=== PATIENT | male | born 1935 | race Caucasian/White ===

== ENCOUNTER 2020-02-26 15:33 | Inpatient (IN) | payer OTHER ==
[~2020-02-26] VITALS: Ht 175.3 cm; Wt 61.6 kg
[~2020-02-26 15:33] MED LIST: ASPIRIN EC81 M1 PO; CIPRO500 MG PO; HYDROCODON-ACE1 EAC7 PO; LIPITOR10 MG PO; MOBIC7.5 MG PO; NEURONTIN 300300 M1 PO
[2020-02-26 15:45] VITALS: BP 137/47
[2020-02-26 16:20] LABS: ABSOLUTE NEUTROPHILS 5.8 thou/uL (1.4-8.2); BASOPHILS 1.2 % (0.0-2.0); EOSINOPHILS 1.1 % (0.0-3.0); HEMATOCRIT 40.1 % (42.0-52.0); HEMOGLOBIN 13.3 gm/dL (14.0-18.0); LYMPHOCYTES 17.4 % (24.0-44.0); MCH 26.8 pg (26.0-34.0); MCHC 33.3 g/dL (28.0-37.0); MCV 80.6 fL (80.0-100.0); MONOCYTES 7.3 % (1.0-8.0); RBC 4.97 mil/uL (4.50-6.00); RDW 19.6 % (10.5-14.5)
[2020-02-26 16:24] LABS: ANION GAP 9 mmol/L (7-16); BUN 26 mg/dL (7-18); CALCIUM 9.1 mg/dL (8.5-10.1); CHLORIDE 105 mmol/L (98-107); CO2 25 mmol/L (21-32); CREATININE 2.3 mg/dL (0.7-1.3); GLUCOSE 118 mg/dL (74-106); POTASSIUM 4.9 mmol/L (3.5-5.1); SODIUM 139 mmol/L (136-145)
[2020-02-26 16:26] LABS: URINE BILIRUBIN NEGATIVE (Negative); URINE BLOOD 1+ (Negative); URINE CLARITY CLOUDY; URINE COLOR YELLOW; URINE GLUCOSE-RANDOM* NEGATIVE (Negative); URINE KETONES NEGATIVE (Negative); URINE LEUKOCYTES-REFLEX NEGATIVE (Negative); URINE NITRITE-REFLEX NEGATIVE (Negative); URINE PROTEIN (DIPSTICK) 3+ (Negative); URINE SPECIFIC GRAVITY >= 1.030 (1.005-1.035); URINE UROBILINOGEN 0.2 E.U./dl (0.2-1.0)
[2020-02-26 16:32] LABS: TROPONIN-I <0.06 ng/mL (<0.06)
[2020-02-26 16:38] LABS: HYALINE CASTS 4-10 Moderate /LPF (None Seen)
[2020-02-26 16:39] LABS: URINE RBC 0-2 Rare /HPF (0-2); URINE WBC-REFLEX 0-5 Rare /HPF (0-5)
[2020-02-26 16:40] LABS: PLATELET COUNT 146 thou/uL (150-400)
[2020-02-26 16:40] LABS: BACTERIA-REFLEX 1-9 Few /HPF (None Seen); CRYSTALS None Seen /LPF (None Seen); SQUAMOUS 0-3 Few /LPF (0-3)
[2020-02-26 16:41] LABS: PLATELET ESTIMATE NORMAL
[2020-02-26] MEDS ORDERED: KETOROLAC TROMET5 M1 EA. EYE (17:03)
[2020-02-26] MEDS ORDERED: OFLOXACIN5 ML OPHTHALMIC (17:04)
[2020-02-26] MEDS ORDERED: PRED FORTE 1% EY5 M1 OPHTHALMIC (17:04)
[2020-02-26] MEDS ORDERED: LOPRESSOR50 PO (17:05)
[2020-02-26] MEDS ORDERED: METFORMIN HCL500 M3 PO (17:05)
[2020-02-26 18:15] VITALS: BP 136/44
[2020-02-26 19:35] VITALS: BP 136/44
[2020-02-26] MEDS ORDERED: VITAMIN D310 MC4 PO (19:38)
[2020-02-26] MEDS ORDERED: VITAMIN B-121000 MC2 PO (19:39)
[2020-02-26] MEDS ORDERED: MIRTAZAPINE7.5 MG PO (19:39)
[2020-02-26 20:10] VITALS: BP 135/52
--- NOTE | 2020-02-26 23:14 | NUR ---
PATIENT WAS A NEW ADMISSION TO THE UNIT THIS SHIFT. HE ARRIVED VIA CART FROM THE ER AND WAS ABLE TO AMBULATE TO THE BED INCIDENT FREE WITH STANDBY ASSISTANCE. PATIENT IS FULLY ALERT AND ORIENTED AND ABLE TO PARTICIPATE IN HIS ADMISSION. BLOOD PRESSURE STABLE WITH PATIENT EXPERIENCING SEVERE BRADYCARDIA DUE TO 2:1 HEART BLOCK WITH PROVIDER AWARE. PATIENT TO BE ON BED REST THROUGHOUT SHIFT WITH CLOSE MONITORING. NURSE TO COMPLETE THE ADMISSION AND INITIATE PLAN OF CARE.
[2020-02-26 23:52] VITALS: BP 130/55
[2020-02-27] VITALS (11 sets, daily range): BP systolic 117–161; BP diastolic 37–82
[2020-02-27] MEDS ORDERED: MELOXICAM15 MG PO (00:26)
[2020-02-27] MEDS ORDERED: PROTONIX40 M4 PO (00:29)
[2020-02-27] MEDS ORDERED: DESYREL150 MG PO (00:40)
[2020-02-27 05:02] LABS: HEMATOCRIT 39.4 % (42.0-52.0); HEMOGLOBIN 12.5 gm/dL (14.0-18.0); MCHC 31.7 g/dL (28.0-37.0); RBC 4.8 mil/uL (4.50-6.00); RDW 19.1 % (10.5-14.5); WBC 8.5 thou/uL (4.0-11.0)
[2020-02-27 05:06] LABS: CALCIUM 8.1 mg/dL (8.5-10.1); CREATININE 3.1 mg/dL (0.7-1.3); POTASSIUM 5.6 mmol/L (3.5-5.1)
--- NOTE | 2020-02-27 07:51 | NUR ---
PATIENT WAS SHIFT CHANGE ADMISSION TO THE UNIT. PATIENT BECAME MORE CONFUSED AND IMPULSIVE THE NIGHT PROGRESSED. ORIENTED TO SELF AND IMPULSIVE, PATIENT WAS RE DIRECTABLE. PATIENTS PULSE STAYED IN 30'S TO HIGH 20'S THROUGHOUT SHIFT WITH BLOOD PRESSURE STABLE AND MOSTLY ASSYMPTOMATIC. PROVIDER WAS AWARE OF PATIENTS CONDITION. NPO FROM MIDNIGHT ON IN ANTICIPATION OF TODAYS PROCEDURES. CONTINUE PLAN OF CARE.
--- NOTE | 2020-02-27 08:36 | EKG ---
[facility] [place] [address] ELECTROCARDIOGRAM REPORT Name: VIRA NOVAK GARRETT Room #: 204-P ADM IN M.R.#: [id number] Admission: 02/26/20 Attend Phys: Vanessa Montgomery MD Discharge: Date of : 39 Report #: [id number] THIS REPORT FOR: cc: Tod Parker MD, Stanley P. MD Lundgren, Craig H. MD [facility] ~ THIS REPORT FOR: //name// [facility] ED Test Date: 2020-02-26 Test Time: 15:46:35 Pat Name: VIRA NOVAK Department: Room: 204 Gender: M First Sampler: OFELIA : 1935 Requested By: [place] Tamayo Order Number: [id number] MD: Ravin Hickey Measurements Intervals [place] Rate: 36 P: 72 WI: 228 QRS: 8 QRSD: 159 T: 79 QT: 563 QTc: 436 Interpretive Statements Predominant 2:1 AV block Right bundle branch block Probable anterior infarct, old Compared to ECG 04/06/2009 08:34:46 2:1 AV block now present Right bundle-branch block now present Electronically Signed On 02-27-2020 8:35:50 CDT by Ravin Hickey [email or web address] <ELECTRONICALLY SIGNED> By: Ravin Hickey MD, FAC 02/27/20 0835 1546 1546 Ravin Hickey MD, [facility] /EPI
--- NOTE | 2020-02-27 08:52 | EKG ---
[facility] [address] [place] [address] ELECTROCARDIOGRAM REPORT Name: VIRA NOVAK GARRETT Room #: 204-P ADM IN M.R.#: [id number] Admission: 02/26/20 Attend Phys: Vanessa Montgomery MD Discharge: Date of : 39 Report #: [id number] THIS REPORT FOR: cc: Tod Parker MD, Stanley P. MD Lundgren, Craig H. MD [facility] ~ THIS REPORT FOR: //name// [facility] Test Date: 2020-02-27 Test Time: 07:08:24 Pat Name: VIRA NOVAK Department: Room: 204 Gender: M Chef German: NILDA : 1935 Requested By: Jose M Mina Order Number: [id number] MD: Ravin Hickey Measurements Intervals [place] Rate: 33 P: 77 ND: QRS: 81 QRSD: 150 T: 40 QT: 595 QTc: 441 Interpretive Statements Complete AV block Right bundle branch block Baseline wander in lead(s) V5 Compared to ECG 02/26/2020 15:46:35 AV block, complete (third-degree) now present Electronically Signed On 02-27-2020 8:52:04 CDT by Ravin Hickey [email or web address] <ELECTRONICALLY SIGNED> By: Ravin Hickey MD, [facility] 02/27/20 0852 7 07 Ravin Hickey MD, FAC /EPI
[2020-02-27 11:06] LABS: CALCIUM 7.8 mg/dL (8.5-10.1); CREATININE 3.4 mg/dL (0.7-1.3); POTASSIUM 4.7 mmol/L (3.5-5.1)
--- NOTE | 2020-02-27 12:04 | NUR ---
Chart reviewed and case discussed with the care team. Pt lives at home with his spouse and has supportive family. He was indep with gait and most adl's with no assistive device. Pt's pcp is and manager intelligence Dr. Mina. Plan is for pacemaker pending covid test. No cm interventions indicated at this time. Pt was a little confused over night. Will ask the care team for therapy evals should they note any mobility concerns post op. Will follow along should dc needs arise.
--- NOTE | 2020-02-27 12:38 | 2DMMODE ---
[facility] [place] [address] 2 D/M-MODE ECHOCARDIOGRAM Name: VIRA NOVAK GARRETT Room #: 204-P ADM IN M.R.#: [id number] Admission: 02/26/20 Attend Phys: Vanessa Montgomery MD Discharge: Date of : 37 Report #: [id number] THIS REPORT FOR: cc: Tod Parker MD, Stanley P. MD Mancuso, Gerald M. MD [facility] ~ APPROVED REPORT Study performed: 02/27/2020 10:49:31 EXAM: Comprehensive 2D, Doppler, and color-flow Echocardiogram Patient Location: Bedside Room #: 204 Status: routine BSA: 1.81 HR: 35 bpm BP: 145/46 mmHg Rhythm: Bradycardia Other Information Study Quality: Good Indications Arrhythmia CAD Hypertension/HDD 2D Dimensions RVDd: 39.03 mm IVSd: 9.68 (7-11mm) LVOT Diam: 20.10 (18-24mm) LVDd: 52.90 mm PWd: 10.41 (7-11mm) Ascending Ao: 34.18 (22-36mm) LVDs: 37.29 (25-40mm) Aortic Root: 32.39 mm IVC: 24.00 mm Volumes Left Atrial Volume (Systole) Single Plane 4CH: 49.65 mL Single Plane 2CH: 60.86 mL LA ESV Index: 34.00 mL/m2 Aortic Valve AoV Peak Nayan.: 1.59 m/s AO Peak Gr.: 10.05 mmHg LVOT Max P.15 mmHg LVOT Max V: 1.02 m/s [facility] [address] [place] [address] 2 D/M-MODE ECHOCARDIOGRAM Name: KISHOREVIRA GARRETT Room #: 204-P [facility] IN ..#: [id number] Admission: 02/26/20 Attend Phys: Moise Brown Discharge: Date of : 37 Report #: [id number] Vmax: 2.04 cm2 Pulmonary Valve PV Peak Nayan.: 0.97 m/s PV Peak Gr.: 3.77 mmHg Tricuspid Valve TR Peak Nayan.: 3.39 m/s TR Peak Gr.: 46.09 mmHg PA Pressure: 56.00 mmHg Left Ventricle The left ventricle is normal size. There is hypokinesis in the apical wall. There is normal left ventricular wall thickness. The overall left ventricular systolic function appears normal. LVEF is 50%. This study is not technically sufficient to allow evaluation of the LV diastolic function. Right Ventricle The right ventricle is normal size. The right ventricular systolic function is normal. Atria Left atrium is dilated. Right atrium is dilated. Aortic Valve The aortic valve is normal in structure. Mild aortic regurgitation. There is no aortic valvular stenosis. Mitral Valve The mitral valve is normal in structure. Mild mitral regurgitation. No evidence of mitral valve stenosis. Tricuspid Valve The tricuspid valve is normal in structure. There is moderate tricuspid regurgitation. Estimated PAP 56 mmHg. There is moderate pulmonary hypertension. Pulmonic Valve The pulmonary valve is normal in structure. Mild pulmonic regurgitation. Great Vessels The aortic root is normal in size. IVC is dilated and collapses >50% with inspiration. Pericardium [facility] [address] [address] 2 D/M-MODE ECHOCARDIOGRAM Name: VIRA NOVAK Room #: 204-P [facility] IN .R.#: [id number] Admission: 02/26/20 Attend Phys: Moise Brown Discharge: Date of : 37 Report #: [id number] There is no pericardial effusion. <Conclusion> The left ventricle is normal size. LVEF is 50%. This study is not technically sufficient to allow evaluation of the LV diastolic function. The right ventricle is normal size. Left atrium is dilated. Right atrium is dilated. Mild aortic regurgitation. Mild mitral regurgitation. There is moderate tricuspid regurgitation. Estimated PAP 56 mmHg. There is moderate pulmonary hypertension. The aortic root is normal in size. There is no pericardial effusion. <ELECTRONICALLY SIGNED> By: Jose M Mina MD, [facility] 02/27/20 1237 1237 1237 Jose M Mina MD, FACC /INF
[2020-02-27 13:36] LABS: URINE BILIRUBIN 1+ (Negative); URINE BLOOD TRACE (Negative); URINE CLARITY CLEAR; URINE COLOR YELLOW; URINE GLUCOSE-RANDOM* NEGATIVE (Negative); URINE KETONES NEGATIVE (Negative); URINE LEUKOCYTES-REFLEX NEGATIVE (Negative); URINE NITRITE-REFLEX NEGATIVE (Negative); URINE PROTEIN (DIPSTICK) 3+ (Negative); URINE SPECIFIC GRAVITY >= 1.030 (1.005-1.035); URINE UROBILINOGEN 0.2 E.U./dl (0.2-1.0)
[2020-02-27 13:39] LABS: ICTOTEST (BILI CONFIRMATORY) Positive (Negative)
[2020-02-27 13:46] LABS: HYALINE CASTS 4-10 Moderate /LPF (None Seen)
[2020-02-27 13:47] LABS: SQUAMOUS 0-3 Few /LPF (0-3); URINE WBC-REFLEX 0-5 Rare /HPF (0-5)
[2020-02-27 13:48] LABS: BACTERIA-REFLEX 1-9 Few /HPF (None Seen); CRYSTALS None Seen /LPF (None Seen); URINE RBC 0-2 Rare /HPF (0-2)
--- NOTE | 2020-02-27 19:05 | NUR ---
ASSUMMED PT CARE AT APPROXIMATELY 0700. PT A&O X2. PT CONFUSED AND FORGETFUL THROUGHOUT THE DAY. FREQUENT REORIENTATION PROVIDED. ASSESSMENT CHARTED. FALL PRECAUTIONS IN PLACE. PT DENIES HAVING CHEST PAIN. PT DENIES HAVING SOB. PT DENIES HAVING ACUTE PAIN. INFORMED DR. ALBERT OF PT'S BUN AND SCREW MACHINE HAND LEVELS, CONTINUING CONFUSION, AND LOW URINE OUTPUT. DR. ALBERT STATED UNDERSTANDING AND ENTERED NEW ORDERS. NEW ORDERS IMPLEMENTED. WILL CONTINUE TO MONITOR LABS. PT HAD PACEMAKER PLACEMENT TODAY. L SUBLAVIAN SITE C/D/I. PT BACK TO FLOOR AT APPROXIMATELY 1730. VITAL SIGNS STABLE. BLOOD SUGARS STABLE. PT COMFORTABLE IN BED. BEDREST IN PLACE, IMMOBILIZER IN PLACE. PT DENIES HAVING FURTHER CONCERNS. EDUCATED SPOUSE ABOUT POC. SPOUSE STATED UNDERSTANDING AND DENIED HAVING FURTHER CONCERNS.
[2020-02-28] VITALS (47 sets, daily range): BP systolic 92–166; BP diastolic 41–78
[2020-02-28 06:43] LABS: PROT/CREAT RATIO 0.6; URINE CREATININE-RANDOM* 48.6 mg/dL; URINE PROTEIN-RANDOM* 28.9 mg/dL (<11.9)
[2020-02-28 08:05] LABS: CALCIUM 7.9 mg/dL (8.5-10.1); PHOSPHORUS 2.6 mg/dL (2.5-4.9); POTASSIUM 3.9 mmol/L (3.5-5.1)
--- NOTE | 2020-02-28 08:11 | NUR ---
ASSUME CARE 1900. A/O TO PERSON ONLY AND VERY IMPULSIVE. PT IS FORGETFUL AND CONFUSED AND NEEDS FREQUENT REDIRECTION AND EDUCATION ON THE NEED TO REMAIN BEDREST TILL MORNING. ASSESSMENT CHARTED. PROGRESSING SLOWLY WITH POC. INCONTINENCE NOTED WITH MODERATE URINE OUTPUT. BLADDER SCAN SHOWED 632 IN BLADDER, DESPITE ALL THE INCONTINENCE. ANNABEL RAMEY'S ORDERS TO INSERT PERALTA. 900ML NOTED ON INITIAL INDERTION. NO DISTRESS NOTED AND PT IS APACED. WILL CONTINUE TO MONIOR AND FOLLOW WITH POC
[2020-02-28 08:50] LABS: ALBUMIN 3.2 g/dL (3.4-5.0)
[2020-02-28 08:55] LABS: CREATININE 2.4 mg/dL (0.7-1.3)
[2020-02-28 10:03] LABS: BE(vivo) -14.9 mmol/L (-2 to +3); HCO3 11.7 mmol/L (22.0-26.0); PCO2 30.3 mmHg (35.0-45.0); PO2 60.3 mmHg (80.0-100.0); pH 7.204 (7.360-7.450)
--- NOTE | 2020-02-28 12:16 | 2DMMODE ---
[address] [address] 2 D/M-MODE ECHOCARDIOGRAM Name: VIRA NOVAK Room #: 250-P ADM IN M.R.#: [id number] Admission: 02/26/20 Attend Phys: Vanessa Montgomery MD Discharge: Date of : 37 Report #: [id number] THIS REPORT FOR: cc: Tod Parker MD, Stanley P. MD Lammoglia, Francisco J. MD ~ APPROVED REPORT Study performed: 02/28/2020 10:48:30 EXAM: Limited 2D Echocardiogram Patient Location: Bedside Room #: 204 Status: routine BSA: 1.81 HR: 110 bpm BP: 149/71 mmHg Other Information Study Quality: Technically Difficult Technically limited study due to inability to position patient, uncooperative patient. Left Ventricle Very limited study. EF appears grossly normal. Right Ventricle Pacemaker lead is present in the right ventricle. Atria A pacemaker is seen in the right atrium consistent with history. Pericardium There is no pericardial effusion. <Conclusion> Very limited study. EF appears grossly normal. Pacemaker lead is present in the right ventricle. A pacemaker is seen in the right atrium consistent with [address] [address] 2 D/M-MODE ECHOCARDIOGRAM Name: VIRA NOVAK Room #: 250-P ADM IN M.R.#: [id number] Admission: 02/26/20 Attend Phys: Moise Brown Discharge: Date of : 37 Report #: [id number] history. There is no pericardial effusion. <ELECTRONICALLY SIGNED> By: Jason Faustin MD 02/28/201215 15 15 Jason Faustin MD /INF
[2020-02-28 12:19] LABS: BE(vivo) -13.3 mmol/L (-2 to +3); HCO3 14.3 mmol/L (22.0-26.0); PCO2 39.5 mmHg (35.0-45.0); PO2 173.8 mmHg (80.0-100.0); sO2 98.8 % (92.0-98.0)
[2020-02-28 12:20] LABS: pH 7.178 (7.360-7.450)
--- NOTE | 2020-02-28 12:30 | NUR ---
PT CARE ASSUMED APPROX 0700. ASSESSMENT CHARTED. PT WAS VERY CONFUSED THIS AM BUT VSS AND BREATH SOUNDS CLEAR. UPON ROUNDING AROUND 0900 IT WAS NOTED THAT PT HAD CRACKLES AND WAS TACHYPNEIC. VITAL SIGNS WERE REASSESSED AT IT WAS NOTED THAT PT WAS DESATTING WOTH 02 LEVEL IN 70s. RESP THERAPIST WAS PAGED AND CAME AND PLACED NONREBREATHER ON PT. SAT LEVEL REMAINED LOW SO ABGs WERE OBTAINED AND PULM CONSULT PLACED. ICU BED REQUESTED AT THAT TIME. DR HARKINS ROUNDED AND ASSESSED PT. BIPAP WAS ORDERED. ABGS WERE CRITICAL AND SATS REMAINED LOW ON BIPAP. ABGS WERE REPORTED TO DR LAW WHEN HE CALL BACK FROM CONSULT. ONCE DR LAW ROUNDED PT WAS INTUBATED. PT TRANSFERRED TO ICU. RECEIVING ICU NURSE DENIED QUESTIONS OR CONCERNS REGARDING POC.
--- NOTE | 2020-02-28 12:49 | NUR ---
VASCULAR ACCESS CONSULTED FOR CVAD. PT'S LABS,MEDS,HX,ORDER AND CONSENT VERIFIED. RIJ WAS WIDELY PATENT WITH USG. 6FR TL POWER JACC 25CM INSERTED TO 8CM EXTERNAL. STAT CXR ORDERED. PT INTUBATED TOLERATED WELL. CONSENT PER DR LAW FOR MEDICAL NECCESSITY.
--- NOTE | 2020-02-28 14:03 | NUR ---
RIJ CXR CONFIRMED PLACEMENT IN LOWER SVC. RELEASED FOR IMMEDIATE USE PER PROTOCOL TO MARLEEN BECERRIL
[2020-02-28 14:09] LABS: HEMATOCRIT 37.7 % (42.0-52.0); MCH 26.1 pg (26.0-34.0); MCHC 31.9 g/dL (28.0-37.0); RBC 4.6 mil/uL (4.50-6.00); RDW 19.9 % (10.5-14.5); WBC 13.6 thou/uL (4.0-11.0)
[2020-02-28 14:14] LABS: CALCIUM 7.7 mg/dL (8.5-10.1); CREATININE 2.7 mg/dL (0.7-1.3); POTASSIUM 4.8 mmol/L (3.5-5.1)
[2020-02-28 16:40] LABS: BE(vivo) -4.6 mmol/L (-2 to +3); HCO3 20.5 mmol/L (22.0-26.0); PCO2 38.4 mmHg (35.0-45.0); PO2 314.7 mmHg (80.0-100.0); pH 7.346 (7.360-7.450); sO2 99.7 % (92.0-98.0)
--- NOTE | 2020-02-28 18:40 | NUR ---
PATIENT ADMITTED FROM CCU BY THIS RN; PATIENT INTUBATED AND SEDATED ON PROPOFOL. BP 83/37; HR 99; RR 33 SP02 95% ON FIO2 100%, PEEP 8. PATIENT'S CALLED AND UPDATED BY CCU RN. BELONGINGS AT THE BEDSIDE, PATIENT VISITED AT 1400, WENT HOME WITH PATIENT'S PHONE, BRACELET, AND WATCH. REMAINING BELONGINGS (CLOTHING AT THE BEDSIDE). PROPOFOL REDUCED FROM 40MCG/MIN TO 20, PATIENT NOT MOVING ANY EXTREMITY. WEAK COUGH/GAG REFLEX.
[2020-02-29] VITALS (90 sets, daily range): BP systolic 87–138; BP diastolic 31–88
[2020-02-29 05:11] LABS: BE(vivo) -2.9 mmol/L (-2 to +3); HCO3 20.7 mmol/L (22.0-26.0); PCO2 32.5 mmHg (35.0-45.0); pH 7.422 (7.360-7.450); sO2 98.8 % (92.0-98.0)
[2020-02-29 05:57] LABS: HEMOGLOBIN 12.4 gm/dL (14.0-18.0); MCH 25.8 pg (26.0-34.0); MCHC 31.8 g/dL (28.0-37.0); MCV 81.3 fL (80.0-100.0); RBC 4.8 mil/uL (4.50-6.00); RDW 19.4 % (10.5-14.5); WBC 9.3 thou/uL (4.0-11.0)
[2020-02-29 06:22] LABS: CREATININE 2.9 mg/dL (0.7-1.3)
[2020-02-29 06:39] LABS: POTASSIUM 3.7 mmol/L (3.5-5.1)
--- NOTE | 2020-02-29 08:58 | NUR ---
ASSESSMENTS AND INTERVENTIONS DOCCUMENTED. RN ASSUMED CARE AT 0700. PATIENT RESTING. RENAL BY TO ASSESS PATIENT, ORDERS RECIEVED. PATIENT PLACED ON CPAP MODE PE RT. PATIENT TOLERATING IT WELL AT THIS TIME.
[2020-02-29 09:58] LABS: BE(vivo) -3.5 mmol/L (-2 to +3); HCO3 20.7 mmol/L (22.0-26.0); PO2 78.5 mmHg (80.0-100.0); sO2 95.6 % (92.0-98.0)
[2020-03-01] VITALS (36 sets, daily range): BP systolic 110–170; BP diastolic 36–69
--- NOTE | 2020-03-01 03:58 | NUR ---
ASSUMED PT CARE AROUND 2300. PT REMAINED SEDATED WITH PROPOFOL ON THE VENT. V-PACED ON TELE. LEVO GTT FOR BP MANAGEMENT. TITRATED LEVO GTT DOWN SBP HAS BEEN 130S-140S. REPOSITIONED TO PREVENT SKIN BREAKDOWN. ORAL CARE PROVIDED. PERALTA TO DD WITH ADEQUATE URINE OUTPUT. FALL PRECAUTIONS IN PLACE. PROGRESSING SLOWLY TOWARD POC GOALS. WILL CONTINUE TO MONITOR FURTHER.
[2020-03-01 06:02] LABS: HEMATOCRIT 37.8 % (42.0-52.0); HEMOGLOBIN 12.5 gm/dL (14.0-18.0); MCH 26.9 pg (26.0-34.0); MCHC 33.1 g/dL (28.0-37.0); MCV 81.5 fL (80.0-100.0); RBC 4.63 mil/uL (4.50-6.00); RDW 19.8 % (10.5-14.5)
[2020-03-01 06:03] LABS: ALBUMIN 2.7 g/dL (3.4-5.0); CALCIUM 7.9 mg/dL (8.5-10.1); CREATININE 2.7 mg/dL (0.7-1.3); PHOSPHORUS 3.4 mg/dL (2.5-4.9); POTASSIUM 3.5 mmol/L (3.5-5.1)
--- NOTE | 2020-03-01 07:52 | NUR ---
0400 - TITRATED LEVO GTT OFF MAP>= 60. DECREASED PROPOFOL GTT PT HAS BEEN RESTING CALMLY ALL NIGHT AND IS TOLERATING VENT WELL. PT'S CALLED UNIT THIS MORNING. SHE WAS PROVIDED AN UPDATE ON HOW PATIENT DID DURING THE NIGHT. REPORT GIVEN TO ONCOMING NURSE.
--- NOTE | 2020-03-01 08:37 | EKG ---
[facility] [place] [address] ELECTROCARDIOGRAM REPORT Name: VIRA NOVAK Room #: 250-P ADM IN M.R.#: [id number] Admission: 02/26/20 Attend Phys: Vanessa Montgomery MD Discharge: Date of : 37 Report #: [id number] THIS REPORT FOR: cc: Tod Parker MD, Stanley P. MD Lundgren, Craig H. MD [facility] ~ THIS REPORT FOR: //name// [facility] Test Date: 2020-02-28 Test Time: 10:04:26 Pat Name: VIRA NOVAK Department: Room: 250 Gender: M Assistant Engineer: Anna BARDALES : 1935 Requested By: Saniya Clements Order Number: [id number] MD: Ravin Hickey Measurements Intervals [place] Rate: 72 P: 71 RI: 208 QRS: -77 QRSD: 151 T: 89 QT: 455 QTc: 499 Interpretive Statements Atrial-sensed ventricular-paced complexes No further analysis attempted due to paced rhythm Baseline wander in lead(s) II,aVR Compared to ECG 02/27/2020 07:08:24 Pacing is now present Electronically Signed On 03-01-2020 8:36:53 CDT by Ravin Hickey [email or web address] <ELECTRONICALLY SIGNED> By: Ravin Hickey MD, FAC 03/01/20 0836 1004 1004 Ravin Hickey MD, [facility] /EPI
[2020-03-01 10:11] LABS: BE(vivo) -0.9 mmol/L (-2 to +3); HCO3 22.9 mmol/L (22.0-26.0); PCO2 35.6 mmHg (35.0-45.0); PO2 83.9 mmHg (80.0-100.0); pH 7.427 (7.360-7.450); sO2 96.6 % (92.0-98.0)
--- NOTE | 2020-03-01 11:36 | HC ---
[facility] [place] [address] CONSULTATION Name: VIRA NOVAK Room #: 250-P ADM IN M.R.#: [id number] Admission: 02/26/20 Attend Phys: Vanessa Montgomery MD Discharge: Date of : 37 Report #: [id number] THIS REPORT FOR: cc: Tod Parker MD, Stanley P. MD Couchonnal, Luis F. MD ~ CC: Vanessa Parker DATE OF SERVICE: 02/27/2020 ELECTROPHYSIOLOGY CONSULTATION REASON FOR CONSULTATION: Heart block. HISTORY OF PRESENT ILLNESS: The patient is an 84-year-old male with history of coronary artery disease, status post prior myocardial infarction and cardiac arrest who follows with Dr. Mina who presents to the Emergency Room with increased fatigue, lightheadedness, and shortness of breath with an EKG, which I reviewed demonstrating complete heart block. He denies fevers or chills. PAST MEDICAL HISTORY: As above. SOCIAL HISTORY: Does not smoke. FAMILY HISTORY: Noncontributory. ALLERGIES: Reviewed. MEDICATIONS: Reviewed including beta blockers. REVIEW OF SYSTEMS: A 12-point review of systems was performed and was negative other than what I mentioned above. PHYSICAL EXAMINATION: GENERAL: No acute distress. HEENT: Oropharynx is clear. NECK: Supple, no thyromegaly. HEART: Regular rhythm, bradycardic. No murmurs. LUNGS: Clear bilaterally. ABDOMEN: Soft, nontender. EXTREMITIES: No clubbing, cyanosis, or edema. NEUROLOGIC: Cranial nerves 2-12 intact. PSYCH: Intact. [facility] [address] [place] [address] CONSULTATION Name: VIRA NOVAK Room #: 250-P ADM IN M.R.#: [id number] Admission: 02/26/20 Attend Phys: Vanessa Montgomery MD Discharge: Date of : 39 Report #: [id number] LABORATORY DATA: Reviewed. Potassium 5.6, creatinine 3.1. COVID-19 antigen negative. COVID-19 PCR pending. ASSESSMENT: Complete heart block. PLAN: The patient has evidence of complete heart block. He does need continued beta kaelyn therapies for his known coronary artery disease. He will be prepped for a dual chamber pacemaker implantation. We discussed the details of the procedure including the risks, which include but not limited to bleeding, infection, vascular damage, cardiac perforation and pneumothorax. He understands these risks and is willing to proceed. <ELECTRONICALLY SIGNED> By: Crow Batres MD 03/01/20 1136 0731 08 Crow Batres MD /nt
--- NOTE | 2020-03-01 15:27 | NUR ---
chart review. pt remain on vent, possible ready to wean in next day or so. tf for nutritional support.
--- NOTE | 2020-03-01 19:55 | NUR ---
0730-ASSUMED CARE OF PT.--VW 1629- KEPT INFORMED OF RESP STATUS. AT BEDSIDE. MUCH EMO SUPPORT GIVEN.--VW 1929-SLOWLY PROGRESSING. --VW
[2020-03-02] VITALS (15 sets, daily range): BP systolic 103–160; BP diastolic 43–61
[2020-03-02 03:50] LABS: BE(vivo) 0.6 mmol/L (-2 to +3); HCO3 24.7 mmol/L (22.0-26.0); PCO2 37.6 mmHg (35.0-45.0); PO2 74.9 mmHg (80.0-100.0); pH 7.435 (7.360-7.450); sO2 95.5 % (92.0-98.0)
--- NOTE | 2020-03-02 06:00 | NUR ---
REMAINS INTUBATED AND SEDATED PROPOFOL AT 20 MCG. ATTEMPTS TO PULL AT ET TUBE UO ADEQ LEFT CHEST PACEMAKER INCISION DRY AND INTACT. REMAINS 100 % PACED WILL CONT TO MONITOR.
[2020-03-02 07:09] LABS: ABSOLUTE NEUTROPHILS 5.9 thou/uL (1.4-8.2); BASOPHILS 0.8 % (0.0-2.0); EOSINOPHILS 3.1 % (0.0-3.0); HEMATOCRIT 35.4 % (42.0-52.0); HEMOGLOBIN 11.5 gm/dL (14.0-18.0); LYMPHOCYTES 4.9 % (24.0-44.0); MCH 26.2 pg (26.0-34.0); MCHC 32.6 g/dL (28.0-37.0); MCV 80.3 fL (80.0-100.0); MONOCYTES 7.6 % (1.0-8.0); POLYS 83.6 % (36.0-66.0); RDW 19.3 % (10.5-14.5); WBC 7.1 thou/uL (4.0-11.0)
[2020-03-02 07:35] LABS: ALBUMIN 2.5 g/dL (3.4-5.0); CALCIUM 8.1 mg/dL (8.5-10.1); POTASSIUM 3.7 mmol/L (3.5-5.1); TOTAL BILIRUBIN 2.3 mg/dL (0.2-1.0)
[2020-03-02 10:53] LABS: ANISOCYTOSIS 1+; OVALOCYTES OCCASIONAL; PLATELET COUNT 98 thou/uL (150-400); PLATELET ESTIMATE SLIGHTLY DECREASED; POIKILOCYTOSIS SLIGHT
[2020-03-02 13:27] LABS: BE(vivo) 1.4 mmol/L (-2 to +3); HCO3 25.5 mmol/L (22.0-26.0); PCO2 38.1 mmHg (35.0-45.0); PO2 79.8 mmHg (80.0-100.0); pH 7.443 (7.360-7.450); sO2 96.2 % (92.0-98.0)
--- NOTE | 2020-03-02 13:41 | NUR ---
Nutrition: Pt npo day 4 on the vent. REC initiate tube feeds of glucerna 1.2 to reach goal of 55 mL/hr with current propofol demands.
--- NOTE | 2020-03-02 18:28 | NUR ---
PT AWAKE, ALERT AND ORIENTED X2 WITH FORGETFULNESS. ANSWERING YES/NO QUESTIONS BY NODDING.DR. VILLELA ROUNDED ON PT, NO NEW ORDERS, PULMONARY ROUNDED, NEW ORDERS FOR CPAP TRIALS. ORDERS IMPLEMENTED, PEEP 5, PS 6. ABGs DONE FOLLOWING WEANING. PT TOLARATED WEANING WELL. NOW BACK ON CMV @30% FiO2.
[2020-03-03] VITALS (27 sets, daily range): BP systolic 100–169; BP diastolic 46–84
[2020-03-03 04:50] LABS: BE(vivo) 1.5 mmol/L (-2 to +3); HCO3 25.1 mmol/L (22.0-26.0); PCO2 36.1 mmHg (35.0-45.0); PO2 81.3 mmHg (80.0-100.0); sO2 96.6 % (92.0-98.0)
[2020-03-03 05:40] LABS: ABSOLUTE NEUTROPHILS 4.5 thou/uL (1.4-8.2); BASOPHILS 0.7 % (0.0-2.0); EOSINOPHILS 5.6 % (0.0-3.0); HEMOGLOBIN 11.7 gm/dL (14.0-18.0); LYMPHOCYTES 7.3 % (24.0-44.0); MCH 26.4 pg (26.0-34.0); MCHC 32.3 g/dL (28.0-37.0); MCV 81.7 fL (80.0-100.0); MONOCYTES 7.3 % (1.0-8.0); PLATELET COUNT 82 thou/uL (150-400); POLYS 79.1 % (36.0-66.0); RBC 4.41 mil/uL (4.50-6.00); RDW 19.5 % (10.5-14.5); WBC 5.6 thou/uL (4.0-11.0)
--- NOTE | 2020-03-03 06:34 | NUR ---
PT NO FOLLOWING COMMANDS. PT STARTED ON PRECEDEX AND TITRATING DOWN ON PROPOFOL. URINE OUTPUT ADEQUATE. CONTINUE TO MONITOR.
[2020-03-03 12:18] LABS: ALBUMIN 2.3 g/dL (3.4-5.0); CREATININE 1.4 mg/dL (0.7-1.3); PHOSPHORUS 2.4 mg/dL (2.5-4.9); POTASSIUM 3.7 mmol/L (3.5-5.1)
--- NOTE | 2020-03-03 13:18 | HC ---
[facility] [place] [address] CONSULTATION Name: VIRA NOVAK GARRETT Room #: 250-P ADM IN M.R.#: [id number] Admission: 02/26/20 Attend Phys: Vanessa Montgomery MD Discharge: Date of : 39 Report #: [id number] THIS REPORT FOR: cc: Tod Parker MD, Stanley P. MD Mancuso, Gerald M. MD FACC ~ CC: Vanessa Parker DATE OF SERVICE: 02/26/2020 CARDIOLOGY CONSULT HISTORY OF PRESENT ILLNESS: The patient is an 84-year-old male well known to myself, although lost to me for the last 4 years. He is admitted from Dr. Parker's office by ambulance. Having some near syncope, extreme fatigue, and lightheadedness. Although he has not fallen gotten hurt, he looks to be with a heart rate in the 30s and blood pressure in the 120s to 130s. Appears to be a second-degree heart block type 2. It does not appear to be a Wenckebach or of a higher grade block. He did take 50 mg of Toprol today. He has had a history of bypass surgery in 1994. He had an arrest at that time and an anterior apical infarct at that time. My last imaging with him was in 2015. There was an akinetic anterior apical wall and a nuclear test at that time did not show significant ischemia. MEDICATIONS: He has been compliant with metoprolol, metformin, atorvastatin and a baby aspirin. Pantoprazole 40, vitamin D, B12, atorvastatin was 20 mg, metoprolol 50 mg, meloxicam, and trazodone at night. PAST MEDICAL HISTORY: Positive for bypass surgery in 1994 and anterior apical infarct, mild ischemic cardiomyopathy, hypertension, hypercholesterolemia, rotator cuff surgery, recent eye surgery, reflux esophagitis, mild carotid disease. SOCIAL HISTORY: He is somewhat , does have a child. No current alcohol or tobacco, previously so. He is retired. He lives independently. He is accompanied by his ex-. REVIEW OF SYSTEMS: Essentially negative except for stated above. FAMILY HISTORY: Positive for premature coronary artery disease. PHYSICAL EXAMINATION: GENERAL: He is pleasant, alert. VITAL SIGNS: Pulse is 35-37; blood pressure is 120s/50s. [facility] [address] [place] [address] CONSULTATION Name: VIRA NOVAK BLAIN Room #: [facility] IN M.R.#: [id number] Admission: 02/26/20 Attend Phys: Vanessa Montgomery MD Discharge: Date of : 39 Report #: [id number] HEENT: Eyes: No xanthelasmas. Pharynx is clear. NECK: Shows preserved upstrokes without JVD or bruits. LUNGS: Clear. There is slight prolonged expiratory phase. CARDIOVASCULAR: Regular rhythm, although significant bradycardic. There is a faint systolic murmur. ABDOMEN: Soft. No HSM or abdominal bruit. EXTREMITIES: Reveal trace of edemas. Pulses intact. NEUROLOGIC: Nonfocal. SKIN: Warm and dry without xanthoma or ulcer. MUSCULOSKELETAL: Generalized arthritic changes. LABORATORY WORK: Potassium 4.9, creatinine 2.3, glucose 110. H and H of 13 and 40, white count 8. UA looks to be unremarkable. Chest x-ray, no acute abnormalities. CT of the head, age-related findings. ASSESSMENT: 1. High-degree heart block, second-degree type 2. 2. Significant bradycardia secondary to above with maintained blood pressure. 3. Coronary artery disease with prior coronary artery bypass grafting. 4. Mild ischemic cardiomyopathy with history of anterior apical infarct. 5. Chronic kidney disease with some possible azotemia. Recommend fluids and holding NSAIDs. 6. Hypertension. 7. Hypercholesterolemia. RECOMMENDATIONS AND PLAN: We will agree with IV fluids for the renal insufficiency and hydration gently. We will allow him to eat. He is asymptomatic. He presumably although this is in light of metoprolol, this looks to be higher degree heart block than induced by that medication. We will observe overnight telemetry and probable permanent pacemaker indicated. I should note that both of his siblings have had pacemakers around age 80. I discussed this plan with the patient and his . We will continue to follow with you. Thank you for asking me to assist in the care of this patient. We will obtain echo Doppler in the morning in addition to repeating an EKG. <ELECTRONICALLY SIGNED> By: Jose M Mina MD, FACC 03/03/20 1318 1758 1846 Jose M Mina MD, FACC /nt
--- NOTE | 2020-03-03 16:21 | NUR ---
SONIA reviewed chart. Pt remains in ICU. Intubated. Plans for cpap trials today. Pt will need therapy evals when able to participate. Following to assist as needed with discharge planning.
--- NOTE | 2020-03-03 20:12 | NUR ---
ASSUMED PT CARE AT 0700. ASSESSMENTS COMPLETED AND DOCUMENTED. CPAP WEANING TRIALS ATTEMPTED X2 AT 0800 AND AT 1140. PT NOT TOLARATING WEANING, LASTED ABOUT 20 MINUTES AND WAS NOTED TO HAVE INCREASED HR, RR, AND SWEATING. PT MORE AGITATED AND RESTLESS DURING WEANING WHILE OFF PRECEDEX PER ORDERS- NODDS YES THAT HE CANNOT BREATH. PT PLACED BACK ON THE VENT, PRECEDEX RESTARTED. FAMILY AT BED SIDE
[2020-03-03 23:47] LABS: BE(vivo) 0.6 mmol/L (-2 to +3); HCO3 24.1 mmol/L (22.0-26.0); PCO2 35.1 mmHg (35.0-45.0); PO2 83.1 mmHg (80.0-100.0); pH 7.455 (7.360-7.450); sO2 96.7 % (92.0-98.0)
[2020-03-04] VITALS (18 sets, daily range): BP systolic 20–146; BP diastolic 40–81
--- NOTE | 2020-03-04 04:46 | NUR ---
Assumed pt care at 1900. Pt is intubated and sedated. Follows command. No sign of distess noted. Fall precaution in place. Pt is restrained and is NPO. Assessment completed and documented. Pt is repositioned. Scheduled meds adminisetered to pt. Pt is extubated at 23:[address] Fritz aware per RT. Pt is stable after extubation. O2 satuaration in stable >90's, heart rate stable. No sign of distress noted. Pt is stable through the shift. Continue to monitor pt. No acute events. 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
[2020-03-04 05:36] LABS: ABSOLUTE NEUTROPHILS 4.2 thou/uL (1.4-8.2); BASOPHILS 1.3 % (0.0-2.0); HEMOGLOBIN 11.7 gm/dL (14.0-18.0); LYMPHOCYTES 10.1 % (24.0-44.0); MCH 26.4 pg (26.0-34.0); MCHC 32.6 g/dL (28.0-37.0); MCV 80.9 fL (80.0-100.0); MONOCYTES 9.6 % (1.0-8.0); PLATELET COUNT 95 thou/uL (150-400); RBC 4.45 mil/uL (4.50-6.00); RDW 19.1 % (10.5-14.5); WBC 5.6 thou/uL (4.0-11.0)
[2020-03-04 06:02] LABS: ALBUMIN 2.1 g/dL (3.4-5.0); CALCIUM 7.6 mg/dL (8.5-10.1); CREATININE 1.3 mg/dL (0.7-1.3); PHOSPHORUS 1.8 mg/dL (2.5-4.9); POTASSIUM 3.3 mmol/L (3.5-5.1); TOTAL BILIRUBIN 1.9 mg/dL (0.2-1.0); TOTAL PROTEIN 5.5 g/dL (6.4-8.2)
--- NOTE | 2020-03-04 09:31 | NUR ---
ASSUMMED CARE OF PT EARLIER. PT OBSESSING OVER PHONE,THAT SOMEONE STOLE HIS & REPROGRAMMED IT.VERY SUSPICIOUS OF ANYTHING BEING DONE.MUCH TIME,REASSURANCE SPENT W PT. IS WORKING AND MESSAGE LEFT FOR HER TO CALL SO SHE CAN TALK W PT.PT BECOMING INCREASINGLY AGITATED,REFUSING TO WEAR O2 (STILL REQUIRING O2), VBERSED FINALLY GIVEN AND PT MORE SETTLED.--VW
[2020-03-04 23:28] LABS: BE(vivo) 1.3 mmol/L (-2 to +3); HCO3 23.2 mmol/L (22.0-26.0); PCO2 28.7 mmHg (35.0-45.0); PO2 60.4 mmHg (80.0-100.0); pH 7.526 (7.360-7.450); sO2 93.9 % (92.0-98.0)
[2020-03-05] VITALS (25 sets, daily range): BP systolic 115–166; BP diastolic 45–103
--- NOTE | 2020-03-05 00:55 | NUR ---
ASSUMED CARE OF PATIENT AT 1900. ALERT TO SELF, TELLS RAMBLING STORIES. DOES NOT ANSWER ALL QUESTIONS APPROPRIATLEY. ORDERS OBTAINED FOR ABG AND AMMONIA. ABG SHOWED LOW PO2. PATIENT PLACED ON NASAL CANNULA. REMAINS RESTLESS, FIDGETY, WANTING TO GET DRESSED, GO GET HIS CAR. VERY DIFFICULT TO REDIRECT. RESTRAINTS IN PLACE. CALLED, UPDATED ON PATIENT STATUS. VERBALIZES UNDERSTANDING. NOT PROGRESSING TOWARDS POC GOALS.
[2020-03-05 06:09] LABS: ALBUMIN 2.5 g/dL (3.4-5.0); CALCIUM 7.5 mg/dL (8.5-10.1); CREATININE 1.7 mg/dL (0.7-1.3); PHOSPHORUS 2.2 mg/dL (2.5-4.9); POTASSIUM 3.2 mmol/L (3.5-5.1)
--- NOTE | 2020-03-05 14:33 | NUR ---
ON-GOING ASSESSMENT: CM REVIEWED CHART. PT IS NOW EXTUBATED AND ON 2L OXYGEN. PT HOWEVER IS CONFUSED AND IRRITABLE AND PULLING AT LINES. PT UNABLE TO CURRENTLY WORK WITH PT/OT. CM WILL CONTINUE TO FOLLOW TO ASSIST NEEDED ONCE PT IS ABLE TO WORK WITH THERAPIES TO HELP DETERMINE NEEDS. CM WILL CONTINUE TO FOLLOW TO ASSIST NEEDED.
--- NOTE | 2020-03-05 15:26 | NUR ---
ASSUMED PATIEN'S CARE AT 0700. PT AWAKE, A/OX1, DENIES PAIN. ASSESSMENT COMPLETED AND DOCUMENTED. NOTED CONFUSION, FORGETFULNESS, & DELIRIOUS. DR. ADELSO EDMONDS, NEW ORDERS FOR RISPERIDONE AND LORAZEPAM GIVEN AND IMPLEMENTED. DR. ROOSEVELT EDMONDS, ORDERS- D5W @100ML/HR POTASSIUM AND RENAL PANEL. NEW #20 GAUGE PIV STARTED, IVF INFUSING. PT FINALLY RESTING WELL AFTER BED BATH & IVP LORAZEPAM. PATIENT'S CALLED TO CHECK ON HIM. RN UPDATED ON PATIENT'S CARE & RN HELD PHONE ON PT'S EAR SO COULD TALK TO PT. NO CONCERNS VOICED, WILL BE IN TO VISIT PT AFTER WORK.
[2020-03-06] VITALS (39 sets, daily range): BP systolic 130–196; BP diastolic 56–109
[2020-03-06 06:00] LABS: ALBUMIN 2.3 g/dL (3.4-5.0); CALCIUM 7.8 mg/dL (8.5-10.1); CREATININE 1.6 mg/dL (0.7-1.3); PHOSPHORUS 2.3 mg/dL (2.5-4.9); POTASSIUM 3.3 mmol/L (3.5-5.1)
[2020-03-06 12:47] LABS: BE(vivo) -0.6 mmol/L (-2 to +3); HCO3 22.5 mmol/L (22.0-26.0); pH 7.465 (7.360-7.450); sO2 96.1 % (92.0-98.0)
--- NOTE | 2020-03-06 15:15 | NUR ---
rPt remains confused. Pt has confused conversation the his significant other Skin is warm. Temperature axilly is 99.2. Pt q lqced on bedpan and had a large loose stool. Dr Fritz called with status report and ABG. s
--- NOTE | 2020-03-06 19:00 | NUR ---
Pt continues to be confused despite many attempts to reorient. Paced rhythm. Continues to have non-productive cough and tachypnic but does not appear in distress. O2 sat mid 90's on two liter nasal cannula. Pt has been fed meals today and swallowing precautions followed. Pt did have occasional coughing during the meal. Low grade temp mid-day. Continue to support and work toward goals. Report given to RN assuming care.
[2020-03-07] VITALS (30 sets, daily range): BP systolic 120–185; BP diastolic 48–85
--- NOTE | 2020-03-07 03:11 | NUR ---
Pt pulled out miller catheter while bilateral wrist restraints on. Significant bleeding from penis noted, at this time bleeding has stopped. Miller catheter had 350 dark chi cloudy urine. Will encourage pt to void in the urinal and monitor.
--- NOTE | 2020-03-07 04:52 | NUR ---
PT INCONTINENT OF URINE, HE IS CONFUSED AND NOT ORIENTED TO USE OF CALL LIGHT. ALSO PT WITH FEVER, TEMP 101, TYLENOL WAS GIVEN.
[2020-03-07 06:06] LABS: HEMOGLOBIN 12.2 gm/dL (14.0-18.0); MCH 26.3 pg (26.0-34.0); MCHC 32.1 g/dL (28.0-37.0); MCV 82.1 fL (80.0-100.0); RBC 4.63 mil/uL (4.50-6.00); RDW 19.8 % (10.5-14.5); WBC 8.5 thou/uL (4.0-11.0)
[2020-03-07 06:20] LABS: ALBUMIN 2.8 g/dL (3.4-5.0); CALCIUM 8.5 mg/dL (8.5-10.1); CREATININE 1.7 mg/dL (0.7-1.3); PHOSPHORUS 1.5 mg/dL (2.5-4.9); POTASSIUM 3.5 mmol/L (3.5-5.1)
--- NOTE | 2020-03-07 19:00 | NUR ---
Pt remains confused. Out of bed with assistance to the bedside chair this evening. Pt able to support his weight with standby assist. Pt's assisted with feeding his meals today. Voided once per urinal without difficulty. (catheter pulled out last night by pt). Continues to have rapid shallow breathing. O2 at two liters. Continue to suppor and work toward goals. Report given to RN assuming care.
[2020-03-08] VITALS (30 sets, daily range): BP systolic 110–182; BP diastolic 62–122
--- NOTE | 2020-03-08 06:05 | NUR ---
PT ALERT AND ORIENTED TO SELF AN SITUATION UPON ASSUMPTION OF CARE. HE KNEW THE PRESIDENT WAS GRETA BUT THOUGHT THE YEAR WAS 2010. PT IS STABLE, ON ROOM AIR WITH SATS OF 97%. SLEPT WELL FOR MOST OF THE NOC, LARGE BM THIS SHIFT WELL INCONTINENCE HENCE UNMESURABLE URINE OUTPUT. SPOKE TO PT'S FAUSTO AND UPDATED HER ABOUT PT'S STAUS. PT IS CURRENLTY STABLE AND WILL CONTINUE TO MONITOR
[2020-03-08 06:12] LABS: ALBUMIN 2.5 g/dL (3.4-5.0); CREATININE 1.6 mg/dL (0.7-1.3); PHOSPHORUS 1.6 mg/dL (2.5-4.9); POTASSIUM 3.9 mmol/L (3.5-5.1)
--- NOTE | 2020-03-08 15:30 | NUR ---
ON-GOING ASSESSMENT: CM REVIEWED CHART. PT WAS IN SOFT RESTRAINTS. PT WAS ABLE TO WORK WITH THERAPY TODAY AND THEY ARE POSSIBLY RECOMMENDING POST ACUTE CARE FOR PATIENT. CM REACHED OUT TO PATIENTS AND DISCUSSED POST ACUTE CARE. CM EMAILED A LIST OF SNF OPTIONS THAT ARE IN NETWORK WITH PTS INSURANCE FOR HIS TO START REVIEWING. CM WILL CONTINUE TO FOLLOW TO ASSIST NEEDED.
--- NOTE | 2020-03-08 18:21 | NUR ---
AFIB WITH RVR-140'S, BP STABLE. SCHEDULED COREG ADMINISTERED, WELL TOLERATED. PT GETTING OUT OF CHAIR, THEN RN ASSISTED PT TO BED WITH ONE ASSIST. (USED GAIT BELT AND WALKER). HR REMAINED IN 140'S. DR. LAW PRESENT, NOTIFIED. HE REQUESTED CARDIOLOGY CONSULT. CARDIOLOGY CONSULT CALLED AWAITING RETURN CALL.
[2020-03-09] VITALS (22 sets, daily range): BP systolic 108–139; BP diastolic 44–72
--- NOTE | 2020-03-09 01:30 | NUR ---
CONVERTED TO SINUS RHYTHM RATE 68 WILL CONT TO MONITOR.
--- NOTE | 2020-03-09 06:00 | NUR ---
PT AWAKE PLEASANT. TALKED MOST OF NIGHT. 600 CC UO HAS EXTERNAL CATH ON. BATHED. REMAINS IN SINUS RHYTHM RATE OF 68. LEFT CHEST PPM INTACT. WILL CONT TO MONITOR.
[2020-03-09 06:12] LABS: ALBUMIN 2.4 g/dL (3.4-5.0); CREATININE 1.4 mg/dL (0.7-1.3); PHOSPHORUS 1.9 mg/dL (2.5-4.9); POTASSIUM 3.4 mmol/L (3.5-5.1)
--- NOTE | 2020-03-09 07:05 | NUR ---
DR FISHER HERE. LOPRESSOR 5 MG IV GIVEN CARDIZEM GTT STARTED
--- NOTE | 2020-03-09 15:52 | NUR ---
on-going assessment: CM REVIEWED CHART. PT WAS TACHY OVERNIGHT AND REMAINS IN ICU . PT IS STILL CONFUSED AND IMPULSIVE AT TIMES. PT WAS ABLE TO WORK WITH PT/OT AND STILL RECOMMENDING POST ACUTE CARE. CM LEFT VM WITH PATIENTS TO SEE IF SHE HAD REVIEWED SNF LIST AND SHE WANTED ANY REFERRALS SENT OR TO CHECK BED AVAILABILITY. CM WAS UNABLE TO REACH PATIENTS AND LEFT VM. CM WILL CONTINUE TO FOLLOW TO ASSIST NEEDED.
--- NOTE | 2020-03-09 16:27 | EKG ---
[facility] [place] [address] ELECTROCARDIOGRAM REPORT Name: VIRA NOVAK GARRETT Room #: 245- ADM IN M.R.#: [id number] Admission: 02/26/20 Attend Phys: Vanessa Montgomery MD Discharge: Date of : 39 Report #: [id number] THIS REPORT FOR: cc: Tod Parker MD, Stanley P. MD Lundgren, Craig H. 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1935 Requested By: Misty Camilo Order Number: [id number] MD: Ravin Hickey Measurements Intervals [place] Rate: 68 P: OK: QRS: 68 QRSD: 156 T: -15 QT: 439 QTc: 467 Interpretive Statements Sinus rhythm with first-degree AV block Right bundle branch block Artifact in lead(s) I,II,aVR,V1,V2 Compared to ECG 02/28/2020 10:04:26 Ventricular pacing is no longer present Electronically Signed On 03-09-2020 16:27:06 CDT by Ravin Hickey [email or web address] <ELECTRONICALLY SIGNED> By: Ravin Hickey MD, [facility] 03/09/20 1627 4 Ravin Hickey MD, [facility] /EPI
--- NOTE | 2020-03-09 18:45 | NUR ---
PATIENT REMAINS DELIRIOUS AND IMPULSIVE, HOWEVER IMPROVING FROM YESTERDAY. UP TO CHAIR WITH RT X 4 HOURS, ABLE TO ASSIST WITH SOME SELF CARE. VISITED AND UPDATED ON POC. VSS REMAIN STABLE, PATIENT ON ROOM AIR SPO2 100%, HR 60s, BP 120s/60s.
[2020-03-09 20:23] LABS: HEMATOCRIT 32.4 % (42.0-52.0); HEMOGLOBIN 10.9 gm/dL (14.0-18.0); MCH 27.2 pg (26.0-34.0); MCHC 33.6 g/dL (28.0-37.0); RDW 20.6 % (10.5-14.5); WBC 7.1 thou/uL (4.0-11.0)
[2020-03-09 20:36] LABS: INR 1.1; PROTIME 11.4 Seconds (9.3-11.4)
[2020-03-10] VITALS (13 sets, daily range): BP systolic 111–150; BP diastolic 51–68
[2020-03-10 04:09] LABS: CALCIUM 8.1 mg/dL (8.5-10.1); CREATININE 1.3 mg/dL (0.7-1.3); POTASSIUM 4.2 mmol/L (3.5-5.1)
--- NOTE | 2020-03-10 05:11 | NUR ---
Assumed pt care at 1900. Pt is drowsy and confused. Pt is in restraints. No sign of distress noted in pt. Denies any pain. Fall precaution in place. Heparin drip in place. Vital signs stable. Assessment completed and documented. Scheduled meds administered to pt. No sign of distress noted in pt. Continue to monitor pt. No acute events at this time. No further needs at this time.
--- NOTE | 2020-03-10 08:48 | NUR ---
ON-GOING ASSESSMENT: CM REVIEWED CHART. PT WAS SEEN BY PSYCHIATRIST YESTERDAY. PT REMAINS DELERIUS DUE TO SEPSIS AND REQUIRING RESTRAINTS. CM RECEIVED A REQUEST FROM PATIENTS ASKING IF PATIENT CAN GO TO [facility] ACUTE REHAB AT DISCHARGE. CM DISCUSSED THERE IS CERTAIN CRITERIA THAT HAS TO BE MET AND HE WOULD ALSO HAVE TO GET APPROVED BY HIS INSURANCE. SHE REPORTS THAT HER PREFERENCE IS THAT PATIENT REMAIN AT [facility] AND GO TO [facility]N IF POSSIBLE. CM NOTIFIED ATTENDING WELL LIASON ON 5[facility] TO FOLLOW PATIENT. CM WILL CONTINUE TO FOLLOW TO ASSIST NEEDED.
--- NOTE | 2020-03-10 18:43 | NUR ---
ASSESSMENT CHARTED. PT ALERT AND ORIENTED TO PLACE THIS MORNING. AFTER MORNING MEDS PT BECAME MORE CONFUSED AND HALLUCINATING. DR. CALVO AND DR. ENRIQUEZ NOTIFIED. NEW ORDERS NOTED. UP IN THE CHAIR X3 HOURS THIS AM. ORDERS GIVEN TO TRANSFER PT TO CCU. PRN ATIVAN GIVEN FOR RESTLESSNESS WHICH WAS EFFECTIVE. UPDATED ON PT'S PROGRESS. WILL CONTINUE TO MONITOR.
[2020-03-11 04:00] VITALS: BP 149/56
--- NOTE | 2020-03-11 06:14 | NUR ---
ASSUME CARE 1900. PT/VITALS STABLE. NO PAIN NOTED. MODERATE TOLERANCE TO ACTIVITY. PT FOLLOWS COMMANDS BUT CAN NOT CLEARLY COMMUNICATE NEEDS. A/O TO PERSON ONLY. AFLUTTER NOTED ON MONITOR WITH HR CONTROLLED. ASSESSMENT CHARTED. PROGRESSING SLOWLY WITH POC. PLAN IS TO CONTINUE TO MONITOR LEVEL OF CONSCIOUSNESS AND HEART RHYTHM. WILL CONTINUE TO MONITOR AND FOLLOW WITH POC
[2020-03-11 08:00] VITALS: BP 172/74
--- NOTE | 2020-03-11 10:13 | EKG ---
[facility] [address] [place] [address] ELECTROCARDIOGRAM REPORT Name: VIRA NOVAK GARRETT Room #: 205-P ADM IN M.R.#: [id number] Admission: 02/26/20 Attend Phys: Vanessa Montgomery MD Discharge: Date of : 39 Report #: [id number] THIS REPORT FOR: cc: Tod Parker MD, Stanley P. MD Lammoglia, Francisco J. MD ~ THIS REPORT FOR: //name// 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 : 1935 Requested By: Misty Camilo Order Number: [id number] MD: Jason Faustin Measurements Intervals [place] Rate: 69 P: NV: QRS: -17 QRSD: 145 T: -41 QT: 509 QTc: 546 Interpretive Statements Atrial flutter with predominant 4:1 AV block versus sinus rhythm with a baseline abnormality Right bundle branch block Nonspecific ST-T wave change Baseline wander in lead(s) V1 Compared to ECG 03/09/2020 08:35:18 Sinus rhythm no longer present Electronically Signed On 03-11-2020 10:12:53 CDT by Jason Faustin [email or web address] <ELECTRONICALLY SIGNED> By: Jason Faustin MD 03/11/20 1012 6 6 Jason Faustin MD /EPI
--- NOTE | 2020-03-11 11:07 | NUR ---
08:00-AMBULATED WITH OT TO CHAIR, BED BATH GIVEN, LINENS CHANGED OUT. HE IS VERY CONFUSED THIS AM BUT TOLD THE DOCTOR HE "WANTS TO GO HOME TOMORROW". DENIES ANY PAIN AT PRESENT. PUT A SAFETY BELT AROUND HIM TO ENSURE HE DOES NOT GET UP OUT OF HIS CHAIR. FIGETS ALOT WITH THE PHONE, HIS GLASSES. 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 WILL KEEP HIM IN DIRECT VISION OF NURSE TODAY HE IS OVERALL STILL CONFUSED.
[2020-03-11 11:30] VITALS: BP 131/52
--- NOTE | 2020-03-11 14:49 | NUR ---
Spoke with at bedside. Alerted [facility] is accepting and will seek auth. Discussed skilled as back up plan. tearful and reports she does not want to transfer to skilled. She is aware no visitors and not willing to leave him alone in nursing facility without family visits.
[2020-03-11 16:40] VITALS: BP 140/57
--- NOTE | 2020-03-11 18:32 | NUR ---
12:00- Pt.'s at bedside. trying very hard not to medicate him for any agitation today and sit him up in chair and wear him out and orient him to day shift as much as possible. He is very chatty today and occasionally responds to questins approprtitely. CDiff is pending testing and will treat as positive at this time amd use contact precautions.
--- NOTE | 2020-03-11 18:34 | NUR ---
16:00 Pt. returned to bed from chair. left and he became severly confused and agitated. Ativan given as he was trying to get out of bed repeatedly. order for restraints provided and will place on him as he was attempting ot remove his IV from his neck as well.
--- NOTE | 2020-03-11 18:35 | NUR ---
pt. is finally not trying to get out of bed anymore. resting with eyes closed post Ativan and much more calm and compliant. restraints on bilaterally for safety and prevention of falling as he will get half way down the bed without them. orients to self only now.
[2020-03-11 19:45] VITALS: BP 135/67
--- NOTE | 2020-03-12 03:14 | NUR ---
ALERT,CONFUSED,TRYING TO GET OUT OF BED.ON BILATERAL SOFT WRIST RESTRAINTS.BM X 1.MONITOR SHOWS AFLUTTER WITH OCCASIONAL V PACED RHYTHM.POC CONTINUED.
[2020-03-12 04:23] VITALS: BP 149/71
[2020-03-12 05:23] LABS: HEMATOCRIT 37.7 % (42.0-52.0); HEMOGLOBIN 11.9 gm/dL (14.0-18.0); MCHC 31.7 g/dL (28.0-37.0); MCV 82.1 fL (80.0-100.0); RBC 4.59 mil/uL (4.50-6.00); WBC 8.6 thou/uL (4.0-11.0)
[2020-03-12 08:38] VITALS: BP 168/67
[2020-03-12 12:12] VITALS: BP 144/58
--- NOTE | 2020-03-12 17:34 | NUR ---
ASSUMED CARE OF PT AT SHIFT CHANGE. ASSESSMENTS CHARTED. MEDS GIVEN PER SEP. PT CONFUSED, MUMBLING INCOHERENTLY. FOLLOWS BASICS COMMANDS. DOES NOT REPSOND TO QUESTIONS. PT INCONTINENT. NO BM TODAY. PLAN IS TO HAVE PSYCH ADJUST NEUROLEPTICS. AWAITING AUTH FOR REHAB. WILL CONTINUE TO MONITOR.
[2020-03-12 20:46] VITALS: BP 119/56
[2020-03-13 04:45] VITALS: BP 127/71
--- NOTE | 2020-03-13 08:07 | NUR ---
PATIENT IS PROGRESSING SLOWLY IN HIS CARE PLAN. VITAL SIGNS STABLE THROUGHOUT SHIFT WITH PATIENT HAVING NO COMPLAINTS OF PAIN OR NAUSEA. MOSTLY DISORIENTED TIMES FOUR, PATIENT IS UNABLE TO PARTICIPATE IN CARE OR CALL APPROPRIATELY FOR NEEDS. FREQUENT INCONTINENCE OF BOTH BOWEL AND BLADDER, PATIENT PROVIDED SKIN CARE AND REPOSITIONING OFTEN. SWALLOW PRECAUTIONS PER PROVIDERS ORDER. POSSIBLE DISCHARGE TO REHAB SOON. CONTINUE PLAN OF CARE.
[2020-03-13 08:39] VITALS: BP 156/64
[2020-03-13 11:38] VITALS: BP 138/52
[2020-03-13 12:38] VITALS: BP 137/72
--- NOTE | 2020-03-13 14:54 | NUR ---
ASSUMMED PT CARE AT APPROXIMATELY 0700. PT CONFUSED AND ORIENTED TO SELF. PT DENIES HAVING PAIN. ASSESSMENT CHARTED. FALL PRECAUTIONS IN PLACE. PT FOUND ON GROUND IN ROOM AT APPROXIMATELY 1130. SEE POST FALL INTERVENTION. INFORMED HOUSE SUPERVISON, , AND . ALL STATED UNDERSTANDING. PT IMPULSIVE AND ANXIOUS IN MORNING. PT COMFORTABLE AND SLEEPING IN BED. PT TRANSFERING TO [facility]. REPORT GIVEN TO RN. RN STATED UNDERSTANDING AND DENIED HAVING FURTHER QUESTIONS. VITAL SIGNS STABLE. BLOOD SUGARS STABLE. PT COMFORTABLE IN BED C AT BEDSIDE. PT DENIES HAVING FURTHER CONCERNS.
--- NOTE | 2020-03-13 16:31 | NUR ---
AT APPROXIMATELY 1130, PT FOUND ON GROUND IN ROOM WITH BED ALARM ALARMING. FALL WITNESSED BY EVS. YELLOW FALL WRIST BAND IN PLACE AND YELLOW SOCKS ON. INFORMED DR. CALVO, INTEGRATION PROJECT MANAGER, AND . ALL STATED UNDERSTANDING. NO INJURY NOTED. PT CONFUSED AND ORIENTED TO SELF. VITAL SIGNS STABLE. PT DENIES HAVING PAIN. CONTINUING TO IMPLEMENT FALL PRECAUTIONS.
[2020-03-13 17:02] VITALS: BP 144/58
--- NOTE | 2020-03-13 20:03 | NUR ---
RECEIVED PATIENT LATE IN THE AFTERNOON FROM CCU. PATIENT CONFUSED, LETHARGIC. AT BEDSIDE. ISOLATION ORDERED DUE TO CONTACT. PATIENT IS C. DIFF POSITIVE. VITAL SIGNS STABLE. MEDICATIONS CRUSHED AND GIVEN WITH PUDDING. PT IS ON THE PURRED WITH HONEY THICKENED LIQUIDS. FED THE PATIENT. SCDS ON AND BED ALARM IS SET. POC FOLLOWED, NO SIGNS OF DISTRESS NOTED. ACCUCHECKS DONE, MEDICATIONS GIVEN PER EMAR. ENDORSED THE NIGHT NURSE.
[2020-03-13 23:00] VITALS: BP 150/60
[2020-03-14 08:39] VITALS: BP 128/62
[2020-03-14 15:49] VITALS: BP 130/67
--- NOTE | 2020-03-14 18:45 | NUR ---
PT ASSESSED AT START OF SHIFT. VERY CONFUSED AND WANTING TO GET UP. ATE SM AMT FOR BKFT BUT DID WELL AT LUNCH AND DINNER. SOME COUPHING NOTED AFTER BITES BUT PT TALKING AND SWALLOWING AT THE SAME TIME. HERE MOST OF AFTERNOON. NO BM ALL SHIFT. INCONTINENT OF LARGE AMTS OF URINE.
[2020-03-14 20:17] VITALS: BP 150/51
--- NOTE | 2020-03-14 22:14 | NUR ---
PATIENT RESTLESS AT SHIFT CHANGE. AM BLOCKING MACHINE OPERATOR SECOND CHANGING PATIENT FROM BM. AT BEDSIDE AT BEGINNING OF SHIFT AND SPOKE WITH BOTH THIS NURSE AND AM NURSE REGARDING HIS CHANGE IN MENTAL STATUS. PATIENT ATTEMPTED TO GET OOB X3. GIVEN PRN ATIVAN AND LATER NIGHT MEDICATIONS. THIS NURSE CHANGED X1 FOR URINE SO FAR TONIGHT. MIXED CRUSHED MEDS WITH APPLESAUCE AND PATIENT SWALLOWED W/O COMPLICATION. RESTING AT TIME OF NOTE. WILL MONITOR.
[2020-03-15 05:29] LABS: HEMATOCRIT 34.9 % (42.0-52.0); HEMOGLOBIN 11.1 gm/dL (14.0-18.0); MCH 26.6 pg (26.0-34.0); MCHC 31.9 g/dL (28.0-37.0); MCV 83.3 fL (80.0-100.0); RBC 4.19 mil/uL (4.50-6.00); RDW 20.7 % (10.5-14.5); WBC 7.2 thou/uL (4.0-11.0)
[2020-03-15 05:43] LABS: CALCIUM 8.2 mg/dL (8.5-10.1); CREATININE 1.2 mg/dL (0.7-1.3); POTASSIUM 3.1 mmol/L (3.5-5.1)
[2020-03-15 07:39] VITALS: BP 148/73
[2020-03-15 16:15] VITALS: BP 113/80
[2020-03-15 19:32] VITALS: BP 126/58
--- NOTE | 2020-03-15 19:59 | NUR ---
Assessment completed.vss.Pt in bed most of the time today sleeping on and off. Account Support Associate fed pt at breakfast. Meds given and well tolerated. here most of the time from noon to 1900 assisting with care.Pt was confused and agitated around 1800 but rn reoriented pt and was later calm and ate some of his dinner.Pt wet bed pad and was changed twice.No soa or difficulty swallowing noted.Pt in bed resting at present. Will continue to monitor.
[2020-03-16 07:23] VITALS: BP 153/66
--- NOTE | 2020-03-16 08:44 | NUR ---
RECEIVED CALL THIS DATE FROM [facility]. PATIENT HAS BEEN DENIED FOR ACUTE REHAB. PATIENT'S LEVEL OF CONFUSION WAS FACTOR FOR DENIAL. PEER TO PEER CAN BE COMPLETED BY CALLING , OPTION #4. THIS MUST BE SCHEDULED BY THIS DATE AT 4:30. OR NEW AUTH REQUEST CAN BE SUBMITTED IF PATIENT BECOMES MORE APPROPRIATE FOR REHAB LATER IN HOSPITAL STAY. SUGAR CANE GROWER INFORMED. THANK YOU FOR THIS REFERRAL.
--- NOTE | 2020-03-16 12:11 | NUR ---
CM NOTIFIED THIS AM BYT [facility] LIAISON THAT THEY HAD SUBMITTED FOR AUTH ON PT LAST WEEK AND HAD RECEIVED A DENIAL FOR ACUTE REAHB. SHE INDICATED THAT INSURANCE INDICATED THAT THEY LIKELY WOULDN'T AUTH SKILLED AT THIS TIME EITHER PT DOESN'T SEEM MEDICALLY STABLE FOR DC AT THIS TIME. PT WAS TAKEN OUT OF SOFT RESTRAINTS THIS AM. PHYSICIAN WOULD LIKE [facility] TO FOLLOW ASSESS FOR POSSIBLE ADMISSION THE END OF THIS WEEK BASED ON PROGRESS. PT'S SPOUSE'S PREFERENCE IS FOR [facility] WELL. CM TO NOTIFY HER OF THE ABOVE AND ASK THAT SHE HAVE A SKILLED ALTERNATIVE. CM TO FOLLOW INDICATED WITH DC PLANNING.
--- NOTE | 2020-03-16 12:44 | NUR ---
I have reviewed the student's documentation.
[2020-03-16 15:16] VITALS: BP 144/50
[2020-03-16 18:47] VITALS: BP 163/49
--- NOTE | 2020-03-16 19:22 | NUR ---
Assumed pt care this am, confused and could be impulsive at times. Hallucinations present through out the day, would have conversations with himself when asked he mentioned his friends are in the room. Isolation maintauined for C-diff, 1 bm noted this am soft and formed. Diet is madications are well tolerated, pt is a set up but needs to be supervised for meals. was at the bedside in the pm, requesting for glutathione to be given, I requested for dose to be called in will call tomorrow with the information. Incontinent of both bowel and baldder. POC followed with no signs or verbalizatiosn of distress. Wound care done on the sacrum, endorsed to the night nurse.
--- NOTE | 2020-03-17 02:14 | NUR ---
ASSUMED PT CARE AT 1900. PT'S IS AT BEDSIDE AT THE BEGINING OF THE SHIFT. PT IS ALERT TO SELF AND CONFUSED. IV IS IN HISLEFT FOREARM. PT TALKS BUT HE IS NOT PUTTING TOGETHER COHERENT SENTENCES. PT TAKES MEDICATION CHRUSHED. I ENCOURAGED HIM TO DRINK FLUIDS. PT IS LAYING IN THE BED AND DOESN'T SHOW ANY SIGNS OF PAIN OR DISTRESS. WILL CONTINUE TO MONITOR.
[2020-03-17 08:03] VITALS: BP 130/60
--- NOTE | 2020-03-17 18:46 | NUR ---
PT IS AOX1, VSS, FALL PRECAUTIONS IN PLACE. NO S/S OF PAIN. WILL CONTINUE TO MONITOR.
[2020-03-17] MEDS ORDERED: NF PO (19:10)
[2020-03-17 20:15] VITALS: BP 134/69
--- NOTE | 2020-03-18 03:53 | NUR ---
ASSUMED CARE OF PT AT 1900HRS. PT AOX1 AND NEEDS MUST BE ANTICIPATED. FALL PRECAUTION IN PLACE. ASSESSMENT CHARTED. PT IS CONFUSED AND CAN BE IMPULSIVE. PACEMAKER SITE IS C/D/I. NO S/S OF ACUTE DISTRESS. WILL CONTINUE TO MONITOR.
[2020-03-18 07:32] LABS: ALBUMIN 2.7 g/dL (3.4-5.0); CALCIUM 8.6 mg/dL (8.5-10.1); CREATININE 1.4 mg/dL (0.7-1.3); POTASSIUM 3.6 mmol/L (3.5-5.1); TOTAL BILIRUBIN 1.6 mg/dL (0.2-1.0); TOTAL PROTEIN 6.5 g/dL (6.4-8.2)
[2020-03-18 08:14] VITALS: BP 152/69
--- NOTE | 2020-03-18 14:26 | NUR ---
CARE TEAM INDICATED THAT PT WILL BE MEDICALLY STABLE TO DISCHARGE TOMORROW TO [facility] IF INSURANCE AUTHORIZES OR TO A SKILLED REHAB FACILITY. CM HAD EMAILED PT'S SPOUSE SHE IS LOOKING AT SKILLED FACILITIES SHE WOULD LIKE REFERRALS SENT TO IN THE EVENT [employer] DENIES ACUTE REHAB AGAIN. CM TO FOLLOW INDICATED WITH DC PLANNING.
[2020-03-18 15:37] VITALS: BP 134/61
[2020-03-18 17:04] VITALS: BP 137/68
--- NOTE | 2020-03-18 18:09 | NUR ---
PT IS AOX1, VSS, NO S/S OF DISTRESS AT THIS TIME. PT HAD MULTIPLE LIQUID BM'S. PT REMAINS ON ISOLATION PRECAUTIONS FOR C-DIFF. FALL PRECAUTIONS IN PLACE. WILL CONTINUE TO MONITOR FOR SAFETY.
[2020-03-18 20:40] VITALS: BP 128/98
--- NOTE | 2020-03-19 02:36 | NUR ---
ASSUMED PT CARE AT 1915. PT'S IS AT THE BEDSIDE. PT IS ALERT TO SELF. PT IS INCONTINENT. AFTER SEVERAL ATTEMPTS PT IS COMBATIVE AND REFUSES TO TAKE HIS ORAL EVENING MEDICATION. I WAS ABLE TO ADMINITER THE HEPARIN. PT TOLD ME TO STOP TOUCHING HIM AND TO GET OUT OF HIS ROOM. I WAS ABLE TO ADMINISTER THE VANCOMYCIN. PT IS ASLEEP IN HIS ROOM WITH BED ALARM ON, CALL IGHT IN REACH. WILL CONTINUE TO MONITOR.
[2020-03-19 07:50] VITALS: BP 136/61
[2020-03-19 10:23] LABS: URINE BILIRUBIN NEGATIVE (Negative); URINE BLOOD NEGATIVE (Negative); URINE CLARITY CLEAR; URINE COLOR YELLOW; URINE GLUCOSE-RANDOM* NEGATIVE (Negative); URINE KETONES NEGATIVE (Negative); URINE LEUKOCYTES NEGATIVE (Negative); URINE NITRITE NEGATIVE (Negative); URINE PROTEIN (DIPSTICK) TRACE (Negative); URINE SPECIFIC GRAVITY 1.025 (1.005-1.035); URINE UROBILINOGEN 0.2 E.U./dl (0.2-1.0)
--- NOTE | 2020-03-19 14:36 | NUR ---
[facility] STOVE POLISHER SAW PT AGAIN THIS DAY INDICATED THAT PT WAS DOING BETTER AND INDICATD THAT SHE WOULD DOCUMENT SUCH AND HAVE IT SUBMITTED TO INSURNACE. STILL AWAITING [employer] AUTH FOR 5N. SPOUSE AND SISTER IN LAW INDICATED THAT THEY WANTED REFERRALS SENT TO [facility], [facility] AND [facility]. [facility] DECLINED DUE TO BEHAVIORS. STILL AWAITING AUTH FOR 5[facility]. CM NOTIFIED PHYSICIAN THAT KRISS Castillo LIAISON IS HERE AND WILL CHECK RELATED TO AUTH TOMORROW BUT THAT DETERMINATION LIKELY WOULDN'T BE MADE OVER WEEKEND. CM TO FOLLOW INDICATED WITH DC PLANNING.
--- NOTE | 2020-03-19 15:46 | NUR ---
FAXED REFERRAL TO [facility] SPOKE WITH MEHUL IN ADM SHE DENIED REFERRAL DUE TO PT'S BEHAVIORS. FAXED REFERRAL TO [facility] RECEIVED CONFIRMATION AND LEFT MSG WITH JADEN IN ADM. [facility]ED [facility]ERRAL TO [facility] RECEIVED CONFIRMATION AND LEFT MSG WITH ADM. WILL F/U WITH FACILITY ON SUNDAY.
--- NOTE | 2020-03-19 16:57 | NUR ---
NEW AUTHORIZATION REQUESTED FOR ACUTE REHAB STAY ON 03/17/20. FURTHER INFORMATION WAS REQUESTED FROM INSURANCE THIS DATE AND INFORMATION SENT. BATTERY TESTER FIELD SPOKE WITH BALE TIE MACHINE OPERATOR AT 1655. NO DECISION YET FROM RUNNING SPECIALIST. BALE TIE MACHINE OPERATOR GIVEN REHAB CELL PHONE NUMBER AND WEEKEND WIND TURBINE TECHNICIAN FOR INSURANCE EXPECTED TO CALL ON 03/20/20 WITH DECISION REGARDING AUTHORIZATION.
[2020-03-19 19:38] VITALS: BP 120/63
--- NOTE | 2020-03-19 19:46 | NUR ---
ASSUMED CARE AT CHANGE OF SHIFT. ALERT TO SELF. HAS MOMENTS OF CLARITY. ONE TIME IMPULSIVE. 2 SEMI FORMED STOOL. ATE GREATER THEN 40% OF EACH MEAL. TOLERATING PUREED/HONEY THICK DIET. COMPLIANT WITH CRUSHED MEDS. POSSIBLE DC TO SKILLED CARE OR [facility]. FALL PRECATIONS IN PLACE. BED ALARM SET. CLOSE TO NURSES STATION FOR OVERSIGHT. PERSONAL ITEMS IN REACH. UNABLE TO DEMONSTRATE CALL LIGHT.
[2020-03-19 23:25] VITALS: BP 135/59
[2020-03-19 23:26] VITALS: BP 135/59
[2020-03-20 00:14] VITALS: BP 126/57
[2020-03-20 00:25] VITALS: BP 126/57
--- NOTE | 2020-03-20 02:57 | NUR ---
PT IS ALERT TO SELF AND IS VERY CONFUSED. PT BECOMES AGITATED WHEN I TRIED TO GIVE HIM HIS ORAL NIGHT MEDS. AFTER ABOUT 20 MINUTES I PERSUADED HIM TO TAKE HIS MEDICATION. IV IS IN HIS LEFT FOREARM. BLOOD SUGAR IS 128. PT IS BEDREST, MODERATE ASSIST WHEN UP. NO NEED FOR INSULIN. PT HAD A BM AND IS INCONTINENT. PT IS UNAWARE OF HIS LIMITATIONS. THE PT HAD A FALL AT 2325. THE FALL WAS WITNESSED BY THE DRYLAND FARMER (CARROLL) AND THE CHARGE NURSE (VERNON). THE FALL WAS ASSISTED. PT'S HEAD AND TORSO WAS SAFE AND DID NOT HIT ANYTHING. PT WAS CONFUSED AND SAID HE WAS GOING TO THE RESTROOM, IN REALITY HE WAS GOING TOWARDS THE WINDOW AND GRABBED THE TABLE. THE PT SUSTAINED A SKIN TEAR ON THE PALM OF HIS RIGHT HAND. NURSE PRACTITIONER AND BI MANAGER. WAS NOTIFIED, LEFT A VOICEMAIL ON THE PT'S 'S PHONE. A PICTURE HAS BEEN TAKEN AND PUT IN THE CHART. WILL CONTINUE TO MONITOR.
[2020-03-20 05:45] LABS: HEMOGLOBIN 11.1 gm/dL (14.0-18.0); MCH 26.9 pg (26.0-34.0); MCHC 31.6 g/dL (28.0-37.0); RBC 4.11 mil/uL (4.50-6.00); RDW 21.4 % (10.5-14.5); WBC 6.7 thou/uL (4.0-11.0)
[2020-03-20 06:05] LABS: CALCIUM 8.5 mg/dL (8.5-10.1); CREATININE 1.3 mg/dL (0.7-1.3); MAGNESIUM 2.2 mg/dL (1.8-2.4); POTASSIUM 3.4 mmol/L (3.5-5.1)
[2020-03-20 09:58] VITALS: BP 110/64
--- NOTE | 2020-03-20 16:02 | NUR ---
Received awake on bed. Due medications given as prescribed, crushed and mixed with pudding; aspiration precaution observed. A to self- re-oriented from time to time; assisted in ADLs. Vital signs stable. On room air. On MS, not on telemetry; no signs of chest pain, crushing sensation and heaviness.Incontinent of bowel and bladder, checked frequently and changed as needed. On pureed diet + honey thick fluids- assisted and encouraged in eating and drinking; no nausea, no vomiting and no abdominal pain noted. With SL at L FA- intact and wrapped in coban. With skin tear at R hand from fall last night. With blister at R sacrum- dressing to be changed and photo to be taken. Maintained on isolation due to C.diff. Visited by relative today- update given. To continue monitoring patient. Rehab liaportia Albarado called and said the pt has insurance approval for [facility]- relative updated. Report given to Verena. A/w discharge orders from Dr Chaves- pt's relative aware.
[2020-03-20 16:20] VITALS: BP 123/60
[2020-03-20] MEDS ORDERED: PEPCID20 MG PO (16:38)
[2020-03-20] MEDS ORDERED: ACEROLA C500 MG PO (16:38)
[2020-03-20] MEDS ORDERED: CARDIZEM CD 18180 M3 PO (16:38)
[2020-03-20] MEDS ORDERED: ACETAMINOPHEN325 M1 PO (16:38)
[2020-03-20] MEDS ORDERED: CEPACOL SORE T1 EAC7 PO (16:38)
[2020-03-20] MEDS ORDERED: CARVEDILOL25 MG PO (16:38)
[2020-03-20] MEDS ORDERED: A THRU Z ADVAN1 EAC1 PO (16:38)
[2020-03-20] MEDS ORDERED: DEPAKOTE 250MG250 M1 PO (16:38)
[2020-03-20] MEDS ORDERED: IPRAT-ALBUT 0.5-3 ML INH (16:38)
[2020-03-20] MEDS ORDERED: ZYPREXA 5 MG TAB5 M1 PO ×2 (16:38)
[2020-03-20] MEDS ORDERED: LISINOPRIL10 MG PO (16:38)
[2020-03-20] MEDS ORDERED: OLANZAPINE2.5 MG PO (16:38)
[2020-03-20] MEDS ORDERED: HUMALOG100 UNIT/1 SUBQ (16:38)
[2020-03-20] MEDS ORDERED: ENOXAPARIN30 MG/0.3 SUBQ (16:38)
[2020-03-20] MEDS ORDERED: GLUCAGEN1 MG/1 ML IM (16:38)
[2020-03-20] MEDS ORDERED: AKWA TEARS OIN3.5 GM OPHTHALMIC (16:38)
[2020-03-20] MEDS ORDERED: LORAZEPAM 0.50.5 MG PO (16:38)
[2020-03-20 17:06] VITALS: BP 110/64
[2020-03-20 17:59] VITALS: BP 123/40
--- NOTE | 2020-03-29 14:08 | P ---
[facility] [place] [address] PROCEDURE REPORT Name: VIRA NOVAK Room #: 462-P [facility] IN M.R.#: [id number] Admission: 02/26/20 Attend Phys: Vanessa Montgomery MD Discharge: 03/20/20 Date of : 39 Report #: [id number] THIS REPORT FOR: cc: Tod Parker MD, Stanley P. MD Couchonnal, Luis F. MD ~ CC: Vanessa Molinagina Mina Tod Parker DATE OF SERVICE: 02/27/2020 PROCEDURE: Dual chamber pacemaker implantation PREOPERATIVE DIAGNOSIS: Heart block. POSTOPERATIVE DIAGNOSIS: Heart block. HISTORY: The patient is an 84-year-old with history of heart block, here for pacemaker implantation. ANESTHESIA: The patient underwent MAC anesthesia with no anesthesia related complications. DESCRIPTION OF PROCEDURE: The patient underwent informed consent. He was prepped and draped in a sterile fashion. He underwent a venogram, received IV antibiotics. Next, I injected lidocaine at the incision site. Incision was made, pocket was created over the prepectoral fascia. Access obtained twice to the left axillary vein using the extrathoracic approach through the sheath positioned using the modified Seldinger technique. Next, under fluoroscopy, a lead was positioned in the right ventricular apex and right atrial appendage, both with adequate pacing and sensing thresholds. The leads were sutured to the prepectoral fascia, connected to the device. Tug tests were performed. The pocket was irrigated with vancomycin and closed in two layers. Surgical glue was placed in the outer skin layer. The patient awoke neurologically and hemodynamically intact. No complications. No significant bleeding. Implanted pacemaker and leads were Medtronic device. The device was a model #W3DR01, serial #[id number]. Atrial lead was a 5076, serial #[id number] and the RV lead was a model #5076, serial #[id number]. Atrial lead demonstrated P-wave of 1 millivolt, pacing impedance 437 ohms, pacing threshold 0.4 volts at 0.4 milliseconds. RV lead demonstrated R-wave 8 millivolts, pacing impedance 722 ohms, pacing threshold 0.5 volts at 0.4 milliseconds. The device was programmed to the DDDR 60/130. CONCLUSION: [facility] [address] [place] [address] PROCEDURE REPORT Name: VIRA NOVAK [place] Room #: 462-P [facility] IN .R.#: [id number] Admission: 02/26/20 Attend Phys: Vanessa Montgomery MD Discharge: 03/20/20 Date of : 39 Report #: [id number] 1. Successful dual chamber pacemaker implantation. 2. Satisfactory atrial and ventricular pacing and sensing thresholds. <ELECTRONICALLY SIGNED> By: Crow Batres MD 03/29/20 1408 0820 0845 Crow Batres MD /dae
== END 2020-03-20 18:23 | DRG 853 ==
LOC: ER 15:33 → EROBS 17:17 → 2N 17:17 → 4W 17:17 → ICU 17:17 → EROBS 18:09 → 2N 19:47 → ICU 02-28 11:39 → 2N 03-10 16:01 → 4W 03-13 15:48
PROVIDERS: Emergency Medicine; Hospitalist; Internal Medicine; Internal Medicine Cardiovascular Disease; Internal Medicine Nephrology; Internal Medicine Pulmonary Disease; Nurse Practitioner; Nurse Practitioner Acute Care; Nurse Practitioner Adult Health; Nurse Practitioner Family; Pediatrics; Psychiatry & Neurology Psychiatry; ADMIT Hospitalist; ATTEND Hospitalist
PROC: 02H63JZ Insertion of Pacemaker Lead into Right Atrium, Percutaneous Approach (ICD-10-PCS; 2020-02-27)
PROC: 02HK3JZ Insertion of Pacemaker Lead into Right Ventricle, Percutaneous Approach (ICD-10-PCS; 2020-02-27)
PROC: 0JH606Z Insertion of Pacemaker, Dual Chamber into Chest Subcutaneous Tissue and Fascia, Open Approach (ICD-10-PCS; 2020-02-27)
PROC: 5A1955Z Respiratory Ventilation, Greater than 96 Consecutive Hours (ICD-10-PCS; 2020-02-28)
PROC: 0BH17EZ Insertion of Endotracheal Airway into Trachea, Via Natural or Artificial Opening (ICD-10-PCS; 2020-02-28)
PROC: 4B02XSZ Measurement of Cardiac Pacemaker, External Approach (ICD-10-PCS; principal; 2020-03-01)
PROC: 0B9C8ZX Drainage of Right Upper Lung Lobe, Via Natural or Artificial Opening Endoscopic, Diagnostic (ICD-10-PCS; 2020-03-03)
PROC: 5A09357 Assistance with Respiratory Ventilation, Less than 24 Consecutive Hours, Continuous Positive Airway Pressure (ICD-10-PCS; 2020-03-03)
DX: A41.9 Sepsis, unspecified organism (principal); J96.01 Acute respiratory failure with hypoxia; G92 Toxic encephalopathy; E43 Unspecified severe protein-calorie malnutrition; J69.0 Pneumonitis due to inhalation of food and vomit; N17.9 Acute kidney failure, unspecified; I50.20 Unspecified systolic (congestive) heart failure; E87.0 Hyperosmolality and hypernatremia; E87.1 Hypo-osmolality and hyponatremia; I82.611 Acute embolism and thrombosis of superficial veins of right upper extremity; A04.72 Enterocolitis due to Clostridium difficile, not specified as recurrent; G72.81 Critical illness myopathy; I44.2 Atrioventricular block, complete; I13.0 Hypertensive heart and chronic kidney disease with heart failure and stage 1 through stage 4 chronic kidney disease, or unspecified chronic kidney disease; I44.1 Atrioventricular block, second degree; I45.9 Conduction disorder, unspecified; Z20.828 Contact with and (suspected) exposure to other viral communicable diseases; I25.5 Ischemic cardiomyopathy; E78.00 Pure hypercholesterolemia, unspecified; I25.10 Atherosclerotic heart disease of native coronary artery without angina pectoris; D69.6 Thrombocytopenia, unspecified; E11.22 Type 2 diabetes mellitus with diabetic chronic kidney disease; E87.5 Hyperkalemia; I95.9 Hypotension, unspecified; R65.20 Severe sepsis without septic shock; N18.3 Chronic kidney disease, stage 3 (moderate); E87.8 Other disorders of electrolyte and fluid balance, not elsewhere classified; I80.9 Phlebitis and thrombophlebitis of unspecified site; R41.0 Disorientation, unspecified; I48.0 Paroxysmal atrial fibrillation; Z88.8 Allergy status to other drugs, medicaments and biological substances; Z82.49 Family history of ischemic heart disease and other diseases of the circulatory system; Z87.891 Personal history of nicotine dependence; Z98.49 Cataract extraction status, unspecified eye; Z79.82 Long term (current) use of aspirin; Z79.899 Other long term (current) drug therapy
CPT/HCPCS: 10047; 10078; 10081; 62110; 62900

== ENCOUNTER 2020-03-20 14:16 | Inpatient (IN) | payer OTHER, MEDICAID ==
[~2020-03-20] VITALS: Ht 175.3 cm; Wt 62.6 kg
[~2020-03-20 14:16] MED LIST changes: +DESYREL150 MG PO; +KETOROLAC TROMET5 M1 EA. EYE; +LOPRESSOR50 PO; +MELOXICAM15 MG PO; +METFORMIN HCL500 M3 PO; +MIRTAZAPINE7.5 MG PO; +NF PO; +OFLOXACIN5 ML OPHTHALMIC; +PRED FORTE 1% EY5 M1 OPHTHALMIC; +PROTONIX40 M4 PO; +VITAMIN B-121000 MC2 PO; +VITAMIN D310 MC4 PO
[2020-03-20] MEDS ORDERED: CARDIZEM CD 18180 M3 PO (16:38)
[2020-03-20] MEDS ORDERED: ACEROLA C500 MG PO (16:38)
[2020-03-20] MEDS ORDERED: HUMALOG100 UNIT/1 SUBQ (16:38)
[2020-03-20] MEDS ORDERED: PEPCID20 MG PO (16:38)
[2020-03-20] MEDS ORDERED: CARVEDILOL25 MG PO (16:38)
[2020-03-20] MEDS ORDERED: IPRAT-ALBUT 0.5-3 ML INH (16:38)
[2020-03-20] MEDS ORDERED: ZYPREXA 5 MG TAB5 M1 PO ×2 (16:38)
[2020-03-20] MEDS ORDERED: LORAZEPAM 0.50.5 MG PO (16:38)
[2020-03-20] MEDS ORDERED: CEPACOL SORE T1 EAC7 PO (16:38)
[2020-03-20] MEDS ORDERED: GLUCAGEN1 MG/1 ML IM (16:38)
[2020-03-20] MEDS ORDERED: OLANZAPINE2.5 MG PO (16:38)
[2020-03-20] MEDS ORDERED: AKWA TEARS OIN3.5 GM OPHTHALMIC (16:38)
[2020-03-20] MEDS ORDERED: A THRU Z ADVAN1 EAC1 PO (16:38)
[2020-03-20] MEDS ORDERED: DEPAKOTE 250MG250 M1 PO (16:38)
[2020-03-20] MEDS ORDERED: LISINOPRIL10 MG PO (16:38)
[2020-03-20] MEDS ORDERED: ACETAMINOPHEN325 M1 PO (16:38)
[2020-03-20] MEDS ORDERED: ENOXAPARIN30 MG/0.3 SUBQ (16:38)
[2020-03-20 18:45] VITALS: BP 130/53
--- NOTE | 2020-03-20 18:54 | NUR ---
ASSUMED CARE AT 1840. PT IS BROUGHT IN BY BED ACCOMPANIED BY 3 HOSPITAL PERSONNEL AND PT'S SPOUSE. PT IS ALERT AND ORIENTATED TO PLACE, TIME AND YEAR. VOICE IS RASPY AND DENIES ANY PAIN OR DISCOMFORT. PLACED IN ISOLATION FOR CDIFF. LAST BM WAS ON 03/20 LARGE AND SOFT. ON VANCOMYCIN. CONCERNED ABOUT PT CONDITION SINCE WAS RELEASED FROM ICU. HE APPEARS WEAK AND CONFUSED AND OCCASIONALLY IMPULSIVE. SHE IS HOPING HE WILL PROGRESS AND BE ABLE TO BE MORE INDEPENDENT WITH MOBILITY, SELF CARE, AND SAFETY AWARENESS. WILL CONT TO MONITOR AND WILL PASS REPORT TO NIGHT RN.
--- NOTE | 2020-03-20 19:11 | NUR ---
0640 PATIENT ADMITTED TO ROOM 506. PATIENT KEITH'S, PATIENT IS CONFUSED AND SPEECH IS GARBLED. ANSWERED QUESTIONS FOR ASSESSMENT. PATIENT GETS AGITATED EASILY. PATIENT HAD FALL THIS A.M. LUNGS ARE CLEAR AND DEMINISHED. ABD IS SOFT WITH BSX4. GUEST SERVICES ARE EQUAL. IN BED WITH SR UP X4. BED ALARM ON. FALL AND SAFETY PROTOCOLS IN PLACE. DENIES PAIN AT THIS TIME. PLAN EVALS FOR PT/OT/ST SUN/MON. PATIENT HAS S.L. IN HIS LEFT HAND. IV SITE WITHOUT REDNESS OR SWELLING. WILL CONTINUE TO MONITER.
--- NOTE | 2020-03-21 03:12 | NUR ---
PT LYING IN BED. DENIES PAIN. INCONTINENT. RESTING COMFORTABLY. NO NEEDS VOICED. CALL LIGHT WITHIN REACH. FREQUENT OBSERVATION.
[2020-03-21 06:00] LABS: HEMATOCRIT 30.7 % (42.0-52.0); HEMOGLOBIN 9.9 gm/dL (14.0-18.0); MCH 26.7 pg (26.0-34.0); MCHC 32.2 g/dL (28.0-37.0); RBC 3.69 mil/uL (4.50-6.00); RDW 21.6 % (10.5-14.5); WBC 5.2 thou/uL (4.0-11.0)
[2020-03-21 06:20] LABS: CALCIUM 8.1 mg/dL (8.5-10.1); CREATININE 1.5 mg/dL (0.7-1.3)
--- NOTE | 2020-03-21 16:20 | NUR ---
PT A&O TO SELF AND PLACE. UP WITH ASSIST X 2. INCONT OF B/B. BUTTOCKS ARE RED, BARRIER OINTMENT APPLIED. PT WAS FEEDING SELF AT NOON, PUREED DIET WITH HONEY THICK LIQUIDS. CALL LIGHT W/I REACH BED/CHAIR ALARM ON AT ALL TIMES.
[2020-03-21 19:17] VITALS: BP 115/44
--- NOTE | 2020-03-22 03:09 | NUR ---
assumed care approx 1900 evening 03/21. pt lying in bed with head of bed elevated at change of shift. pt awake, pleasant and cooperative, somewhat forgetful and needing reminders and ques at times. pt took hs meds crushed with applesauce tolerating well. pt appears to be sleeping soundly with hourly rounding checks. bed alarm on and call light in reach. will continue to monitor.
[2020-03-22 07:46] VITALS: BP 141/59
--- NOTE | 2020-03-22 09:00 | NUR ---
ASSUMED CARE AT 0700. PT IS AWAKE, ALERT AND ORIENTATED TO SELF AND PLACE. LYING IN BED, DENIES ANY PAIN. HAD A LARGE SOFT STOOL TODAY WITH PT AND HIS SACRAL WOUND DRESSING CHANGED. PT IS UP WITH ASSIST X 1 WITH GAIT BELT AND WALKER AND WALKED TO THE DINING AND ATE 100% OF HIS BREAKFAST. ST AT BEDSIDE AND PT WAS ABLE TO TAKE HIS MEDS WHOLE WITH APPLE SAUCE BUT STRUGGLE AT TIMES. PT HAD SWALLOW STUDY DONE AND ASPIRATED ON THIN LIQUID AND DID FINE WITH NECTAR THICK. ST WANTS TO CONT WITH MEDS CRUSHED IN APPLE SAUCE FOR NOW. PT COMPLAINED OF LOWER BACK PAIN AT 8/10 AND MEDICATED WITH TYLENOL. PT IS PARTICIPATING WITH THERAPY. NO SIGNS OF IMPULSIVE. PROGRESSING SLOWLY. WILL CONT TO MONITOR.
--- NOTE | 2020-03-22 16:10 | NUR ---
chart review. cm tried visiting anali x 2 and working with therapy. cm called pt room and spoke with him via phone call. he is a & o x 3 with confusion and is pleasant. he reported live at [facility]. going for surgery this morning before was independent. 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 manage own medication and drive per pt. rosie spoke with ryan, yes live in apartment, not [facility] apartment. he was completely independent prior to pacemaker and then having to be on vent. his mind. he manage own medication but i will check box that he been taking his medicaine. he does still drive. no hh or rehab in the past per . will cont following as needed for dc needs.
[2020-03-22 19:35] VITALS: BP 136/53
--- NOTE | 2020-03-23 04:38 | NUR ---
assumed care approx 1899 evening 03/22. pt sitting up in recliner at change of shift. pt very impulsive and found up from chair and roaming around his room approx 1999. assisted pt into gown and into bed. pt confused and forgetful oriented x1 however pleasant and cooperative. pt took hs meds crushed with applesauce. pt with stool and voiding per urinal and incontinent at times of bowel and bladder. pt presently asleep, bed alarm on and call light in reACH. will continue to monitor.
[2020-03-23 06:09] LABS: ABSOLUTE NEUTROPHILS 3.5 thou/uL (1.4-8.2); EOSINOPHILS 4.8 % (0.0-3.0); HEMOGLOBIN 9.3 gm/dL (14.0-18.0); LYMPHOCYTES 16.8 % (24.0-44.0); MCH 26.8 pg (26.0-34.0); MCHC 32.1 g/dL (28.0-37.0); MCV 83.6 fL (80.0-100.0); PLATELET COUNT 220 thou/uL (150-400); POLYS 70.4 % (36.0-66.0); RBC 3.47 mil/uL (4.50-6.00); RDW 21.4 % (10.5-14.5)
[2020-03-23 06:18] LABS: CALCIUM 7.8 mg/dL (8.5-10.1); CREATININE 1.3 mg/dL (0.7-1.3); MAGNESIUM 2.1 mg/dL (1.8-2.4); POTASSIUM 3.2 mmol/L (3.5-5.1)
[2020-03-23 08:00] VITALS: BP 149/65
[2020-03-23 08:30] VITALS: BP 149/62
--- NOTE | 2020-03-23 08:30 | NUR ---
ASSUMED CARE AT 0700. PT HAS BEEN UP AND BED ALARM WAS ALARMING FREQUENTLY LAST NIGHT. THIS MORNING PT WAS HELPED BY THERAPY TO THE BATHROOM AND SAT ON HIS CHAIR WITH ALARM ON AND CALL LIGHT WITHIN REACH. PT WAS ASSESSED AND MEDS GIVEN. CURT WITH WOUND SAW PT AND PERFORM WOUND CARE AT 0910. PT COMPLAINED OF NECK PAIN AND REPORTED TO KUN CAR AND TYLENOL GIVEN FOR PAIN RELIEF. PT ATE WELL AND ATE IN HIS ROOM WITH SUPERVISION. CALLED TO INFORM THIS RN, PT NEEDS HIS GLUATHTIONE FOR HIS COGNITION IMPAIRMENT AND MEDS VERIFIED BY PHARMACIST. CALL LIGHT WITHIN REACH AND CHAIR ALARM ON. CONT TO MONITOR.
--- NOTE | 2020-03-23 09:41 | NUR ---
WOUND CARE NOTE; ASSESSED COCCYX/SACRAL AREA W/ BAKERY CLERK GOPAL, PT ALERT, COOPERATIVE, SITTING UP IN CHAIR, STAGE 2 PRESSURE INJURY COCCYX AREA, NO DRAINAGE NOTE, INCONT STOOL AT URINE AT TIMES, NO S/S INFECTION, WILL ORDER LOW AIR LOSS PUMP FOR BED RECOMMENDATIONS; ZGUARD TO COCCYX/SACRAL AREA, DAILY AND PRN, COVER W/ BORDER FOAM DRSG, LOW AIR LOSS PUMP TO BED, ENCOURAGE TO NOT SIT LONG PERIODS, WHEN IN BED TURN [id number] MINIMAL, PRESSURE RELIEF, OFF LOADING BAKERY CLERK AWARE
[2020-03-23 09:45] VITALS: BP 149/62
--- NOTE | 2020-03-23 09:45 | NUR ---
cm up on unite this am, cm walked around side of nursing station and saw anali sitting on floor in rehab gym. alarm going off in pt room. he did not have his walker either. he was sitting up with legs straight up, he looking for his grandson. cm, pt, and psychiatric np assist anali up into recliner chair. going to have xrays today rt un clearly voiced complaints, vs taken and giving to bedside nurse. unite going to try get him room closer to nursing station rt his impulsivity. will cont following as needed for dc needs.
--- NOTE | 2020-03-23 10:00 | NUR ---
THIS RN WAS INFORMED THAT PT WAS FOUND ON THE THERAPY GYM AGAINST A BIKE BY ALEXY NICOLE (NICKO). PT WAS WALKING OUT OF ROOM WITHOUT ANY ASSISTIVE DEVICE. PER THERAPY, CHAIR ALARM WAS HEARD. VSS STABLE. PT REPORTED SOME DISCOMFORT ON HIS RIGHT SHOULDER AND RIGHT HIP. PT ABLE TO MOVE ALL EXTREMITIES. HE IS ON PACEMAKER PRECAUTION PROTOCOL. DENIES HITTING HEAD, OR COMPLAINS OF LIGHTHEADEDNESS. KUN CAR WAS IN UNIT AND ASSESS PT AND ORDERS RECEIVED FOR XRAY OF SHOULDER AND HIP. , FAUSTO CONTACTED AND LEFT MESSAGE TO CALL BACK. PT WAS BROUGHT TO THE NURSING STATION IN HIS RECLINER AND WAS WITH NURSING STAFF AND WAS PUT TO A ROOM CLOSER TO NURSES STATION FOR CLOSER SUPERVISION. PT IS ALERT BUT IS STILL CONFUSED AND NEEDS FREQUENT REORIENTATION. WILL CONT TO MONITOR.
[2020-03-23 10:35] VITALS: BP 149/65
--- NOTE | 2020-03-23 13:38 | NUR ---
team meeting, reccommendation: report impulsive, going to be moving to room closer to nursing station. doesnt remember his pacemaker percaution. on puree with nectar thick liquid. 24hr supervison. est dc 25th hh. family will need to look into 24hr. hh ( pt, ot, st, and nursing). fww.
[2020-03-23 20:00] VITALS: BP 130/42
--- NOTE | 2020-03-24 00:25 | NUR ---
PT REMAINS ALERT TO SELF. HE WAS IMPULSIVE ALOT AT THE START OF SHIFT BUT SINCE GETTING TO BED HAS BEEN SLEEPING. PT TAKES MEDS OKAY, VSS, REQUIRES ASSIST X 1. NO LOOSE STOOL SO FAR, REMAINS ON ISOLATION FOR CDIFF. AFEBRILE. ON ROOM AIR WITH NO CONCERNS FOR COUGH OR SOA.FALL PREC IN PLACE. WILL CONTINUE WITH POC TILL EOS.
--- NOTE | 2020-03-24 11:14 | NUR ---
WOUND CARE NOTE; ASSESS BUTTOCKS/SACRAL AREA W/ SPOUSE PRESENT, AREA ANA, POSSIBLY DUE TO SHEARING BUT PT SITTING LONG PERIODS AND SLEEPING IN CHAIR.NO S/S INFECTION, ALERT AND COOPERATIVE, STRONLY ENCOURAGED TO NO SIT LONGER THAT 2 HOUR PERIODS,OFF LOADING AND PRESSURE RELIEF, SUGGESTED SLEEPING IN BED AT H AND LAYING ON SIDE, INCONT AT TIMES URINE, VERBAL UNDERSTANDING BY SPOUSE AND PT, STATES WILL LAY DOWN IN BED THIS AFTERNOON AFTER THERAPY, WILL WILL GET PHOTO WHEN PT IN BED RECOMMENDATIONS; LOW AIR LOSS PUMP TO BED, WAFFLE SEAT CUSHION, ZGUARD BID AND PRN TO BUTTOCKS/SACRAL AREA, ENCOURAGE TO NOT SIT LONG PERIODS,OFF LOADING PRESSURE RELIEF, IF ABLE SLEEP IN BED AT HS PLANNING ADVISOR AWARE LOW AIR LOSS PUMP TO BED, WAFFLE SEAT CUSHION, ZGUARD BID AND PRN, ENCOURAGE TO NOT SIT LONG PERIODS, OFF LOADING, PRESSURE RELIEF
--- NOTE | 2020-03-24 13:10 | NUR ---
provider plus will deliver fww day of dc, rosie left private duty resources, life alert information and senior blue book for next time she visits.
--- NOTE | 2020-03-24 14:22 | NUR ---
ASSUMED CARES AT 0700. PT AWAKE, ORIENTED TO PRESON ONLY, CONFUSED AND IMPULSIVE. C/O SHOULDER AND HIP PAIN, ACETAMINOPHEN GIVEN NEEDED. VITALS REMAIN STABLE. PT CONTINUES TO HAVE MULTIPLE STOOLS (SOFT AND UNFORMED). SACRAL WOUND CLEANED AND BARRIER CREAM APPLIED. PACEMAKER SITE REMAINS INTACT. ASPIRATION PRECAUTIONS MAINTAINED. ISOLATION PRECAUTIONS MAINTAINED. PT UP WITH 1 MIN ASSIST, GB AND WALKER AND TOLERATED WELL. IN HIS W/C ALL MORNING BETWEEN THERAPIES ROAMING THE HALLWAYS. FREQ. VISUAL CHECKS. CALL LIGHT WITHIN REACH. FALL PRECAUTIONS IN PLACE.
[2020-03-24 19:55] VITALS: BP 107/47
--- NOTE | 2020-03-25 06:04 | NUR ---
Pt alert and oriented. VSS on RA. Meds given per emar. Pt took meds whole in applesauce. Pt incontinent of bowel and bladder this shift. Cdiff isolation precaution in place. Pt slept well this shift. Denies pain. Fall precaution in place. Call light within reach. Education provided on use of call light several times this shift. Will continue to monitor.
[2020-03-25 08:03] VITALS: BP 140/57
--- NOTE | 2020-03-25 09:48 | NUR ---
WOUND CARE F/U; ASSESSED SACRAL/COCCYX AREA W/ WOUND NURSE DANICA SANTILLAN, AREA LESS ANA, HEALING, NO DRAINAGE, NO S/S INFECTION, PT COOPERATIVE BUT SOME CONFUSION PRESENT, STILL HAVING ISSUES W/ INCONT URINE AND STOOL, ENCOURAGED TO NOT SIT LONG PERIODS,LOW AIR LOSS PUMP ON BED RECOMMENDATIONS; ZGUARD BID AND PRN, CONT LOW AIR LOSS PUMP TO BED, ENCOURAGED TO NOT SIT LONG PERIODS, PRESSURE RELIEF, OFF LOADING MATCH UP WORKER AWARE
--- NOTE | 2020-03-25 18:20 | NUR ---
ASSUMED CARES AT 0700. PT AWAKE ORIENTED TO PERSON ONLY, FORGETFUL AND CONFUSED. IMPULSIVE. VITALS REMAIN STABLE. PT DENIES PAIN. PT IN THE W/C BETWEEN THERAPIES AND EVENING, WHEELING AROUND THE HALLWAYS. SLEPT FOR 45MINS THIS AFTERNOON. SACRAL WOUND CLEANED AND Z-GUARD APPLIED. ASPIRATION PRECAUTIONS MAINTAINED (REMAINS ON NECTAR THICK FLUIDS). UP WITH 1 MIN ASSIST GB AND WALKER AND TOLERATED WELL. Q1H VISUAL CHECKS. CALL LIGHT WITHIN REACH. FALL PRECAUTIONS IN PLACE
[2020-03-25 19:44] VITALS: BP 120/64
--- NOTE | 2020-03-25 23:37 | NUR ---
Assumed pt care at 1900. Alert to self only,confused, impulsive trying to get up on his own from his WC several times w/o calling staff for help. Pt wandering on the hallway and going into other pt's rooms;doors closed for privacy. Pt has hallucinations as well. Using profanity words when redirected by staff. Medicated with Ativan with relief noted, pt calm resting on a recliner in DR feet elevated;pitting 2+ edema noted on BLE. Up with AX1 to the bathroom. Fall precautions in place,will continue to monitor pt.
[2020-03-26 07:42] VITALS: BP 109/44
--- NOTE | 2020-03-26 08:49 | NUR ---
cm received message from , wanting referral to be sent to [facility], " need to use insurance benefits and would like to get information about medicaid if needed. he also was not able to dial phone yesterday while i was visiting, would like someone to work with him on this"/ ryan. cm sent message to med assist for medicaid questions.
--- NOTE | 2020-03-26 16:07 | NUR ---
ASSUMED CARES AT 0700. PT AWAKE, ORIENTED TO PERSON ONLY, CONFUSED, IMPULSIVE. C/O NECK AND BACK PAIN, VOLTAREN GEL APPLIED TO NECK AND BACK. VITALS REMAIN STABLE. WOUNDCARE TO SACRAL WOUND COMPLETED. PT UP WITH 1 MIN ASSIST, GB AND WALKER AND TOLERATED WELL. *2 XLARGE SOFT/UNFORMED BM. FREQ. VISUAL CHECKS. CALL LIGHT WITHIN REACH. FALL PRECAUTIONS IN PLACE
[2020-03-26 18:43] VITALS: BP 140/62
--- NOTE | 2020-03-27 03:42 | NUR ---
assumed care approx 0 evening 03/26. pt lying in bed with head of bed elevated sleeping at change of shift. pt awoke to take hs meds with applesauce and fell back to sleep. pt incontinent of urine, assisted with changing of brief. pt remains in isolation for c-diff. pt talking in his sleep at times and pt turning himself from side to side in bed. bed alarm on and call light in reach and pt close to nurses station. will continue to monitor.
[2020-03-27 06:47] LABS: ABSOLUTE NEUTROPHILS 4.1 thou/uL (1.4-8.2); BASOPHILS 1.3 % (0.0-2.0); EOSINOPHILS 4.6 % (0.0-3.0); HEMATOCRIT 29.8 % (42.0-52.0); HEMOGLOBIN 9.4 gm/dL (14.0-18.0); LYMPHOCYTES 15.3 % (24.0-44.0); MCH 26.5 pg (26.0-34.0); MCHC 31.6 g/dL (28.0-37.0); MCV 83.9 fL (80.0-100.0); MONOCYTES 7.9 % (1.0-8.0); PLATELET COUNT 207 thou/uL (150-400); POLYS 70.9 % (36.0-66.0); RBC 3.55 mil/uL (4.50-6.00); RDW 21.4 % (10.5-14.5); WBC 5.8 thou/uL (4.0-11.0)
[2020-03-27 07:04] LABS: CALCIUM 7.8 mg/dL (8.5-10.1); CREATININE 1.2 mg/dL (0.7-1.3); MAGNESIUM 2.1 mg/dL (1.8-2.4); POTASSIUM 3.7 mmol/L (3.5-5.1)
[2020-03-27 07:45] VITALS: BP 137/48
--- NOTE | 2020-03-27 09:06 | NUR ---
cm passed on message from pt about his bday on sun, wanted to know if he could have a special meal for his bday. will cont following as needed for dc needs.
[2020-03-27 12:41] LABS: ANISOCYTOSIS 2+; OVALOCYTES FEW
--- NOTE | 2020-03-27 14:00 | NUR ---
ASSUMED CARE AT 0700. PT REPORTED FEELING TIRED DUE TO LACK OF SLEEP FROM INCONTINENCE OF BOWEL. ALERT AND ORIENTATED TO SELF, PLACE, YEAR AND TIME. PT GOT UP WITH MIN ASSIST TO THE WC. ATE 100% OF HIS MEALS. BLOOD SUGAR 80-110S WITH NO COVERAGE NEEDED. HE ALSO REPORTED LOWER BACK PAIN AND DUE TO SACRAL WOUND. HEATING PAD APPLIED AND TYELNOL GIVEN WITH GOOD RELIEF. PT ALSO EDUCATED TO LIE TO THE SIDE TO ALLEVIATE PRESSURE TO THE BOTTOM. COMPLIANT AND COOPERATIVE. CALL LIGHT WITHIN REACH, WORKED WITH ST, PT AND OT. PROGRESSING TOWARDS GOAL. CONT TO MONITOR. CHAIR ALARM ON.
[2020-03-27 21:04] VITALS: BP 132/52
--- NOTE | 2020-03-27 23:56 | NUR ---
ASSUMED PT CARE AT AROUND 1915 HRS. PT ALERT AND ORIENTED. GETS CONFUSED AND FORGETFUL. WAS ASKING FOR AND THINKS WE ARE HIS RELATIVES. PT IS IMPULSIVE. ASSISTED TO THE BSC, GAITBELT AND WALKER-WITH ONE PERSON. PT HAD A BM AND ALSO VOIDED.PT DENIES PAIN.TAKES MEDS CRUSHED IN APPLE SAUCE WITH NO DIFFICULTIES.PT IS AFEBRILE. HE REMAINS ON CDIFF ISOLATION.OPTIFOAM [facility].FALL PREC IN PLACE, WILL CONTINUE WITH POC TILL EOS.
[2020-03-28 08:48] VITALS: BP 146/75
[2020-03-28 08:51] VITALS: BP 144/65
--- NOTE | 2020-03-28 11:00 | NUR ---
ASSUMED CARE AT 0700. PT HAD A LARGE LOOSE BOWEL MOVEMENT AND REPORTED FEELING SLIGHTLY NAUSEATED. PT WAS CLEANED AND SAT HIM UP IN THE CHAIR. HE FELT BETTER BUT SEEMS A LITTLE BIT CONFUSED TODAY. HE IS IMPULSIVE AND TRIES TO GET UP FREQUENTLY. EASILY REORIENTATED. PT ASSISTED TO THE WC AND HE WHEELED HIMSELF AROUND THE NURSES STATION WITH CONSTANT SUPERVISION AND DOORS TO THE UNIT SHUT TO PREVENT FROM HIM LEAVING. CONCERNED FOR DEHYDRATION AFFECTING HIS CONFUSION VS LACK OF SLEEP FROM LAST NIGHT. PT GIVEN SEVERAL CUPS OF THICKEN WATER AND APPLE JUICE. DR CALVO INFORMED AND ORDERED TO RESUME VANCOMYCIN AND GET A SAMPLE OF CDIFF. HE ATE ALMOST 100% OF HIS MEALS TODAY. FAUSTO () WITH PATIENT SINCE LUNCH TIME. CONT TO MONITOR.
[2020-03-28 20:00] VITALS: BP 136/56
--- NOTE | 2020-03-29 02:42 | NUR ---
ASSUMED CARE OF PT AT 1915 ON 03/28/20. PT IS A&O TO SELF. DENIES PAIN. IS STABLE. REMIANS ON SPECIAL CONTACT ISOLATION PRECAUTIONS FOR C-DIFF. IS UP WITH 1 ASSIST, GB, WALKER. FALL PRECAUTIONS & HOURLY ROUNDING CONTNUED THIS SHIFT. PT HAS A STAGE 2 SACRAL WOUND. DRSG APPLIED. LABS & VITALS REVIEWED. PT CURRENTLY SLEEPING. CALL LIGHT WITHIN REACH. WILL CONTINUE TO MONITOR.
[2020-03-29 07:20] VITALS: BP 170/82
--- NOTE | 2020-03-29 13:37 | NUR ---
PT ORIENTED TO SELF ONLY. INCREASED CONFUSION THIS SHIFT. NEEDS REDIRECTED OFTEN. PT ROLLING SELF IN WHEELCHAIR, OFTEN ATTEMPTS TO GO OFF UNIT THROUGH UNIT DOORS. NEEDS FREQUENT SUPERVISION. PT NOT ATTEMPTING TO GET OUT OF WHEELCHAIR. ACTIVE THIS SHIFT UNTIL AFTER LUNCH. PT REQUESTED TO LIE DOWN FOR NAP. PT HAS HAD 1 INCONTINENT BOWEL MOVEMENT THIS SHIFT. UNABLE TO DETERMINE CONSISTENCY R/T PT SPREADING BM. PT RECEIVED SHOWER THIS SHIFT WITH MOD ASSIST. FALL PRECAUTIONS IN PLACE.
--- NOTE | 2020-03-29 15:16 | PLAN ---
[facility] [place] [address] REHAB UNIT PLAN OF CARE Name: VIRA NOVAK Room #: 514-P ADM IN M.R.#: [id number] Admission: 03/20/20 Attend Phys: Jony Kendrick MD Discharge: Date of : 39 Report #: [id number] THIS REPORT FOR: //name// CC: Jony Parker DATE OF SERVICE: 03/22/2020 PROGRESS NOTE AND OVERALL PLAN OF CARE SUBJECTIVE: The patient is seen back today in followup. He is in no distress. He is alert, follows basic commands. Staff notes that he has had some hallucinations. He does have decreased attention, but will refocus and is participatory. We do have Dr. Fonseca continuing to follow from a Psychiatry perspective. Functionally, he has been working in therapies with transfers max assist, gait max assist 4 steps without a device or with a front-wheeled walker. In occupational therapy, working in therapies. He also is having speech therapy assess and follow with him. They will be assessing not only swallowing, which for him has been pureed honey thick, but also cognition. We will recheck labs again tomorrow as he is on honey thick liquids. ASSESSMENT: 1. Acute metabolic encephalopathy. 2. Medical complexity with generalized debilitation. 3. Acute respiratory failure, status post extubation. 4. Heart block, second-degree, status post permanent pacemaker on 02/27/2020. 5. Acute renal insufficiency. 6. Dysphagia. The patient is on pureed heart-healthy diet. Speech therapy is further assessing and assisting. They are also working with him regarding his cognitive issues with his significant encephalopathy. 7. Coronary artery disease with ischemic cardiomyopathy. 8. Diabetes mellitus type 2. 9. Hypertension. 10. Hyperlipidemia. PLAN: The overall plan of care is based on the preadmission screen, post-admission physician evaluation and information garnered from therapy assessments. 1. Estimated length of stay probably at least 10 days to 2 weeks. 2. Medical prognosis is reasonably good. 3. Anticipated interventions include the interdisciplinary acute inpatient rehabilitation program. 4. Anticipated functional outcomes would be for the patient to become modified independent with transfers, mobility, ADLs and to improve as far as cognition and swallowing, so that he can return back to the home setting. 5. Discharge destination would be back to the home setting where he lives with [place] [id number] REHAB UNIT PLAN OF CARE Name: [facility] Room #: 514-P [facility] IN ..#: [id number] Admission: 03/20/20 Attend Phys: Jony Kendrick MD Discharge: Date of : 39 Report #: [id number] his significant other. 6. Expected therapy by discipline includes PT, OT and speech 1 hour per day each 5 days a week throughout the duration of the acute inpatient rehabilitation stay. <ELECTRONICALLY SIGNED> By: Jony Kendrick MD 03/29/20 1516 [id number] 2047 Jony Kendrick MD /dae
--- NOTE | 2020-03-29 15:16 | H ---
[facility] [place] [address] HISTORY AND PHYSICAL Name: VIRA NOVAK Room #: 514-P ADM IN M.R.#: [id number] Admission: 03/20/20 Attend Phys: Jony Kendrick MD Discharge: Date of : 37 Report #: [id number] THIS REPORT FOR: cc: Tod Parker MD, Stanley P. MD Smithson,Jony Morgan MD ~ CC: Jony Parker DATE OF SERVICE: 03/20/2020 HISTORY AND PHYSICAL/POSTADMISSION PHYSICIAN EVALUATION HISTORY OF PRESENT ILLNESS: The patient is an 84-year-old male who was originally admitted to [facility] with increased shortness of breath on 02/26/2020. He was found to have a second-degree block, seen by Cardiology, underwent dual chamber permanent pacemaker on 02/27/2020. He was treated for acute respiratory failure and pneumonia. He was intubated and extubated on 03/03/2020. He was followed by Pulmonary Services. His course was complicated by encephalopathy, toxic metabolic, requiring restraints until 03/10/2020. He was noted to be impulsive. Nephrology and Psychology have been following as well. He is also debilitated with generalized weakness. He has been admitted for acute in-hospital inpatient rehabilitation. PAST MEDICAL HISTORY: His prior medical history includes diabetes mellitus type 2, hypertension, hyperlipidemia, coronary artery disease with ischemic cardiomyopathy. MEDICATIONS: Please see the full medication listing. ALLERGIES: NITROGLYCERIN causing hypotension. SOCIAL HISTORY: He lives at home with his significant other and a 9-year-old grandson. The patient worked a few hours in the car and history was independent with ADLs and shared IADLs. He did not use any assistive devices. REVIEW OF SYSTEMS: Did not offer any current complaints of chest pain, shortness of breath or abdominal discomfort. REVIEW OF SYSTEMS: No chest pain, shortness of breath, or abdominal discomfort. PHYSICAL EXAMINATION: GENERAL: The patient is an 84-year-old white male who was rather sleepy, but does respond. VITAL SIGNS: Temperature 36.3, pulse 62, respirations 26, blood pressure 130/53. [facility] [address] [address] HISTORY AND PHYSICAL Name: VIRA NOVAK ODESSA Room #: 514-P [facility] IN M.R.#: [id number] Admission: 03/20/20 Attend Phys: Jony Kendrick MD Discharge: Date of : 37 Report #: [id number] HEENT: Facies appeared to be symmetric. Sleepy, definite latency to his responses, benefits and redirection. CHEST: Sounded clear to auscultation. CARDIOVASCULAR: Regular rate and rhythm. ABDOMEN: Bowel sounds positive, nontender permanent pacemaker site intact, left chest. EXTREMITIES: Gentle range of motion of the upper extremities. Tone appeared to be intact. Strength is probably 3+/5. Lower extremities, no focal calf swelling. No significant distal edema. He was rather groggy. Strength is somewhat difficult to assess. He has been mod assist coming to stand. ASSESSMENT: An 84-year-old white male with the following problems: 1. Acute metabolic encephalopathy. 2. Medical complexity with generalized debilitation. 3. Acute respiratory failure, status post extubation. 4. Heart block second-degree, status post permanent pacemaker on 02/27/2020. 5. Acute renal insufficiency. 6. Coronary artery disease with ischemic cardiomyopathy. 7. Diabetes mellitus type 2. 8. Hypertension. 9. Hyperlipidemia. PLAN: The patient has been admitted for acute in-hospital inpatient rehabilitation. From a postadmission physician evaluation perspective, there are no relevant changes since the preadmission screening. Please see the above review of prior medical and functional conditions and comorbidities. As far as risk of complications, the patient has multiple medical comorbidities as noted above. Initial plan of care involves the interdisciplinary acute inpatient rehabilitation program. Measurable functional goals would be for the patient to become modified independent with transfers, mobility and ADLs to improve as far as cognition, so that he can hopefully return back to his prior living situation. Prognosis is reasonably good with estimated length of stay probably at least 10 days to 2 weeks and likely longer. Potential barriers would include his multiple medical comorbidities and decreased functional status as well as his decreased cognition. The patient meets diagnostic criteria for an acute in-hospital inpatient rehabilitation stay. He meets the medical necessity criteria and we will have the risk and insurance consultant physicians continue to follow. He does have the tolerance for therapies and has appropriate discharge goals back to the home setting. <ELECTRONICALLY SIGNED> By: Jony Kendrick MD 03/29/20 [id number] Jony Kendrick MD /nt
[2020-03-29 17:00] VITALS: BP 128/81
--- NOTE | 2020-03-29 18:00 | NUR ---
ASSUMED CARE AT 1635. PT IS SEEN SITTING ON THE WC AND WHEELING HIMSELF AROUND THE NURSING STATION. PT REFUSED TO EAT DINNER TODAY AND REPORTED, "I DONT FEEL GOOD AND FEELING SLIGHTLY NAUSEATED". CONCERNED ABOUT PT MIGHT BE FEELING DEPRESSED WELL. HE WAS UP AND ABOUT IN HIS CHAIR AND NO COMPLAINS OF FEELING NAUSEATED OR PAIN. HE HAD 3 BOWEL MOVEMENTS TODAY. VANCOMYCING GIVEN. WILL CONT TO MONITOR.
[2020-03-29 19:46] VITALS: BP 132/67
--- NOTE | 2020-03-29 23:38 | NUR ---
PT WAS SITTING IN HIS WHEELCHAIR AT THE DESK WHEN I ASSUMED HIS CARE AT AROUND 1915HRS.PT TALKING TO STAFF. HE MEDS GIVEN. TYLENOL GIVEN FOR GENERALISED PAIN.PT STATED HE FELT NAUSEATED AFTER TAKING THE MEDS BUT AFTER TAKING SOME WATER, HE FELT BETTER. PT GOT INCREASINGLY RESTLESS. USED THE BSC, HAD A BM AND VOIDED. PT IS AFEBRILE. PT SEEN LOOKING FOR A LITTLE BOY AND HIS SISTER IN THE HALLWAYS. REORIENTAION PROVIDED.ZGUARD AND FOAM DRSG APPLIED TO SACCRAM.AT THIS TIME, PT IS OBSERVED WITH EYES CLOSED AT THIS TIME.
[2020-03-30 08:15] VITALS: BP 134/68
--- NOTE | 2020-03-30 10:34 | NUR ---
WOUND CARE F/U ASSESSED COCCYX/SACRAL AREA W/ ALEXY RN, AREA HEALING, MUCH IMPROVED, NO S/S INFECTION, NO DRAINAGE, STAGE 2 PRESSURE INJURY, STILL HAVING ISSUES W/ INCONT AT TIMES, ENCOURAGED TO NOT SIT LONG PERIODS, COOPERATIVE BUT SOME CONFUSION PRESENT, LOW AIR LOSS PUMP ON BED RECOMMENDATIONS; CONT POC W/ USE OF ZGUARD BID/PRN, CONT LOW AIR LOSS PUMP TO BED, ENCOURAGED TO NOT SIT LONG PERIODS, OFF LOADING, PRESSURE RELIEF RETAIL SALES PROFESSIONAL AWARE
--- NOTE | 2020-03-30 10:55 | HC ---
[facility] [place] [address] CONSULTATION Name: VIRA NOVAK Room #: 514-P ADM IN M.R.#: [id number] Admission: 03/20/20 Attend Phys: Jony Kendrick MD Discharge: Date of : 37 Report #: [id number] THIS REPORT FOR: cc: Tod Parker MD, Stanley P. MD Deutch,Buck Dooley. PhD ~ CC: Jony Parker DATE OF SERVICE: 03/27/2020 NEUROBEHAVIORAL STATUS EXAM AGE: 84. ATTENDING PHYSICIAN: Jony Kendrick M.D. BIOCHEMIST: Buck Wayne, PhD. CLINICAL PRESENTATION: The patient is an 84-year-old male admitted originally to the [facility] with shortness of breath on 02/26/2020. The patient was diagnosed with a second-degree block and seen by Cardiology. He underwent a dual chamber permanent pacemaker on 02/27/2020 and was treated for for acute respiratory failure and pneumonia. His prior medical history included diabetes mellitus type 2, hypertension, hyperlipidemia, coronary artery disease with ischemic cardiomyopathy. His assessment on admission to the rehabilitation unit was acute metabolic encephalopathy, medical complexity with generalized debilitation, acute respiratory failure, status post extubation, heart block, second-degree, status post permanent pacemaker on 02/27/2020, acute renal insufficiency, coronary artery disease with ischemic cardiomyopathy, diabetes mellitus type 2, hypertension and hyperlipidemia. A complete description of his medical condition and history can be found in his medical record. Neuropsychological consultation was requested to provide assistance in the assessment of cognitive and emotional status and to provide recommendations and services. Prior to this most recent medical event, he was living with his in their home. His indicates that they have been for about 28 years. 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 She reports that he was having some problems with cognition about 6-8 months prior to this recent medical event. He was becoming increasingly dependent on her for managing activities of daily living that include scheduling activities as well as managing bill payment and that he was having problems with word finding. His behavior had been sedentary. The patient has 2 children. 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 He is a high school graduate with additional college attendence. There is no reported history of treatment for anxiety or depression. However, he was taking an antidepressant at night prior to his admission. TECHNIQUES UTILIZED: Clinical interview, review of medical records, staff consultation and behavioral observation, mini mental status exam 2 standard version and interview with his . EXAMINATION FINDINGS: The patient was alert and cooperative with the assessment. However, he presents with intermittent confusion and disorientation. He is reported to have had visual hallucinations and been restless and fidgety. Symptoms reported include sleep, anxiety and depressed mood. He has 9-year-old twins that he is missing. Poor insight and awareness of his deficits in neurocognitive functioning. His performance on the MMSE 2 brief version is extremely low with a raw score of 6/18. He was 3/3 for initial registration, 2/5 for orientation to time, 0/[address] and 1/3 for immediate recall of 3 items after a brief time delay and distraction. Performance on the MMSE 2 standard version is extremely low with a raw score of 10/30. He was 0/5 for serial 7's, 1/2 for naming, he was able to repeat a simple statement and was 3/3 for auditory comprehension. He could not read and follow a single command. Deficits with driving and visual spatial construction along with clock drawing are noted. The patient is currently presenting with delirium. His indicates a decline in functioning that preceded his current acute medical event. suggesting a major neurocognitive disorder (dementia). The patient is also hard of hearing. However, decreased comprehension is suggested. DIAGNOSTIC IMPRESSION: Delirium, mixed level of activity, acute. Major neurocognitive disorder (dementia), unspecified, without behavior disorder -- extent to be determined. Unspecified anxiety disorder. RECOMMENDATIONS: The patient appears to have had a neurocognitive disorder that preceded this most recent medical event. Most likely, the extent of his current medical condition has revealed an underlying neurocognitive disorder. Vascular disease including diabetes may also be contributing to his presentaiton. [address] [address] CONSULTATION Name: VIRA NOVAK Room #: 514-P [facility] IN M.R.#: [id number] Admission: 03/20/20 Attend Phys: Jony Kendrick MD Discharge: Date of : 37 Report #: [id number] The patient will very likely require supervision and structure upon discharge. Assistance is needed with medical, financial and nutritional management. Driving should be discontinued. A followup neurocognitive evaluation is indicated to clarify the extent of his deficits and clarification of diagnosis. Thank you very much for allowing me to provide the consultation on this patient. <ELECTRONICALLY SIGNED> By: Buck Wayne, PhD 03/30/20 [id number] Buck Wayne, PhD /nt
--- NOTE | 2020-03-30 13:00 | NUR ---
team meeting, reccomendation: needs assist with bills and pills. fww with contaced assistance. diet is puree with nectar thick, vital stim . still needing answer from [facility] if can go skilled on .
--- NOTE | 2020-03-30 13:18 | NUR ---
ASSUMED CARES AT 0700. PT AWAKE, ORIENTED TO PERSON ONLY. CONFUSED AND IMPULSIVE. C/O MILD RIGHT SHOULDER PAIN, HEATING PAD UTILISED. VITALS REMAIN STABLE. WOUNDCARE TO SACRAL/COCCYX COMPLETED BY WOUNDCARE RN. ASPIRATION PRECAUTIONS MAINTAINED, PT REMAINS ON NECTAR-THICK LIQUIDS AND PUREE DIET WITH 100% SUPERVISION. PT IN THE W/C AFTER THERAPY AMBULATING THE HALLWAYS. UP WITH 1 MIN ASSIST, GB AND WALKER AND TOLERATED WELL. PT CELEBRATING HIS BIRTHDAY TODAY. FREQ. VISUAL CHECKS. CALL LIGHT WITHIN REACH. FALL PRECAUTIONS IN PLACE
--- NOTE | 2020-03-30 15:28 | NUR ---
FAXED REFERRAL TO [facility] SPOKE WITH NEO IN ADM SHE RECEIVED REFERRAL AND WILL ACCEPT SHE WILL NEED COVID TEST PRIOR TO DC ON 04/02 AMD WILL SUBMIT FOR AUTH. DP TO FOLLOW.
--- NOTE | 2020-03-31 04:14 | NUR ---
ASSUMED CARE OF PT AT 1915 ON 03/30/20. PT IS A&O TO SELF. IS ON ROOM AIR. DENIES PAIN. IS STABLE. IS UP WITH 1 ASSIST, GB, WALKER. FALL PRECAUTIONS & HOURLY ROUNDING CONTINUED THIS SHIFT. LABS & VITALS REVIEWED. DRSG TO SACRUM C/D/I. PT IS CURRENTLY SLEEPING. CALL LIGHT WITHIN REACH. REMAINS ON SPECIAL CONTACT ISOLATION PRECAUTIONS. C-DIFF NEGATIVE. WILL CONTINUE TO MONITOR.
[2020-03-31 08:00] VITALS: BP 141/66
--- NOTE | 2020-03-31 09:15 | NUR ---
received voice message from pt ryan wanting a referral for skilled sent to [facility]. referral to be sent. dc date cont to be
--- NOTE | 2020-03-31 11:44 | NUR ---
FAXED REFERRAL TO [facility] FOR SKILLED STAY RECEIVED CONFIRMATION AND LEFT MSG WITH JADEN IN ADM.
--- NOTE | 2020-03-31 14:31 | NUR ---
ASSUMED CARES AT 0700. PT ORIENTED TO SELF ONLY, CONFUSED AND IMPULSIVE. DENIES PAIN. VITALS REMAIN STABLE. SPECIAL ISOLATION MAINTAINED. ASPIRATION PRECAUTIONS MAINTAINED. PT HAS BLE EDEMA, OMER HOSE IN PLACE (UNABLE TO ELEVATE EXTREMITIES PT WAS IN THE W/C AMBULATING HALLWAYS). SACRAL WOUND CLEANED AND Z-GUARD APPLIED. PT UP WITH 1 MIN ASSIST, GB AND WALKER AND TOLERATED WELL. Q1H VISUAL CHECKS. CALL LIGHT WITHIN REACH. FALL PECAUTIONS IN PLACE
[2020-03-31 19:47] VITALS: BP 126/60
--- NOTE | 2020-04-01 01:56 | NUR ---
ASSESSED AT START OF SHIFT. PT ALERT TO SELF AND SITUATION. EVENING MEDS GIVEN WITH THICK LIQUID. PT UP WITH A WALKER TO THE BATHROOM. HAD A BM THIS SHIFT. ISOLATION PRECAUTIONS MAINTAINED FOR C-DIFF. RESULT NEGATIVE. PT IMPULSIVE GETS UP WITHOUT CALLING. FALL BUNDLES IN PLACE AND FREQ ROUNDING DONE. WILL CONT WITH POC TILL EOS.
[2020-04-01 06:00] LABS: ABSOLUTE NEUTROPHILS 4.7 thou/uL (1.4-8.2); BASOPHILS 1.2 % (0.0-2.0); HEMATOCRIT 30.4 % (42.0-52.0); HEMOGLOBIN 9.9 gm/dL (14.0-18.0); LYMPHOCYTES 18.5 % (24.0-44.0); MCH 27.5 pg (26.0-34.0); MCHC 32.6 g/dL (28.0-37.0); MCV 84.3 fL (80.0-100.0); MONOCYTES 10.4 % (1.0-8.0); PLATELET COUNT 244 thou/uL (150-400); POLYS 67.9 % (36.0-66.0); RDW 21.4 % (10.5-14.5); WBC 6.9 thou/uL (4.0-11.0)
[2020-04-01 06:17] LABS: CALCIUM 8.1 mg/dL (8.5-10.1); CREATININE 1.4 mg/dL (0.7-1.3); MAGNESIUM 2.2 mg/dL (1.8-2.4)
[2020-04-01 08:00] VITALS: BP 155/69
--- NOTE | 2020-04-01 11:13 | NUR ---
ASSUMED CARE AT 0700. PT IS UP WITH OT FOR SHOWER. PT IS STILL CONFUSED. ATE WELL AND TOOK ALL HIS MEDS WITHOUT ANY DIFFICULTY. PT ALSO SEEMS MORE AGITATED AND IMPULSIVE TODAY. HE PARTICIPATED WITH THERAPY WITH FREQUENT CUEING. PT WAS GIVEN LORAZEPAM AND HE CALMED DOWN AND REPORTED FEELING TIRED AND REQUESTED TO LIE IN BED. COVID TESTING DONE AND WAS NEGATIVE. PLAN FOR DISCHARGE TOMORROW TO SNF. ALEXY MAHARAJ NOTED OF RESULTS. CONT TO MONTIOR.
--- NOTE | 2020-04-01 13:11 | NUR ---
FAXED CLINICAL UPDATE TO [facility] RECEIVED CONFIRMATION AND LEFT MSG WITH JADEN IN ADM.
--- NOTE | 2020-04-01 16:24 | NUR ---
updates sent to [facility], they can take him for skilled memory care. cm clarified with ryan on if she wants [facility] or [facility]. she messaged back [facility]. cm team left message for [facility] to have [employer] transfer auth to [facility]. cm called arnaldo with [employer] to see who can make this happen by his dc to skilled tomorrow . will cont following as needed for dc needs.
--- NOTE | 2020-04-01 16:30 | NUR ---
when dc to [facility], send chart copy with him. he can go by wheel chair van. bedside nurse to call report to [phone]. dc orders to be faxed to [phone]. chart copy request, 4w us will complete and 5n bedside staff to tow picker the chart copy from 4w.
[2020-04-01 20:16] VITALS: BP 133/68
--- NOTE | 2020-04-02 02:40 | NUR ---
assumed care approx 1900 evening 04/01. pt sitting up in w/c in dining room with spouse at change of shift. pt wheeled himself around unit before hs and pt confused. assisted pt into bed and given hs meds crushed in pudding. pt continued with increased confusion, restlessness, and impulsive. pt given po Lorazepam as ordered and pt has been sleeping well. pt voided per urinal before falling asleep. bed alarm on and call light in reach. will continue to monitor.
[2020-04-02 08:00] VITALS: BP 152/69
--- NOTE | 2020-04-02 08:00 | NUR ---
ASSUMED CARE AT 0700. PT IS SLEEPING AND SEDATED. HE WAS GIVEN TRAZAODNE AND LORAZEPAM LAST NIGHT. HE IS STILL DROWSY BUT IS AROUSABLE AND ABLE TO OPEN HIS EYES. HE IS NOT ANSWERING OR TALKING AND GOES BACK TO SLEEPING. UNABLE TO GIVE HIS SCHEDULED AM MEDICATIONS DUE TO HIS LETHARGY AND STATE OF DROWSY. NATI CREDIT VERIFICATION CLERK ORDERED FOR LACTULOSE FOR ELEVATED AMMONIA. SHE IS AWARE OF PT'S CONDITION AND DCD HIS LORAZEPAM AND ORDERED FOR A UA AND CULTURE. PT WAS MORE AWAKE AND RESPONSIVE TO QUESTIONS AND ABLE TO VOID AND UA WAS SENT. PT WAS HELPED TO THE CHAIR AND TO DINING ROOM FOR MEAL AND ATE MORE THAN 50% OF HIS BREAKFAST. HE SAT IN THE DINING TILL LUNCH AND ATE MORE THAN 50% WELL. DENIES ANY PAIN. APPEARS MORE CALMER AFTER HE GOT UP AND WAS WHEELING HIMSELF IN THE HALLWAY. SPOKE TO ALEXY MAHARAJ AND STILL WAITING FOR HIS INSURANCE TO BE APPROVE BY [facility]. HIS DISCHARGE PLANNINING IS ON HOLD FOR NOW. NICKO WILL NOTIFY . PT REPORTED TO PCT, HE WAS NAUSEATED AND REFUSED DINNER, HAD A LARGE BM AND LATER WAS ABLE TO EAT AND NO COMPLAINS OF NAUSEA OR VOMITTING. WILL CONT TO MONITOR PROGRESS.
--- NOTE | 2020-04-02 08:23 | NUR ---
WOUND CARE F/U OT ASSISTING PT W/ BATH,ALERT BUT DROWSY,COOPERATIVE, PRESSURE INJURY COCCYX ALMOST CLOSED, HEALING, NO S/S INFECTION, LOW AIR LOSS PUMP REMAINS ON BED, SEE PROC INTERVENTION FOR WOUND DETAILS RECOMMENDATIONS; CONT CURRENT POC W/ JENNIFER, CONT LOW AIR LOSS PUMP, ENCOURAGE TO NOT SIT LONG PERIODS, PRESSURE RELIEF, OFF LOADING LAYER OUT PLATE GLASS AWARE
--- NOTE | 2020-04-02 08:40 | NUR ---
cm notified spiritual care that ryan is wanting to complete dpoa paperwork before he dc today to [facility]. per liaison still trying for [employer] authorization. bedside nurse to call report to [phone].
[2020-04-02 10:15] LABS: HEMATOCRIT 31.3 % (42.0-52.0); MCH 27.1 pg (26.0-34.0); MCHC 32.1 g/dL (28.0-37.0); MCV 84.6 fL (80.0-100.0); PLATELET COUNT 237 thou/uL (150-400); RDW 21.8 % (10.5-14.5); WBC 6.4 thou/uL (4.0-11.0)
[2020-04-02 10:27] LABS: CREATININE 1.1 mg/dL (0.7-1.3); POTASSIUM 3.9 mmol/L (3.5-5.1)
[2020-04-02] MEDS ORDERED: PROBIOTIC1 EAC1 PO (10:38)
[2020-04-02] MEDS ORDERED: VOLTAREN GEL 1100 G2 TOP (10:38)
[2020-04-02] MEDS ORDERED: IPRAT-ALBUT 0.5-3 ML INH (10:38)
[2020-04-02] MEDS ORDERED: DEPAKOTE500 MG PO (10:38)
[2020-04-02 10:40] LABS: URINE BILIRUBIN NEGATIVE (Negative); URINE BLOOD NEGATIVE (Negative); URINE CLARITY CLEAR; URINE COLOR YELLOW; URINE GLUCOSE-RANDOM* NEGATIVE (Negative); URINE KETONES NEGATIVE (Negative); URINE LEUKOCYTES-REFLEX NEGATIVE (Negative); URINE NITRITE-REFLEX NEGATIVE (Negative); URINE PROTEIN (DIPSTICK) NEGATIVE (Negative); URINE SPECIFIC GRAVITY 1.025 (1.005-1.035); URINE UROBILINOGEN 0.2 E.U./dl (0.2-1.0)
[2020-04-02 11:04] LABS: ABSOLUTE NEUTROPHILS 4.5 thou/uL (1.4-8.2)
[2020-04-02 11:05] LABS: ANISOCYTOSIS 2+; OVALOCYTES FEW
--- NOTE | 2020-04-02 14:18 | NUR ---
DIE MAINTENANCE TECHNICIAN NOTARIZED A DPOA FOR HEALTHCARE DECISIONS TODAY. HAD CALLED [facility] REQUESTING ONE BE NOTARIZED WITH HER THE DPOA. THIS CHAPAIN TRIED TO REACH THE AT NUMBERS ON FACESHEET WAS UNABLE AND LEFT A MESSAGE. PATIENT AND APPEARED TO BE IN A LOVING RELATIONSHIP. STAFF SAID SEEMED VERY SUPPORTIVE OF THE PATIENT IN PROCESS. THIS DIE MAINTENANCE TECHNICIAN WAS SOMEWHAT CONCERNED ABOUT THE MENTAL COMPETENCY OF THE PATIENT TO MAKE HIS OWN DECISONS. THE PATIENT VERBALLY CONFIRMED TO THIS DIE MAINTENANCE TECHNICIAN AND ANOTHER WITNESS, HIS NURSE. THAT HE DID NOT SEE ANY RESON TO NOT HAVE HIS BE HIS DPOA FOR HEALTHCARE DECISONS. HE HAS NEVER BEEN REAL CLEAR IN HIS THOUGHTS SINCE THE SURGERY. THE PATIENT CONFIRMED DPOA, BUT HE IS VERY CONFUSED AND IMPULSIVE AT TIMES. NOTES IN THE CHART INDICATED THE PATIENT ARRIVED HERE ON 02/26/2020. HE HAD A PACEMAKER PUT IN ON 02/27/2020. PATIENT BEGAN TO HAVE CONFUSION AFTER THE PROCEDURE AND ENDED UP HAVING TO BE INTUBATED WHILE ON [address] [place] [address] ON 02/28/2020. PATIENT NEVER REALLY GOT BACK TO "HIMSELF" AFTER THAT TIME. HE HAD AN EXTENDED STAY IN ICU, THEN WALKER [facility], THEN REHAB UNIT AND SCHEDULED FOR DISCHARGE TODAY.
[2020-04-02 20:13] VITALS: BP 119/51
--- NOTE | 2020-04-03 03:32 | NUR ---
assumed care approx 0 evening 04/02. pt sitting up in w/c at change of shift wheeling himself around unit and sometimes entering other pts rooms. pt confused and impulsive needing redirection and reminders. pt becoming more agitated as night went on, refused to take hs meds and spit out. order recd for 1 time IM dose of xyprexa and given as ordered. pt assisted to bed and has been sleeping off and on thru night. assisted pt with urinal and repositioning in bed. bed alarm on and call light in reach. will continue to monitor.
[2020-04-03 08:00] VITALS: BP 165/85
--- NOTE | 2020-04-03 15:03 | NUR ---
ASSUMED CARES AT 0700. PT AWAKE, ORIENTED TO PERSON ONLY, CONFUSED AND IMPULSIVE. DENIES PAIN. VITALS REMAIN STABLE. SPECIAL ISOLATION PRECAUTIONS MAINTAINED, PT HAD *2 UNFORMED BM LARGE, ALL CONTINENT. SACRAL WOUNDS CLEANED AND BARRIER CREAM APPLIED. PT UP WITH 1 MIN ASSIST, GB AND WALKER AND TOLERATED WELL. FREQ. VISUAL CHECKS, AT THE BEDSIDE, CALL LIGHT WITHIN REACH. FALL PRECAUTIONS IN PLACE.
[2020-04-03 20:10] VITALS: BP 149/81
--- NOTE | 2020-04-04 00:27 | NUR ---
PT ALERT, CONFUSED. UP IN W/C ALL EVENING ROLLING AROUND UNIT. ASSISTED TO BED AT HS WITH ONE PERSON ASSIST. PT TAKES MEDS CRUSHED IN APPLESAUCE WITHOUT DIFFICULTY. NO STOOLS SO FAR TONIGHT. PT DENIES PAIN OR DISCOMFORT. TRAZADONE GIVEN AT HS FOR SLEEP. BED ALARM ON FOR SAFETY. PT APPEARS TO BE SLEEPING ON HOURLY ROUNDS.
[2020-04-04 08:18] VITALS: BP 165/93
--- NOTE | 2020-04-04 12:44 | NUR ---
ASSUMED CARES AT 0700. PT AWAKE, ORIENTED TO PERSON ONLY, CONFUSED. DENIES PAIN, VITALS REMAIN STABLE. PT WAS INCONTINENT OF BLADDER AND STOOL THIS AM, CLEANED AND BEDDINGS CHANGED. SACRAL WOUND CLEANED AND BARRIER CREAM APPLIED. ISOLATION PRECAUTIONS MAINTAINED. PT UP IN THE W/C FOR MEALS. ASPIRATION PRECAUTIONS MAINTAINED. AT THE BEDSIDE. PT UP WITH 1 MIN ASSIST, GB AND WALKER. Q1H VISUAL CHECKS. CALL LIGHT WITHIN REACH. FALL PRECAUTIONS IN PLACE
[2020-04-04 17:15] VITALS: BP 140/95
[2020-04-04 19:45] VITALS: BP 135/66
--- NOTE | 2020-04-05 05:49 | NUR ---
PATIENT WAS ON HIS WHEELCHAIR FOR A WHILE THIS SHIFT AND ATTEMPTING TO LEAVE THE UNIT TOO.PATIENT IS PLEASANTLY CONFUSED.REFUSED HIS MEDS BUT WAS ABLE TO GET HOLD OF HIS AND CONVINCED TO TAKE HIS MEDS.PATIENT DID NOT SLEEP UNTIL 2 AM.WILL WAKE UP FROM TIME TO TIME BUT STAYED IN BED. CALLED THIS MORNING TO CHECK ON THE PATIENT.POC CONTINUED.
[2020-04-05 08:00] VITALS: BP 142/71
--- NOTE | 2020-04-05 08:03 | NUR ---
cm notified by chani with [facility], he was denied skilled rehab. p2p before noon 04/05/2020, to call [phone] then option 4. cm passed on infromation to dr concepcion, and inpatient services director's. will cont following as needed for dc needs.
--- NOTE | 2020-04-05 08:57 | NUR ---
WOUND CARE F/U; ASSESSED COCCYX WOUND W/ CHIEF CONCIERGE LIANNE, PT COOPERATIVE BUT SOME CONFUSION PRESENT, INCONT STOOL, CLEANSED, COCCYX/SACRAL WOUND ALMOST CLOSED, HEALING, NO S/S INFECTION, ZGUARD APPLIED, REMAINS ON LOW AIR PUMP TO BED, SEE PROCESS INTERVENTION FOR WOUND DETAILS RECOMMENDATIONS; CONT CURRENT POC, ENCOURAGE TO NOT SIT LONG PERIODS, OFF LOADING, PRESSURE RELIEF, ZGUARD BID AND PRN CHIEF CONCIERGE AWARE
--- NOTE | 2020-04-05 13:58 | NUR ---
PT ALERT AND ORIENTED TIMES TWO PERSON AND PLACE. VSS. PT DENIES PAIN/SOA. PT TOLERATES MEDS AND MEALS. PT WORKS VERY WELL WITH PT/OT, WALKS AROUND THE UNIT. SPOKE WITH PT TODAY AND UPDATED HER ON HIS CARE. PT PROGRESSING TOWRADS POC GOALS.
[2020-04-05 20:30] VITALS: BP 114/50
--- NOTE | 2020-04-06 02:32 | NUR ---
ASSUMED PT CARE AT AROUND 1915 HRS.PT WAS IN HIS W/CHAIR SITTING AT THE NURSING STATION. PT SEEMED TIRED AND FINALLY WENT TO BED AT ABOUT 2100HRS. INCONTINENT OF B/B TONIGHT. TOOK MEDS WELL CRUSHED IN APPLE SAUCE. DENIES PAIN. NO COUGH OR SOA NOTED. CONTINUES ON ISOLATION FOR HX OF CDIFF. ASKING FOR BUT PATIENT REORIENTED TO TIME AND PLACE.HE APPEARS TO HAVE CECILIO RESTING QUIETLY SINCE ABOUT [address]
[2020-04-06 09:10] VITALS: BP 141/60
--- NOTE | 2020-04-06 13:36 | NUR ---
team meeting, reccommendation dc 04/09 with 24 hr supervisor rides, assist with bills and bills, hh (pt, ot, st, vital stim, nursing and sw). to set up private duty. will need fww. diet puree with nectar thick.
--- NOTE | 2020-04-06 16:03 | NUR ---
ASSUMED CARE AT SHIFT CHANGE. PT ORIENTED TO PERSON AND PLACE, CALM AND PLESANT THIS SHIFT. PT TOOK MORNING MEDS WITH BREAKFAST WITH SPEECH THERAPY AND RN, WHOLE WITH APPLESAUCE. TOLERATED WELL. DENIES PAIN THROUGHOUT SHIFT. SLEEPING MOST OF THE AFTERNOON AFTER THERAPIES. DTR CALLED AND UPDATED. STATES WILL COME TO SEE HIM THIS EVENING. PROGRESSING TOWARDS POC GOALS. WILL CONT TO MONITOR.
--- NOTE | 2020-04-06 18:28 | NUR ---
PT C/O L ARM PAIN, BURNING UP TO L NECK, SOME NAUSEA AND WHEN ASKED IF HE IS HAVING CHEST PAIN HE STATES " A LITTLE BIT". LIP CUTTER AND SCORER CALLED AND WILL GET EKG, LABS AND TROPONIN.
[2020-04-06 19:06] LABS: ABSOLUTE NEUTROPHILS 4.8 thou/uL (1.4-8.2); BASOPHILS 0.6 % (0.0-2.0); EOSINOPHILS 1.2 % (0.0-3.0); HEMOGLOBIN 10.2 gm/dL (14.0-18.0); LYMPHOCYTES 16.6 % (24.0-44.0); MCH 27.1 pg (26.0-34.0); MCHC 31.8 g/dL (28.0-37.0); MCV 85.3 fL (80.0-100.0); MONOCYTES 11.4 % (1.0-8.0); PLATELET COUNT 233 thou/uL (150-400); POLYS 70.2 % (36.0-66.0); RBC 3.75 mil/uL (4.50-6.00); RDW 21.4 % (10.5-14.5); WBC 6.8 thou/uL (4.0-11.0)
[2020-04-06 19:20] LABS: CALCIUM 8.2 mg/dL (8.5-10.1); CREATININE 1.5 mg/dL (0.7-1.3); POTASSIUM 3.6 mmol/L (3.5-5.1)
[2020-04-06 20:00] VITALS: BP 109/52
--- NOTE | 2020-04-07 01:01 | NUR ---
PT ALERT AND ORIENTED X 1, CONFUSED. IMPULSIVE AT TIMES. INCONT OF URINE. NO STOOLS SO FAR TONIGHT. PT DENIES PAIN OR DISCOMFORT. BED ALARM ON FOR SAFETY. PT EASILY VISIBLE FROM NURSES STATION. PT AWAKE NOW. HAS BEEN SLEEPING UP UNTIL NOW. TRAZADONE GIVEN AT HS FOR SLEEP.
--- NOTE | 2020-04-07 07:41 | EKG ---
[facility] [place] [address] ELECTROCARDIOGRAM REPORT Name: VIRA NOVAK Room #: 514- ADM IN M.R.#: [id number] Admission: 03/20/20 Attend Phys: Jony Kendrick MD Discharge: Date of : 39 Report #: [id number] THIS REPORT FOR: cc: Tod Parker MD, Stanley P. MD Lundgren, Craig H. 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: Moise TONY : 1935 Requested By: Magda Laguna Order Number: [id number] MD: Ravin Hickey Measurements Intervals [place] Rate: 60 P: 62 MO: 153 QRS: 99 QRSD: 146 T: -67 QT: 410 QTc: 410 Interpretive Statements Ventricular pacing No further analysis attempted due to paced rhythm Compared to ECG 03/11/2020 08:17:23 Pacing is now present Electronically Signed On 04-07-2020 7:41:49 CDT by Ravin Hickey [email or web address] <ELECTRONICALLY SIGNED> By: Ravin Hickey MD, [facility] 04/07/20 0741 [id number] Ravin Hickey MD, [facility] /EPI
--- NOTE | 2020-04-07 10:17 | NUR ---
cm left message with med assist needing medicaid ketty to send to ltc facility for memory care ltc or reg ltc. rosie spoke with ayo dahl with review once get pending medicaid ketty, don't have memory care bed but have regular ltc bed. other referrals sent to centers of , and [facility].
--- NOTE | 2020-04-07 18:38 | NUR ---
ASSUMED CARE OF PT AT 0700. PT IS A&OX1 AND VITAL SIGNS ARE STABLE. PT ON ISOLATION FOR C-DIFF THIS HOSPITAL VISIT, RESULTS NOW NEGATIVE. PT DENIES PAIN AND PARTICIPATED IN THERAPIES. WOUND TO BUTTOCKS CLEANED AND Z-GUARD APPLIED. PT IS IMPULSIVE AND WANDERS THE UNIT. DOORS TO UNIT CLOSED FOR SAFETY. FALL PRECAUTIONS IN PLACE AND NURSING WILL CONTINUE TO MONITOR.
[2020-04-07 20:04] VITALS: BP 131/71
[2020-04-08 05:54] LABS: ABSOLUTE NEUTROPHILS 3.5 thou/uL (1.4-8.2); EOSINOPHILS 1.6 % (0.0-3.0); HEMATOCRIT 31.8 % (42.0-52.0); HEMOGLOBIN 10.4 gm/dL (14.0-18.0); LYMPHOCYTES 20.4 % (24.0-44.0); MCH 27.7 pg (26.0-34.0); MCHC 32.6 g/dL (28.0-37.0); MCV 84.8 fL (80.0-100.0); MONOCYTES 11.6 % (1.0-8.0); PLATELET COUNT 180 thou/uL (150-400); POLYS 65.4 % (36.0-66.0); RBC 3.75 mil/uL (4.50-6.00); RDW 21.4 % (10.5-14.5); WBC 5.4 thou/uL (4.0-11.0)
[2020-04-08 06:09] LABS: CALCIUM 8.1 mg/dL (8.5-10.1); CREATININE 1.5 mg/dL (0.7-1.3); MAGNESIUM 2.2 mg/dL (1.8-2.4); POTASSIUM 3.7 mmol/L (3.5-5.1)
[2020-04-08 08:00] VITALS: BP 124/76
--- NOTE | 2020-04-08 10:33 | NUR ---
cm sent [place] pend ketty to vsf and op centers. anali will have to self quarantine in room for 14days rt covid pandemic , memory care or ltc. both facility will check pending medicaid and get back to cm team. cm passed on information to well logger.
--- NOTE | 2020-04-08 12:55 | NUR ---
ASSUMED CARES AT 0700. PT AWAKE,ORIENTED TO PERSON ONLY. CONFUSED AND FORGETFUL. DENIES PAIN.VITALS REMAIN STABLE. SACRAL WOUND CLEANED AND Z-GUARD REAPPLIED. PT IN W/C AMBULATING THE HALLWAYS IN BETWEEN THERAPY.ASPIRATION PRECAUTIONS MAINTAINED. PT UP WITH 1 MIN ASSIST,GB AND WALKER AND TOLERATED WELL. FREQ. VISUAL CHECKS. CALL LIGHT WITHIN REACH. FALL PRECAUTIONS IN PLACE
[2020-04-08 19:59] VITALS: BP 119/55
--- NOTE | 2020-04-09 03:47 | NUR ---
Patient is alert but disoriented and spent almost half of th night on his wheelchair interactring with staff and wandering around the hallway. He ws compliant with night time medications, and was placed in bed where he remained resting with eyes closed, breathing normally and no signs of distress
[2020-04-09 07:15] VITALS: BP 154/79
--- NOTE | 2020-04-09 12:43 | NUR ---
ASSUMED CARES AT 0700. PT AWAKE, ORIENTED TO PERSON AND PLACE, FORGETFUL AND CONFUSED. VITALS REMAIN STABLE. C/O MILD BACK PAIN, TRANSFERRED TO BED. ASPIRATION PRECAUTIONS MAINTAINED. PT PARTICIPATED WELL IN ALL THERAPIES AND CONTINUES TO PROGRESS TOWARDS DC GOALS. FREQ. VISUAL CHECKS. CALL LIGHT WITHIN REACH. FALL PRECAUTIONS IN PLACE.
--- NOTE | 2020-04-09 16:10 | NUR ---
cm received message from ryan wishing he could stay until medicaid [place] is active. cm faxed ltc/mem care referral to [facility], [facility], [facility], [facility] and updates to [facility] and [facility]. will cont following as needed for dc needs.
[2020-04-09 17:00] VITALS: BP 124/56
[2020-04-09 19:10] VITALS: BP 128/56
--- NOTE | 2020-04-10 00:05 | NUR ---
PT ALERT, CONFUSED. UP IN W/C ROLLING AROUND UNIT UNTIL ABOUT 2129. TRANSFERRED TO BED WITH ASSIST X 1. HAS BEEN CONT OF URINE SO FAR TONIGHT. NO STOOLS. PT TAKES MEDS CRUSHED IN APPLESAUCE WITHOUT DIFFICULTY. PT DENIES PAIN OR DISCOMFORT. TRAZADONE GIVEN AT HS FOR SLEEP. BED ALARM ON FOR SAFETY. PT APPEARS TO BE SLEEPING ON HOURLY ROUNDS.
[2020-04-10 08:00] VITALS: BP 150/81
--- NOTE | 2020-04-10 11:00 | NUR ---
ASSUMED CARE AT 0700. PT SLEPT FAIRLY WELL. PT HAD A LARGE BM THIS MORNING WHILE WORKING WITH PT. DENIES ANY PAIN. ALERT BUT STILL CONFUSED. UP IN WC AND WHEELING HIMSELF IN THE HALLWAY. ATE 100% OF HIS MEALS WITHOUT ANY DIFFICULTY. PARTICIPATING WITH THERAPY. CONT TO MONITOR.
[2020-04-10 21:15] VITALS: BP 124/59
--- NOTE | 2020-04-11 01:07 | NUR ---
PT ALERT AND ORIENTED X 1, CONFUSED. IMPULSIVE AT TIMES. INCONT OF URINE. PT TAKES MEDS CRUSHED IN APPLESAUCE WITHOUT DIFFICULTY. PT DENIES PAIN OR DISCOMFORT. BED ALARM ON FOR SAFETY. PT APPEARS TO BE SLEEPING ON HOURLY ROUNDS.
[2020-04-11 07:40] VITALS: BP 146/68
--- NOTE | 2020-04-11 07:57 | NUR ---
ASSUMED CARE AT 0700. PATIENT IS ALERT AND ORIENTED X1 TO SELF. PATIENT PARKER'S, EMS HELICOPTER PILOT ARE EQUAL. LUNGS ARE CLEAR AND DEMINISHED. ABD IS SOFT WITH BSX4. PATIENT IN BED RESTING QUIETLY AT THIS TIME. UP TO THE DINING ROOM FOR MEALS IN HIS W/C. FALL AND SAFETY PROTOCOLS IN PLACE. DENIES PAIN. CONTINUES TO PROGRESS SLOWLY TOWARDS D/C. PATIENT MAY BE D/C'D TO LTCF ON MON. WILL CONTINUE TO MONITER.
[2020-04-11 20:10] VITALS: BP 123/52
--- NOTE | 2020-04-12 02:12 | NUR ---
PT CARE ASSUMED WITH PT IN BED WATCHING TV.PT IS CONFUSED AND IMPULSIVE,PT TRIED GETTING OUT OF BED WITH NO ASSISTANCE TILL THIS TIME.PT IS UP WITH X1 ASSIST TO THE BEDSIDE COMMODE AND BATHROOM AND ALSO USED URINAL.PT INCONTINENT TO BOWEL X1.TRAZODONE GIVEN TO SLEEP.WILL CONTINUE TO MONITOR
[2020-04-12 07:30] VITALS: BP 152/58
--- NOTE | 2020-04-12 08:47 | NUR ---
ASSUMED CARE AT 0700. PER REPORT PT DID NOT SLEEP LAST NIGHT AND WAS UP AND UNABLE TO SLEEP. DENIES ANY PAIN OR DISCOMFORT. PT IS UP IN THE WC WHEELING HIMSELF IN THE HALLWAY. PARTICIPATING WITH THERAPY. ATE 100% OF HIS BREAKFAST. TENTATIVE DISHARGE TODAY TO [facility]. WILL CONT TO MONITOR.
--- NOTE | 2020-04-12 10:40 | NUR ---
cm team still needing [place] medicaid appy, bills and financial records to send to vsf and op centers. cm received message over the weekend from ryan granados asking about the medicaid ketty. received voice message from [facility] - no ltc beds and they don't take medicaid, vsf - received email from roberta over the weekend, [facility], and [facility] are all closed to accepting any new pt at this time rt covid. [facility] called back have no ltc beds open. [facility] - unable to accept rt insurance.
--- NOTE | 2020-04-12 11:31 | NUR ---
WOUND CARE F/U; COCCYX WOUND ASSESSED W/ COMMISSIONING EDITOR GOPAL, HEALING, NO S/S INFECTION, PINK VIABLE TISSUE PRESENT, LOW AIR LOSS PUMP REMAINS ON BED AND HAS FOAM SEAT CUSHION ON W/C, PT COOPERATIVE BUT STILL SOME CONFUSION PRESENT RECOMMENDATIONS; CONT CURRENT POC, ZGUARD TO COCCYX, CONT LOW AIR LOSS PUMP TO BED, ENCOURAGE TO NOT SIT LONG PERIODS, OFF LOADING, PRESSURE RELIEF COMMISSIONING EDITOR AWARE
--- NOTE | 2020-04-12 16:17 | NUR ---
F/U WITH [facility] ON REFERRAL FAXED SUNDAY SPOKE WITH NEELIMA IN ADM THEY HAVE NO BED AVAILABLE FOR QUITE AWHILE.
[2020-04-12 19:40] VITALS: BP 137/53
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
[2020-04-13 07:45] VITALS: BP 147/59
--- NOTE | 2020-04-13 10:07 | NUR ---
ASSUMED CARE AT 0700. PATIENT IS CONFUSED. PATIENT PARKER'S, FOOD SERVER ARE EQUAL. PATIENT LUNGS ARE CLEAR AND DEMINISHED, WITH AN OCCASIONAL NON-PRODUCTIVE COUGH. ABD IS SOFT WITH BSX4. PATIENT ASSISTED TO BR WITH O.T. PATIENT WAS INCONTINENT OF STOOL. UP TO THE DINING ROOM WITH S.T. FALL AND SAFETY PROTOCOLS IN PLACE. DENIES PAIN. CONTINUES TO PROGRESS TOWARDS D/C SLOWLY TOWARDS D/C GOALS. WILL CONTINUE TO MONITER.
--- NOTE | 2020-04-13 11:50 | NUR ---
FAXED REFERRAL TO [facility] SPOKE WITH BRANDIE THEY RECEIVED REFERRAL AND WILL REVIEW.
--- NOTE | 2020-04-13 12:50 | NUR ---
team meeting, reccommendation: he will need [facility] care [facility]. cont to work on placement and when [place] medic[place] process is [place].
[2020-04-13 20:00] VITALS: BP 127/66
--- NOTE | 2020-04-13 22:30 | NUR ---
UP IN WC THIS EVENING, 2 LOOSE BM SINCE THEN. TOLERATING MEDS CRUSHED IN APPLESAUCE. REPEATED QUESTIONS TO STAFF ABOUT HOW TO GET HIS PAYCHECK
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
[2020-04-14 06:28] LABS: HEMATOCRIT 33.1 % (42.0-52.0); HEMOGLOBIN 10.6 gm/dL (14.0-18.0); MCH 27.1 pg (26.0-34.0); MCHC 32.1 g/dL (28.0-37.0); MCV 84.2 fL (80.0-100.0); RBC 3.93 mil/uL (4.50-6.00); RDW 20.7 % (10.5-14.5); WBC 7.1 thou/uL (4.0-11.0)
[2020-04-14 06:43] LABS: CALCIUM 8.2 mg/dL (8.5-10.1); CREATININE 1.6 mg/dL (0.7-1.3); POTASSIUM 4.2 mmol/L (3.5-5.1)
[2020-04-14 08:00] VITALS: BP 144/65
--- NOTE | 2020-04-14 09:27 | NUR ---
[facility] will be coming out today to do eval for cary to see if they can meet his needs. cm passed on information to tata and his ryan, she can also go to [employer] website and do a virtual tour if she wants. will cont following as needed for dc needs.
--- NOTE | 2020-04-14 10:05 | NUR ---
ASSUMED CARE AT 0700. PATIENT IS ALERT AND ORIENTED TO SELF. PATIENT IS IMPULSIVE AND COMBATIVE AT TIMES. PATIENT PARKER'S, INSTRUCTOR KINDERGARTEN ARE EQUAL. LUNGS ARE CLEAR AND DEMINISHED. ABD IS SOFT WITH BSX4. UP IN DINING ROOM IN W/C WITH S.T. FOR BREAKFAST. FALL AND SAFETY PROTOCOLS IN PLACE. DENIES PAIN AT THIS TIME. CONITNUES TO PROGRESS SLOWLY TOWARDS D/C GOALS. WILL CONTINUE TO MONITER.
--- NOTE | 2020-04-14 12:00 | NUR ---
WOUND CARE F/U; UP AMBULATING IN ROOM W/ THERAPY, ALERT, COOPERATIVE, COCCYX WOUND HEALING, NO S/S INFECTION, LOW AIR LOSS PUMP REMAINS ON BED, HAS GEL CUSHION IN W/C, INCONT AT TIMES STOOL AND URINE, ENCOURAGED TO NOT SIT LONG PERIODS RECOMMENDATIONS; CONT CURRENT POC, ZGUARD BID AND PRN, CONT LOW AIR LOSS PUMP TO BED, SEAT CUSHION W/C, ENCOURAGE TO NOT SIT LONG PERIODS, OFF LOADING, PRESSURE RELIEF ALLIED HEALTH INSTRUCTOR AWARE
[2020-04-14 20:07] VITALS: BP 121/67
--- NOTE | 2020-04-15 03:15 | NUR ---
AFTER INCREASED DOSE OF ZYPREXA AND PRN TRAZADONE GIVEN LAST EVENING, PATIENT WAS UP IN WC FOR ABOUT AN HOUR, THEN HAD FORMED STOOL BEFORE GOING TO BED. AWAAKE AT 0300 DUE TO INCONTINENCE OF URINE, FRESH GOWN, ZGUARD, AND IS NOW BACK TO SLEEP.
--- NOTE | 2020-04-15 06:51 | NUR ---
ryan sent another message with number to [email or web address] and wanted to know about getting a poa. 0740, rosie sent message to ryan stating that we do not do poa paper work or any financial documents. ryan sent more [employer] information and cm passed on that the [employer] will not release information to case management at hospital. SWABBER requested referral be sent to [facility] in [place].
[2020-04-15 09:13] VITALS: BP 168/85
--- NOTE | 2020-04-15 11:50 | NUR ---
ASSUMED CARE AT 0700. PT REPORTED DID NOT SLEEP WELL AND PT HAD TO GO TO THE BATHROOM EARLIER TODAY AND HAD A BOWEL INCONTINENCE. NO REPORTED INCIDENCE OF IMPULSIVENESS OR AGITATION. WHEELING HIMSELF IN THE HALLWAY. PARTICIPATING IN THERAPY. APPETITE GOOD. CORRECTION PLACEMENT PENDING. DENIES ANY PAIN. WILL CONT TO MONITOR.
--- NOTE | 2020-04-15 14:05 | NUR ---
FAXED REFERRAL TO [facility] SPOKE WITH JADEN IN ADM SHE RECEIVED REFERRAL AND WILL REVIEW.
--- NOTE | 2020-04-15 16:39 | NUR ---
FAXED REFERRAL TO [facility] RECEIVED CONFIRMATION ALEXY (RN/SW) WILL F/U WITH FACILITY TOMORROW.
[2020-04-15 20:13] VITALS: BP 109/50
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
--- NOTE | 2020-04-16 11:16 | NUR ---
WOUND CARE F/U; ASSESSED COCCYX WOUND, HEALING, NO DRAINAGE, NO S/S INFECTION, HAS LOW AIR LOSS PUMP ON BED AND GET SEAT CUSHION, COOPERATIVE, ALERT BUT SOME CONFUSION PRESENT, STILL HAVING ISSUES W/ INCONT AT TIMES, SEE PROCESS INTERVENTION FOR WOUND DETAILS RECOMMENDATIONS; CONT ZGUARD TO AREA, CONT LOW AIR LOSS PUMP TO BED, SEAT CUSHION, OFF LOADING AND PRESSURE RELIEF VIRTUAL OFFICE ASSISTANT AWARE
--- NOTE | 2020-04-16 13:09 | NUR ---
ASSUMED CARE AT 0700. PT SLEPT FAIRLY WELL PER REPORT BUT PT REPORTED LACK OF SLEEP. DENIES ANY PAIN. ATE 100% OF HIS BREAKFAST. PARTICIPATING IN THERAPY, PROGRESSING WITH THERAPY. NURSING PLACEMENT STILL PENDING. PT IS COOPERATIVE. WHEELING HIMSELF IN THE HALLWAY USING HIS WC. CONT TO MONITOR.
[2020-04-16 20:05] VITALS: BP 121/65
--- NOTE | 2020-04-17 03:37 | NUR ---
TO BED APPROX 1945 AND ASLEEP UNTIL MIDNIGHT WHEN AWAKE FOR WALK TO BATHROOM FOR VOID, THEN AT 0300 WHEN AWAKE FOR MOD SOFT BM. 3 TIMES IN THE LAST HALF HOUR HE HAS ASKED US TO HELP HIM COUNT HIS MONEY, REASSURED THAT HE SAFELY REST AND GO BACK TO SLEEP.
[2020-04-17 05:55] LABS: ALBUMIN 3.2 g/dL (3.4-5.0); CALCIUM 8.4 mg/dL (8.5-10.1); CREATININE 1.4 mg/dL (0.7-1.3); POTASSIUM 4.8 mmol/L (3.5-5.1); TOTAL BILIRUBIN 0.6 mg/dL (0.2-1.0)
[2020-04-17 06:14] LABS: HEMATOCRIT 33.7 % (42.0-52.0); HEMOGLOBIN 10.8 gm/dL (14.0-18.0); MCH 27.1 pg (26.0-34.0); MCV 84.7 fL (80.0-100.0); RBC 3.98 mil/uL (4.50-6.00); RDW 20.6 % (10.5-14.5); WBC 7.3 thou/uL (4.0-11.0)
[2020-04-17 08:40] VITALS: BP 137/95
--- NOTE | 2020-04-17 15:19 | NUR ---
UPON INITIAL APPROACH THIS AM OBSERVED TO BE MILDLY AGITATED-WHEELING SELF RAPIPDLY AROUND UNIT IN WC-WEARING VELCOR LAP BELT WHICH HE DISPLAYS THE ABILITY TO REMOVE UPON SEVERAL OCCASSIONS THIS SHIFT. EXIT SEEKING AND ARGUMENTATIVE WITH STAFF PRIOR TO BREAKFAST GOING THROUGH CLOSED UNIT DOORS X 2 WITHIN 20 MINUTES WAS RESISTIVE WITH STAFF RETURNING HIM TO UNIT INSISITING THAT AND MITHER WERE WAITING FOR HIM OR THAT HE HAD TO GO "CHECK ON THE CLOTHES" DID BECOME SLIGHTLY MORE DIRECTABLE AFTER BREAKFAST AND AM MEDS-CONTINUES INTRUSIVE FOLLOWING STAFF INTO PEERS ROOMS-BUT IS DIRECTABLE. AT APPROX 1500 NOTED TO BECOME MORE SUSPICIOUS,CONFUSED-THINKS A WOMAN ON THE UNIT IS "A CUSTOMER" AND REPEATADLY ENTERS HER ROOM-BECOMES AGITATED WITH ATTEMPTS TO REDIRECT-OFFERED FOOD/FLUIDS/TOIILETED X2-PROVIDED DIVERSONAL ACTIVITIES,1;1 TIME WITH VARIOUS [id number] IN HALLWAYS X 5-10 MINUTES BUT REMAINS SUSPICIOUS ACCUSING STAFF OF "BEING MAD AND TRYING TO RUIN MY SELL" ALSO TALKING TO UNSEEN OTHERS IN CHAIRS IN DAYROOM AREA. HALDOL 2 MG GIVEN IM IN LVG WITH MINIMAL RESISTANCE. AMBULATED IN HALLWAYS FOR APPROX 10 MORE MINUTES BEFORE ASSISTED TO WC-CURRENTLY SITTING QUIETLY IN DAYROOM WATCHING FOOTBALL GAME.
[2020-04-17 19:57] VITALS: BP 114/56
--- NOTE | 2020-04-18 05:12 | NUR ---
Patient is alert but confused and wanders a lot with his wheelchair. He is always exit seeking because he believes he works here or is just here to visit and has his car parked outside, which he has to drive home. Patient is easily redirectable. He has clear speech, but hos trend of thought and discission is mostly incoherent with current situation or difficult for him to actually express what he needs. He spent almost half the shift, wandering and hanging with staff at the nurses station, before being helped into his bed.
--- NOTE | 2020-04-18 13:12 | NUR ---
PT ALERT TO SELF. VSS. PT DENIES PAIN/SOA. PT TOLERATES MEDS AND MEALS. PT UP IN WC WITH ASSIST OF ONE. PT PROGRESSING TOWRADS POC GOALS.
[2020-04-18 17:11] VITALS: BP 130/69
[2020-04-18 20:59] VITALS: BP 135/60
--- NOTE | 2020-04-19 05:37 | NUR ---
Patient is alert but confused, with possible orientation to self. He wanders in his wheelchair around the floor anf holds incoherent conversation with staff that is not related to actual situation. He does carry out some coherent conversations and is able to answer some simple questions and follow some simple commads. He was compliant with all his night time medications.
[2020-04-19 09:41] VITALS: BP 155/77
--- NOTE | 2020-04-19 11:22 | NUR ---
WOUND CARE F/U; COOPERATIVE BUT CONFUSED, COCCYX WOUND HEALING, NO S/S INFECTION, NO DRAINAGE, DRY SKIN PRESENT AND PINK VIABLE TISSUE, STILL INCONT AT TIMES, LOW AIR LOSS PUMP REMAINS ON BED AND HAS GEL CUSHION IN W/C, SEE PROCESS INTERVENTION FOR WOUND DETAILS RECOMMENDATIONS; CONT ZGUARD BETTY SINCE PT HAS SUCH A BONY PROMINENCE, AND INCONT, CONT LOW AIR LOSS TO BED, ENCOURAGE TO NOT SIT LONG PERIODS, PRESSURE RELIEF AND OFF LOADING
--- NOTE | 2020-04-19 12:28 | NUR ---
ASSUMED CARE AT 0700. PT HAD AN UNEVENTFUL NIGHT AND SLEPT FAIRLY WELL PER REPORT. DENIES ANY PAIN. PT IS CALM AND COOPERATIVE EARLIER TODAY AND DAY GO BY SHOWING MORE SIGNS OF CONFUSION AND IS IMPULSIVE. PT EASILY REORIENTATED AND WILL CONT TO MONITOR. PARTICIPATING IN THERAPY. HAD COUPLE OF BOWEL MOVEMENTS TODAY. CONT TO MONITOR.
[2020-04-19 20:05] VITALS: BP 116/58
--- NOTE | 2020-04-20 07:15 | NUR ---
ASSUMED CARE OF PT AT 2100. PT IS A&OX1, IMPULSIVE AND CONFUSED. PT ASLEEP UNTIL 0100. AND WAS UNABLE TO FALL ASLEEP AFTER. PT BECAME AGITATED AT 0430 AND WAS ADMINISTERED HALDOL PO WITH LITTLE EFFECT. VITAL SIGNS STABLE. FALL PRECAUTIONS IN PLACE AND NURSING WILL CONTINUE TO MONITOR.
[2020-04-20 08:37] VITALS: BP 139/69
--- NOTE | 2020-04-20 10:32 | NUR ---
ASSUMED CARE AT 0700. PATIENT IS ALERT TO PERSON ONLY. PATIENT IS VERY CONFUSED. PATIENT PARKER'S, TOURING PRODUCTION MANAGER ARE EQUAL. LUNGS ARE CLEAR AND DEMINISHED. ABD IS SOFT WITH BSX4. UP TO THE BATHROOM WITH GAITBELT AND WALKER TO VOID AND HAVE BM. UP WITH WALKER WITH P.T. IN HALLWAY. FALL AND SAFETY PROTOCOLS IN PLACE. DENIES PAIN. CONTINUES TO PROGRESS TOWARDS D/C GOALS. UP TO THE DINING ROOM FOR MEALS WITH S.T. AND VITASTIM. MEDS CONTINUE TO BE CRUSHED IN APPLESAUCE. WILL CONTINUE TO MONITER.
[2020-04-20 11:22] VITALS: BP 100/48
--- NOTE | 2020-04-20 13:36 | NUR ---
team meeting, reccommendation: cont to look for memory care ltc facility. [place] medic[place]. insurance had denied [place] on.
[2020-04-20 20:20] VITALS: BP 102/52
[2020-04-21 10:20] VITALS: BP 124/66
--- NOTE | 2020-04-21 11:50 | NUR ---
Care transferred to Michelle BECERRIL after giving report. X-Ray of right hand to be done around 1330. Patient hears voices in the [place] thinking it is his . He was reoriented to the note on the board that his cannot visit on Sunday and would be available after 6 pm to be reached by phone. He tolerated his breakfast and lunch well.
--- NOTE | 2020-04-21 12:17 | NUR ---
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 Remains confused and impulsive. Wanders around unit in wheelchair. Appetite continues to be extremely good with po 75-100% of meals, 100% supplements (ensure pudding/magic cup TID). Coccyx wound healing per wound care. Meds/labs reviewed. Multiple requests for new weight on pt as no weight obtained since 03/20. 137# at that time which was down from UBW of 146#. Would suspect favorable gain with excellent po. Change to low nutrition risk.
--- NOTE | 2020-04-21 14:16 | NUR ---
SPOKE WITH ALLISON IN ADM AT [facility] NEEDING CLINICAL UPDATE. I FAXED CLINICAL UPDATE AND RECEIVED CONFIRMATION. DP TO FOLLOW.
--- NOTE | 2020-04-21 15:01 | NUR ---
ASSUMED CARES AT 0700. PT AWAKE, ORIENTED TO PERSON ONLY, FORGETFUL AND CONFUSED. C/O MILD RIGHT THUMB PAIN, THUMB SWOLLEN, XRAY ORDERED (SEE IMAGING FOR RESULTS). VITALS REMAIN STABLE. PT SLEEPY AFTER THERAPY THIS AM AND AFTER LUNCH, WOKE UP BRIEFLY FOR LUNCH AND THEN SLEPT RIGHT AFTER. SACRAL WOUND CLEANED AND Z-GUARD APPLIED. PT UP WITH 1 MIN ASSIST, GB AND WALKER AND TOLERATED WELL. FREQ. VISUAL CHECKS. CALL LIGHT WITH REACH. FALL PRECAUTIONS IN PLACE.
[2020-04-21 20:19] VITALS: BP 102/53
--- NOTE | 2020-04-22 03:01 | NUR ---
ASSESSMENT: PT WAS SLEEPING DURING THE EARLIER PART OF THIS SHIFT. PT DID NOT TAKE HIS 2100 SCHEDULED MEDS R/T NOT STAYING AWAKE LONG ENOUGH. VSS, AFEBRILE. PT DID AROUSE WITH VERBAL STIMULI AND STATED THAT HE FELT "OK". LATER PT FULLY AWAKEN WITH WANTING TO HAVE A BM. UP TO BR WITH GB, WALKER.
--- NOTE | 2020-04-22 11:34 | NUR ---
WOUND CARE F/U; INPATIENT WOUND CARE WILL SIGN OFF. THE COCCYX ARE IS HEALED. THE PATIENT IS ABULATORY. THE PATIENT UNDERSTANDS PERVENTATIVE MEASURES WHICH WE DISCUSSED AND HE ACCURATLY VERBALIZED HIS UNDERSTANDING. DISCUSSED WITH JERRICA
--- NOTE | 2020-04-22 11:58 | NUR ---
referral to be sent to [facility] in [place].
[2020-04-22 12:05] LABS: HEMATOCRIT 34.7 % (42.0-52.0); HEMOGLOBIN 10.9 gm/dL (14.0-18.0); MCH 26.9 pg (26.0-34.0); MCHC 31.4 g/dL (28.0-37.0); MCV 85.7 fL (80.0-100.0); RBC 4.05 mil/uL (4.50-6.00); RDW 19.6 % (10.5-14.5); WBC 7.4 thou/uL (4.0-11.0)
[2020-04-22 12:16] LABS: CALCIUM 8.4 mg/dL (8.5-10.1); CREATININE 1.4 mg/dL (0.7-1.3); POTASSIUM 3.6 mmol/L (3.5-5.1); URIC ACID* 3.3 mg/dL (3.5-7.2)
--- NOTE | 2020-04-22 14:31 | NUR ---
ASSUMED CARES AT 0700. PT AWAKE, ORIENTED TO PERSON AND SOMETIMES SITUATION, FORGETFUL AND CONFUSED. VITALS REMAIN STABLE. PT C/O NECK, LEFT SHOULDER AND RIGHT THUMB PAINS, UNABLE TO ACCURATELY ASSESS SEVERITY R/T PT'S CONFUSION. WILL CONTINUE TO MONITOR. ASPIRATION PRECAUTIONS MAINTAINED, PT REMAINS ON NECTAR THICK FLUIDS AND TOLERATED WELL. ON GROUND DIET TODAY AND TOLERATED WELL. UP WITH 1 MIN-SBA, GB AND WALKER. NAPING AFTER LUNCH. FREQUENT VISUAL CHECKS. CALL LIGHT WITHIN REACH. FALL PRECAUTIONS IN PLACE
--- NOTE | 2020-04-22 16:16 | NUR ---
jose with med assist visited with anali today rt needed [place] paper work signed. juanita dhaliwal is going to come and eval anali tomorrow for ltc. rosie passed on information to ryan.
--- NOTE | 2020-04-22 16:18 | NUR ---
FAXED REFERRAL TO [facility] SPOKE WITH BARBIE IN ADM SHE RECEIVED REFERRAL AND WILL HAVE DON REVIEW SHE WILL DO A BEDSIDE VISIT TOMORROW MORNING AND THEN THEY WILL DECIDE IF THEY CAN ACCEPT. UNIT NOTIFIED OF VISIT BY ADM LIASON FROM [facility].
[2020-04-22 20:20] VITALS: BP 108/56
--- NOTE | 2020-04-23 01:13 | NUR ---
TO TOILET WITH SBA FOR VOID AND FLATUS. UP IN WC BUT READY TO GO TO BED AT 1930, AGREED TO WAIT LONG ENOUGH FOR ME TO CRUSH HIS MEDS AND PUT THEM IN APPLESAUCE WHILE HE WAS STILL SITTING UP. EXPLAINED TO HIM THAT WE ARE STARTING HIM ON DEXAMETHASONE IN ORDER TO CUT DOWN THE SWELLING AND PAIN IN HS THUMB, STATES HIS APPRECIATION. TO BED WITH MIN ASSIST TO TAKE 2 STEPS FROM LOCKED W/C TO BED. INSISTED ON KEEPING BRIEF AND PANTS ON, Z-GUARD TO SACRUM HELD WHEN STANDING UP AFTER USING BATHROOM BECAUSE SACRAL WOUND APPEARS HEALED AND UNSEEN AMONGST WRINKLES.
[2020-04-23 08:00] VITALS: BP 143/69
--- NOTE | 2020-04-23 11:04 | NUR ---
cm received message from yesterday evening that she would like referral sent to [facility] because they are allowing visitor. referral to be sent eve [place] visited with anali up on acute rehab, they request nursing notes and have clinical accepted. they need bank statements and pending [place] med[place] appy. cm passed on information to ryan who really wants him closer and some where she can visit, she stated scared he will go down hill, she said just sad and heartbroken over this, trying to do things where i wont lose him, but thank you per ryan. cm active support and education that with covid time right now, but have to go to other facility then transfer closer to home when covid comes down. will cont following as needed for dc needs.
--- NOTE | 2020-04-23 15:20 | NUR ---
PATIENT NOTED SELF PROPELING IN [place] BACK AND FORTH. PATIENT TALKING WITH ANYONE HE CAN FIND IN THE [place]. PATIENT IS CALM AND COOPERATIVE. PATIENT PLEASANTLY CONFUSED.
--- NOTE | 2020-04-23 18:32 | NUR ---
PATIENT CONTINUES TO PROPELL MARISELA TENORIO. DAUGHTER HERE VISITING. PATIENT IS PLEASANTLY CONFUSED.
[2020-04-23 21:40] VITALS: BP 113/57
--- NOTE | 2020-04-24 02:34 | NUR ---
RIGHT THUMB, NECK, AND BACK ARE ALL FEELING BETTER THIS SHIFT. 2 VERY LOOSE STOOLS CONTINENTLY, ALSO CONTINENT OF URINE AND CALLING ME BY MOTIONING ME TO COME TO ROOM WITH RARE USE OF CALL LIGHT.
[2020-04-24 07:21] VITALS: BP 151/86
--- NOTE | 2020-04-24 10:44 | NUR ---
ASSUMED CARE AT 0700. PATIENT IS ALERT AND ORIENTED TO SELF. PATIENT PARKER'S, DIE BARBER ARE EQUAL. LUNGS ARE CLEAR AND DEMINISHED. ABD IS SOFT WITH BSX4. UP IN THE W/C TO DINING ROOM FOR MEALS. PATIENT CONFUSED AND COMBATIVE. MEDICATED WITH PRN IM. FALL AND SAFETY PROTOCOLS IN PLACE. DENIES PAIN AT THIS TIME. CONTINUES TO WORK WITH THERAPY. WILL CONTINUE TO MONITIER.
[2020-04-24 23:05] VITALS: BP 116/60
--- NOTE | 2020-04-25 03:42 | NUR ---
PT BEEN IN BED SLEEPING SINCE THE START OF SHIFT. PATIENT WAS ABLE TO TAKE HIS MEDS WITHOUT ANY TROUBLE. HE JUST DID NOT WANT TO BE BOTHERED. VITALS STABLE. AFEBRILE. ROOM AIR WITH NO ISSUES.FALL PREC IN PLACE.
[2020-04-25 11:23] LABS: ABSOLUTE NEUTROPHILS 4.9 thou/uL (1.4-8.2); HEMATOCRIT 31.5 % (42.0-52.0); HEMOGLOBIN 10.1 gm/dL (14.0-18.0); MCHC 31.9 g/dL (28.0-37.0); MCV 84.7 fL (80.0-100.0); MONOCYTES 2.8 % (1.0-8.0); PLATELET COUNT 176 thou/uL (150-400); POLYS 90.2 % (36.0-66.0); RBC 3.72 mil/uL (4.50-6.00); RDW 19.8 % (10.5-14.5); WBC 5.4 thou/uL (4.0-11.0)
[2020-04-25 11:38] LABS: ALBUMIN 2.9 g/dL (3.4-5.0); CALCIUM 8.1 mg/dL (8.5-10.1); CREATININE 1.3 mg/dL (0.7-1.3); MAGNESIUM 2.3 mg/dL (1.8-2.4); TOTAL BILIRUBIN 0.4 mg/dL (0.2-1.0); TOTAL PROTEIN 6.6 g/dL (6.4-8.2)
[2020-04-25 12:35] VITALS: BP 141/74
--- NOTE | 2020-04-25 18:50 | NUR ---
PATIENT CARE ASSUMED AT 0700 - PATIENT ALERT AND ORIENTED 1-2. CONFUSED AT TIMES. FALL RISK NEEDS MON ITORING. ASSISTANCE AND GUIDANCE WHEN USING BATHROOM - AMBULATES WITH WALKER. TOLERATED MEDICATIONS WITH WATER ONLY AND SWALLOWED ONE PILL AT A TIME. RESISTANT TO LACTULOSE- NEEDS ENCOURAGEMENT.
[2020-04-25 20:00] VITALS: BP 119/65
--- NOTE | 2020-04-26 05:00 | NUR ---
Assumed care on 04/25/20 @ 19:30, Alert, oriented x 1-2, high fall risk, must use gait belt when ambulating or transferring to the toilet. Impulsive and does not have awareness of own safety limitations. Able to take meds crushed in applesauce with nectar thick water. Reported that he likes the taste of lemon flavored nectar thick water. Slept well, in bed. VSS, HRRR, Lung sounds CTA bilat, ABD Normoactive x 4Q. Will continue to monitor as per unit protocol for safety and comfort.
[2020-04-26 08:00] VITALS: BP 126/60
--- NOTE | 2020-04-26 16:09 | NUR ---
cm checked with ryan on bank statements to send to facility that have requested. not yet hopeful this week per ryan.
--- NOTE | 2020-04-26 16:10 | NUR ---
ASSUMED CARE AT 0700. PATIENT IS ALERT AND ORIENTED X1 TO PERSON. PATIENT PARKER, MANAGER USER EXPERIENCE ARE EQUAL. LUNGS ARE CLEAR AND DEMINISHED. ABD IS SOFT WITH BSX4. PATIENT IS UP WITH GAIT BELT AND WALKER TO BR TO HAVE 3 BM'S TODAY. PATIENT VOIDED X3 JOSE COLORED URINE. UP IN W/C TO DINING ROOM FOR MEALS. FALL AND SAFETY PROTOCOLS IN PLACE. DENIES PAIN AT THIS TIME. CONTINUES TO PROGESS TOWARDS D/C GOALS. WILL CONTINUE TO MONITER. UP IN W/C ROLLING AROUND THE UNIT.
[2020-04-26 21:03] VITALS: BP 128/61
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
[2020-04-27 09:28] VITALS: BP 132/75
--- NOTE | 2020-04-27 12:51 | NUR ---
team meetimg, reccommendation: diet puree with nectar, possible will be up to mech soft with nectar thick. cont to work on ltc memory placement
--- NOTE | 2020-04-27 15:04 | NUR ---
ASSUMED CARE AT 0700. PT HAD AN UNEVENTFUL NIGHT AND SLEPT FAIRLY GOOD. DENIES ANY PAIN. PARTICIPATING AND PROGRESSING WITH THERAPY. CM STILL WORKING TO GET PLACEMENT TO LTC OR MEMORY CARE. APPETITE GOOD. HAD COUPLE OF LOOSE STOOLS TODAY. PT IS ON LACTULOSE. WILL CONT TO MONITOR. CALL LIGHT WITHIN REACH.
[2020-04-27 20:05] VITALS: BP 102/49
[2020-04-28 08:00] VITALS: BP 113/61
--- NOTE | 2020-04-28 12:48 | NUR ---
ASSUMED CARE AT 0700. PATIENT IS ALERT AND ORIENTED X1. SOME CONFUSION NOTED. PATIENT PARKER'S, RED HAT LINUX ENGINEER ARE EQUAL. LUNGS ARE CLEAR AND DEMINISHED. ABD IS SOFT WITH BSX4. PATIENT IS UP IN W/C. UP TO THE DINING ROOM WITH GAIT BELT FOR MEALS. S.T. HERE TO DO VITASTIM. FALL AND SAFETY PROTOCOLS IN PLACE. DENIES PAIN AT THIS TIME. CONTINUES TO PROGRES TOWARDS D/C GOALS. WILL CONTINUE TO MONITER.
--- NOTE | 2020-04-28 13:44 | NUR ---
Nutrition: pt continues on rehab unit eating well, 75-100% most meals. 100% of supplements TID. Continues on modified diet and NMES per ST. Possible diet upgrade anticipated soon. BM 04/28. Weights stable. Low nutrition risk.
[2020-04-28 19:53] VITALS: BP 92/43
--- NOTE | 2020-04-29 01:57 | NUR ---
UP IN CHAIR UNTIL 2200 LAST EVENING. UP TO TOILET FOR VOID AND BM CONTINENTLY BEFORE GOING TO BED AND LYING SLIGHTLY ON HIS RIGHT SIDE AT 2300. QUIET SINCE THEN. REMAINS IN ROOM 514 FOR FREQUENT OBSERVATION WITH BED ALARM ON.
[2020-04-29 08:00] VITALS: BP 130/66
--- NOTE | 2020-04-29 14:33 | NUR ---
cm notified by aanli ryan that this evening 630 notary coming for financial poa name reba, no bank statements have come yet. cm passed on information to 5n [employer] quarry supervisor and bedside nurse. cm updated ryan, visitor rules, not past 5pm. cm sent message to [facility] to see if know how [place] ketty is going. will cont following as needed for dc needs.
[2020-04-29 20:16] VITALS: BP 112/60
--- NOTE | 2020-04-30 02:25 | NUR ---
REQUESTED TO GO TO BED SOON AFTER FAUSTO LEFT LAST EVENING AND HAS BEEN QUIETLY IN BED SINCE THEN. FREQUENT OBSERVATION IN FULL VIEW OF NURSES STATION.
[2020-04-30 08:00] VITALS: BP 130/78
--- NOTE | 2020-04-30 08:31 | NUR ---
al grimaldo came last evening, ryan sent cm message stated re could not notarize [facility] in [place] and he is madhuri grimaldo and asked for the katheryn here at [facility] to notarize her [facility] paperwork. cm re-education that the hospital will not notarize anything that is for financials. ryan also said no bank statements yet. will cont following as needed for dc needs. memory care ltc.
--- NOTE | 2020-04-30 13:34 | NUR ---
ASSUMED CARE AT 0700. PT HAD AN UNEVENTFUL NIGHT AND SLEPT FAIRLY WELL. HE REPORTED PAIN IN HIS LEFT SHOULDER AT 9/10, RADIATING TO HIS LEFT HAND. PAIN IS PRODUCIBLE WITH TACTILE STIMULI. DENIES ANY CHEST PAIN OR SHORT OF AIR. MEDICATED WITH TYLENOL AND NATI SHOW DESIGN SUPERVISOR NOTED. NO ORDERS FOR TOPICAL OINTMENT FOR NOW. RELIEF OBTAINED AFTER TYLENOL. PT PARTICIPATING IN THERAPY AND PROGRESSING TOWARDS GOAL. APPETITE GOOD. CM WORKING FOR LTC OR MEMORY CARE PLACEMENT. CONT TO MONITOR.
[2020-04-30 19:49] VITALS: BP 98/49
--- NOTE | 2020-05-01 05:03 | NUR ---
Richard is alert and oriented x1 to 2, with some noticeable confusion and quite a bit of incoherence with speech and language. He is still able to make his needs known to staff. He refuses any pain or nausea and complains of a little constipation/chest etienne. He is currently resting in his bed, breathing normally with eyes closed.
[2020-05-01 08:34] VITALS: BP 149/66
--- NOTE | 2020-05-01 15:35 | NUR ---
ASSUMED CARE AT 0700. PT HAD AN UNEVENTFUL NIGHT AND SLEPT FAIRLY WELL. DENIES ANY SHOULDER PAIN. STILL COMPLAINS OF INDIGESTION DESPITE ON PEPCID. TUMS GIVEN PRN WITH SOME RELIEF. HAD COUPLE OF BM TODAY. APPETITE GOOD. PARTICIPATING WITH THERAPY. NO SIGNS OF IMPULSIVE OR CONFUSION. CONT TO MONITOR.
[2020-05-01 20:06] VITALS: BP 91/47
[2020-05-01 20:16] LABS: ANION GAP 9 mmol/L (7-16); BUN 31 mg/dL (7-18); CALCIUM 7.9 mg/dL (8.5-10.1); CHLORIDE 109 mmol/L (98-107); CO2 23 mmol/L (21-32); CREATININE 1.8 mg/dL (0.7-1.3); GLUCOSE 120 mg/dL (74-106); POTASSIUM 4.6 mmol/L (3.5-5.1); SODIUM 141 mmol/L (136-145); TROPONIN-I <0.06 ng/mL (<0.06)
--- NOTE | 2020-05-02 05:29 | NUR ---
Richard is alert and oriented x2, with more frequent confusion an incoherence in following a discussion and answering appropriately. Voice is clear, he interacts pleasantly with staff and is able to make his needs known. Patient has been complaining of issues with chest discomfort and arm/shoulder distress. Nurse Practioner was informed by day shift nurse Madhavi, and orders were given for some laboratory tests to rule out any cardiac and/or vascular issues.
[2020-05-02 07:22] VITALS: BP 110/60
--- NOTE | 2020-05-02 10:11 | NUR ---
ASSUMED CARE AT 0700. PATIENT IS ALERT AND ORIENTED X4. PATIENT PARKER'S, EMERGENCY VEHICLE OPERATIONS INSTRUCTOR ARE EQUAL. LUNGS ARE CLEAR. ABD IS SOFT WITH BSX4. PATIENT HAS PEG TUBE WITH 50CC FLUSHES Q 6. PATIENT IS MOD/I IN ROOM. TRACH IS OUT DRESSING IN PLACE. FALL AND SAFETY PROTOCOLS IN PLACE. DENIES PAIN. CONTINUES TO PROGRESS SLOWLY TOWARDS D/C GOALS. PATIENT IS UP TO THE BATHROOM TO VOID JOSE COLORED URINE. FAMILY WILL BRING IN FOOD FOR PATIENT R/T HIS EPISCOPALIAN/ AND EATING ONLY KOSHER FOODS. WILL CONTINUE TO MONITER.
--- NOTE | 2020-05-02 10:31 | NUR ---
ASSUMED CARE AT 0700. PATIENT IS ALERT TO PERSON ONLY. PATIENT PARKER'S, SPD TECH ARE EQUAL. LUNGS ARE CLEAR. ABD IS SOFT WITH BSX4. PATIENT HAD LARGE BM, BROWN FORMED. BP MEDS HELD TODAY. BP LOW. PATIENT UP WITH ONUR OF 1 STAFF AND GAIT BELT. OUT TO THE DINING ROOM FOR BREAKFAST. EKG COMPLETED. IN BED WITH SR UP. PLAN IV NS 500CC BOLUS. FALL AND SAFETY PROTOCOLS IN PLACE. C/O PAIN IN HIS SHOULDER. MEDICATED WITH PRN PAIN MED. CONTINUES TO PROGRESS SLOWLY TOWARDS D/C GOALS. WILL CONTINUE TO MONITER.
--- NOTE | 2020-05-02 11:20 | EKG ---
[facility] [place] [address] ELECTROCARDIOGRAM REPORT Name: VIRA NOVAK Room #: 514- ADM IN M.R.#: [id number] Admission: 03/20/20 Attend Phys: Jony Kendrick MD Discharge: Date of : 39 Report #: [id number] THIS REPORT FOR: cc: Tod Parker MD, Stanley P. MD Couchonnal, Luis F. MD ~ THIS REPORT FOR: //name// [facility] Test Date: 2020-05-02 Test Time: 09:06:41 Pat Name: VIRA NOVAK Department: Room: 514 P Gender: M Legal Billing Analyst: AMANDA : 1935 Requested By: Shamika Costa Order Number: [id number] MD: Crow Batres Measurements Intervals [place] Rate: 61 P: TN: QRS: 123 QRSD: 152 T: 40 QT: 471 QTc: 475 Interpretive Statements Afib/flut and V-paced complexes No further rhythm analysis attempted due to paced rhythm Right bundle branch block Compared to ECG 04/06/2020 18:48:44 Right bundle-branch block now present Electronically Signed On 05-02-2020 11:19:56 CDT by Crow Batres [email or web address] <ELECTRONICALLY SIGNED> By: Crow Batres MD 05/02/20 1119 5 5 Crow Batres MD /EPI
[2020-05-02 16:00] VITALS: BP 113/56; BP 166/91
[2020-05-02 20:04] VITALS: BP 100/50
[2020-05-03 05:46] LABS: CALCIUM 8.1 mg/dL (8.5-10.1); CREATININE 1.7 mg/dL (0.7-1.3); POTASSIUM 4.6 mmol/L (3.5-5.1)
[2020-05-03 07:41] VITALS: BP 122/68
[2020-05-03 12:46] LABS: HEMATOCRIT 34.5 % (42.0-52.0); HEMOGLOBIN 10.7 gm/dL (14.0-18.0); MCH 26.5 pg (26.0-34.0); MCV 85.5 fL (80.0-100.0); RBC 4.03 mil/uL (4.50-6.00); RDW 20.4 % (10.5-14.5); WBC 5.5 thou/uL (4.0-11.0)
--- NOTE | 2020-05-03 19:36 | NUR ---
ASSUMED CARE AT 0700. PT REPORTED SLEPT FAIRLY WELL. DENIES ANY INCREASE IN HIS EPIGASTRIC AREA AND IS MORE MANAGEABLE AND CONTROLLED WITH MEDS. PT WAS SENT TO NUCLEAR MED FOR LUNG SCAN, RESULT WAS NEGATIVE. PT IS PARTICIPATING WELL IN THERAPY BUT NOTED MORE CONFUSION AND HAS BEEN GETTING UP MORE FREQUENTLY FROM THE CHAIR. FREQUENT REORIENTATION GIVEN. SPOKE TO THERAPY REGARDING MOD I STATUS BUT WAS DENIED DUE TO HIS COGNITION. NO COMPLAINS OF LEFT SCAPULA PAIN. CALL LIGHT WITHIN REACH, NEEDS FREQ REINFORCEMENT. CONT TO MONITOR.
[2020-05-03 20:00] VITALS: BP 129/50
--- NOTE | 2020-05-04 04:14 | NUR ---
ASSESSMENT: PT REMAIN ALERT AND ORIENT 2-3. FORGETFUL AND CONFUSED AT TIMES. EASY TO REDIRECT. PT REFUSED TO SLEEP IN BED AND SLEPT IN RECYLINER ALL NIGHT. IMPULSIVE AND DOES NOT USE CALL BUTTON FOR ASSISTANCE. UP WITH GB WITH STEADY GAIT TO BR. DID HAVE ONE BM THIS SHIFT. DENIES PAIN. REMAIN IN ISOLATION FOR HX OF C-DIFF. STOOLS FORMED AND NOT FOUL SMELLING. VSS, AFEBRILE. SLOW PROGRESS TOWARDS DC GOALS, WILL CONTINUE TO MONITOR.
--- NOTE | 2020-05-04 10:30 | NUR ---
Noted that pt is alert, and cooperative today. He was up in wc and propelling self on the unit, and both doors to the unit were open. NM went through the open door, and patient followed to the doorway, then turned his chair around and propelled to the nurse's station to request that someone please shut the door, as it is not supposed to be left open. Pt has not attempted to leave the nursing unit for any reason, despite his request to be discharged from the hospital and back to his home with his and son today. Pt is much more oriented, and able to recall events from the previous day with moderate accuracy.
--- NOTE | 2020-05-04 13:23 | NUR ---
got message from who stated that bank statement where emailed and would like to have him sent closer to home. education that have to look at what facility have beds open for ltc vs memory ltc. he is on thin liquid. no dme. possible going home with intermit frequent, supervisorn and total assistance with bills and pills. no driving. doors open to [facility] and not trying to leave hh with ( pt, ot, st, nursing and sw ) vs placement as soon as possible. passed on that mo notary will be her on anoop phan. try for dc on
--- NOTE | 2020-05-04 20:02 | NUR ---
0700 ASSUMED CARE OF PATIENT, PATIENT SITTING IN CHAIR AT THAT TIME. PATIENT A&O X2, AMB WITH STEADY GAIT. MEDICATIONS TAKEN CRUSHED WITHOUT DIFFICULTY. 10 AM PATIENT TO SWALLOW STUDY. AFTER TEST PATIENT WASCHANGE TO [facility] SOFT GROUND WITH THIN LIQUIDS. PATIENT INTRUSIVE AT TIMES. PATIENT REQUESTING FOR SL TO COME OUT, PATIENT SPOKE WITH NATI. NO ORDER TO DC AT THIS TIME. IN ROOM THIS EVENING. PATIENT SLEEPING IN CHAIR.
[2020-05-04 20:45] VITALS: BP 108/70
--- NOTE | 2020-05-05 04:19 | NUR ---
HAS BEEN CONTINENT THIS SHIFT, LARGE VOID NOW AFTER SLEEPING SINCE MIDNIGHT. WAS UP 3 ADDITIONAL TIMES LAST EVENING FOR CONTINENT URINES AND ONE BM.
[2020-05-05 08:00] VITALS: BP 93/46
--- NOTE | 2020-05-05 09:15 | NUR ---
cm picked up bank statements from pt chart. cm provided it to med [employer]. cm team sent referral to ltc op centers. will cont following as needed for dc needs.
--- NOTE | 2020-05-05 13:17 | NUR ---
Nutrition followup: pt continues to eat well, 75-100% of meals, 100% of supplements TID. Modified diet/NMES per ST, upgraded. BM 05/04. Latest weight up 1# from initial weight. Planned D/C soon. Low nutrition risk.
--- NOTE | 2020-05-05 17:25 | NUR ---
FAXED REFERRAL TO [facility] OP SPOKE WITH CYNDI IN ADM SHE RECEIVED RFERRAL AND THEY ARE ON HOLD RIGHT NOW FOR NEW PT'S DUE TO COVID SHE WILL KNOW SOON WHEN THEY WILL BE ABLE TO TAKE PT'S.
--- NOTE | 2020-05-05 19:49 | NUR ---
ASSUMED CARE OF PT AT 0700. PT IS A&OX2-3 AND VITAL SIGNS ARE STABLE. PT DENIES PAIN AND PARTICIPATED IN SCHEDULED THERAPIES. IV CLOTTED AND WAS REMOVED BY NURSING. PT UP FOR ALL MEALS. FALL PRECAUTIONS IN PLACE AND NURSING WILL CONTINUE TO MONITOR.
[2020-05-05 19:50] VITALS: BP 106/50
--- NOTE | 2020-05-06 01:58 | NUR ---
UP TO TOILET WITH GAIT BELT AND CONTACT GUARD ASSIST BARELY NEEDED. 4 VOIDS AND ONE SMALL BM SO FAR THIS SHIFT; HAS USED CALL LIGHT ONE OF 5 TIMES, BUT 3 OF THE OTHER 4 HE HAS WAITED BY ALARM FOR US TO GET THERE AND ASSIST HIM. 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 NOT COMBATIVE OR AGITATED TONIGHT
[2020-05-06 08:00] VITALS: BP 101/43
--- NOTE | 2020-05-06 09:00 | NUR ---
PT UP IN ROOM THIS AM WITH GAIT BELT. PT HAS STEADY GAIT. PT SHAVING AND COMMENTED HE HATED THESE BLUE RAZORS. PT ABLE TO STAND UP AT SINK TO COMB HAIR AND SHAVE. PT TAKES MEDS IN APPLESAUCE AND TOLERATES WELL. ASSISTED PT PUTTING ON A SHIRT THIS AM, PT HAS X2 SHIRTS ON. PT USES W/C WHEN OUT IN [place].
--- NOTE | 2020-05-06 11:11 | NUR ---
[facility] called back after referral was sent again per ryan request. per ayo left message stating with out [place] ketty they will not review. cm sent message to ryan, asking for who want for hh in home for tomorrow if ltc facility has not accepted. referral sent to raad of op to review again, now that have bank statements.
[2020-05-06 14:34] LABS: HEMATOCRIT 34.4 % (42.0-52.0); HEMOGLOBIN 10.8 gm/dL (14.0-18.0); MCH 26.5 pg (26.0-34.0); MCHC 31.5 g/dL (28.0-37.0); MCV 84.3 fL (80.0-100.0); RBC 4.08 mil/uL (4.50-6.00); RDW 20.4 % (10.5-14.5); WBC 7.9 thou/uL (4.0-11.0)
[2020-05-06 14:42] LABS: CALCIUM 8.5 mg/dL (8.5-10.1); CREATININE 1.8 mg/dL (0.7-1.3); POTASSIUM 4.8 mmol/L (3.5-5.1)
--- NOTE | 2020-05-06 15:47 | NUR ---
PT HAS BEEN RESTING ON AND OFF TODAY IN RECLINER. PT GETS UP WITHOUT ASKING FOR ASSISTANCE. PT HAS STEADY GAIT WITH STAND-BY ASSIST.
--- NOTE | 2020-05-06 16:24 | NUR ---
SITTING WITH PATIENT AND HE IS UPSET WHEN PEOPLE YELL AT HIM FROM THE DESK, HE SAID IF IT WAS UP TO ME THEY WOULD BE OUT. HE WAS STANDING AT THE TIME AND HIS ALARM WAS GOING OFF. HE STATED THAT ALOT OF NURSES HERE HE GETS ALONG WITH EXCEPT THE BIG ONE THAT SITS AT THE DESK.
[2020-05-06 19:56] VITALS: BP 123/58
--- NOTE | 2020-05-07 04:09 | NUR ---
assumed care approx 1899 evening 05/06. pt sitting up in recliner at change of shift, pleasant and cooperative. pt not impulsive and stated he was looking forward to a change of scenery. pt took hs meds crushed in applesauce tolerating well. pt has been sleeping well this night, no problems. bed alarm on and call light in reach. will continue to monitor.
[2020-05-07] MEDS ORDERED: ZYPREXA 5 MG TAB5 M2 PO ×2 (09:58→15:06)
[2020-05-07] MEDS ORDERED: CALTRATE-600 W1 EACH PO ×2 (09:59→15:06)
[2020-05-07] MEDS ORDERED: PROTONIX 20 MG20 MG PO ×2 (09:59→15:06)
--- NOTE | 2020-05-07 10:00 | NUR ---
raad admitting roney here to visit with
[2020-05-07] MEDS ORDERED: VITAMIN D310 MC4 PO (15:06)
[2020-05-07] MEDS ORDERED: ACEROLA C500 MG PO (15:06)
[2020-05-07] MEDS ORDERED: CARVEDILOL25 MG PO (15:06)
[2020-05-07] MEDS ORDERED: A THRU Z ADVAN1 EAC1 PO (15:06)
[2020-05-07] MEDS ORDERED: CARDIZEM CD 18180 M3 PO (15:06)
[2020-05-07] MEDS ORDERED: LIPITOR10 MG PO (15:06)
[2020-05-07] MEDS ORDERED: ACETAMINOPHEN325 M1 PO (15:06)
[2020-05-07] MEDS ORDERED: PROBIOTIC1 EAC1 PO (15:06)
[2020-05-07] MEDS ORDERED: VOLTAREN GEL 1100 G2 TOP (15:06)
[2020-05-07 15:07] VITALS: BP 121/73
--- NOTE | 2020-05-07 15:15 | NUR ---
PT IS NOW GOING TO DC TO HOME WITH HH FAXED REFERRAL TO [facility] HH SPOKE WITH [facility] IN INTAKE THEY CAN ACCEPT FOR HH. FAXED DC ORDERS/SUMMARY RECEIVED CONFIRMATION AND INTAKE WILL CALL TO ARRANGE VISITS.
[2020-05-07 16:01] VITALS: BP 121/73
[2020-05-07 17:02] VITALS: BP 138/88
--- NOTE | 2020-05-07 18:00 | NUR ---
[place] [address]. PT DID NOT SLEEP WELL AND HAS BEEN TIRED TODAY. DENIES ANY PAIN. PARTICIPATED IN THERAPY AND PROGRESSING WELL. PLAN FOR DC EITHER HOME OR [facility]. PT ATE HIS MEALS AND TOLERATED HIS MEDS WHOLE IN APPLE SAUCE WITH THE ST AT BEDSIDE. LIASON FROM [facility] OF CAME IN TO [facility]. ALEXY MAHARAJ INFORMED NURSE PT WILL BE DISCHARGING HOME PT DID REQUEST FOR HOME DISCHARGE. DISCHARGE INSTRUCTIONS GIVEN TO FAUSTO () ALONG WITH EDUCATION ON [facility] DIET GIVEN BY . PT WAS DC HOME WITH HH AT 1800 AND PT WAS WHEELED DOWN TO THE CAR WITH HOSP PERSONNEL. PT WAS UP AD DURGA AND WALKED TO HIS CAR.
--- NOTE | 2020-05-10 11:56 | NUR ---
message from isela gonzáles, admission stated still will not review with out [place] ket[place]. cm called back left message letting her know she can contact ryan rt he dc home on 06/07/20,
== END 2020-05-07 18:00 | disposition home health service (06) | DRG 91 ==
PROVIDERS: Internal Medicine; Nurse Practitioner; Nurse Practitioner Family; Psychiatry & Neurology Psychiatry; ADMIT Physical Medicine & Rehabilitation; ATTEND Physical Medicine & Rehabilitation
DX: G92 Toxic encephalopathy (principal); J96.01 Acute respiratory failure with hypoxia; I50.23 Acute on chronic systolic (congestive) heart failure; J69.0 Pneumonitis due to inhalation of food and vomit; G72.81 Critical illness myopathy; A04.72 Enterocolitis due to Clostridium difficile, not specified as recurrent; N17.9 Acute kidney failure, unspecified; E44.0 Moderate protein-calorie malnutrition; R53.81 Other malaise; I44.1 Atrioventricular block, second degree; R13.10 Dysphagia, unspecified; I25.10 Atherosclerotic heart disease of native coronary artery without angina pectoris; I25.5 Ischemic cardiomyopathy; E11.9 Type 2 diabetes mellitus without complications; E78.5 Hyperlipidemia, unspecified; Z20.828 Contact with and (suspected) exposure to other viral communicable diseases; F01.50 Vascular dementia, unspecified severity, without behavioral disturbance, psychotic disturbance, mood disturbance, and anxiety; F41.9 Anxiety disorder, unspecified; I11.0 Hypertensive heart disease with heart failure; E87.6 Hypokalemia; E83.42 Hypomagnesemia; M19.90 Unspecified osteoarthritis, unspecified site; Z95.0 Presence of cardiac pacemaker; Z88.8 Allergy status to other drugs, medicaments and biological substances; Z23 Encounter for immunization
CPT/HCPCS: 10112

== ENCOUNTER 2020-05-09 14:44 | Emergency (ER) | payer OTHER ==
[~2020-05-09] VITALS: Ht 175.3 cm; Wt 61.2 kg
[~2020-05-09 14:44] MED LIST changes: +A THRU Z ADVAN1 EAC1 PO; +ACEROLA C500 MG PO; +ACETAMINOPHEN325 M1 PO; +AKWA TEARS OIN3.5 GM OPHTHALMIC; +CALTRATE-600 W1 EACH PO; +CARDIZEM CD 18180 M3 PO; +CARVEDILOL25 MG PO; +CEPACOL SORE T1 EAC7 PO; +DEPAKOTE 250MG250 M1 PO; +DEPAKOTE500 MG PO; +ENOXAPARIN30 MG/0.3 SUBQ; +GLUCAGEN1 MG/1 ML IM; +HUMALOG100 UNIT/1 SUBQ; +IPRAT-ALBUT 0.5-3 ML INH; +LISINOPRIL10 MG PO; +LORAZEPAM 0.50.5 MG PO; +OLANZAPINE2.5 MG PO; +PEPCID20 MG PO; +PROBIOTIC1 EAC1 PO; +PROTONIX 20 MG20 MG PO; +VOLTAREN GEL 1100 G2 TOP; +ZYPREXA 5 MG TAB5 M1 PO; +ZYPREXA 5 MG TAB5 M2 PO
[2020-05-09 15:52] LABS: ABSOLUTE NEUTROPHILS 5.2 thou/uL (1.4-8.2); EOSINOPHILS 1.7 % (0.0-3.0); HEMATOCRIT 35.2 % (42.0-52.0); HEMOGLOBIN 11.3 gm/dL (14.0-18.0); LYMPHOCYTES 16.1 % (24.0-44.0); MCH 26.7 pg (26.0-34.0); MCHC 32.1 g/dL (28.0-37.0); MCV 83.3 fL (80.0-100.0); MONOCYTES 6.8 % (1.0-8.0); PLATELET COUNT 190 thou/uL (150-400); POLYS 74.4 % (36.0-66.0); RBC 4.23 mil/uL (4.50-6.00); RDW 19.8 % (10.5-14.5)
[2020-05-09 16:00] LABS: CALCIUM 8.6 mg/dL (8.5-10.1); CREATININE 2.1 mg/dL (0.7-1.3); POTASSIUM 4.9 mmol/L (3.5-5.1)
[2020-05-09 16:07] LABS: ALBUMIN 3.7 g/dL (3.4-5.0); TOTAL BILIRUBIN 0.3 mg/dL (0.2-1.0); TOTAL PROTEIN 7.9 g/dL (6.4-8.2)
[2020-05-09 16:11] LABS: ANISOCYTOSIS 1+
[2020-05-09] MEDS ORDERED: PLAVIX 75 MG TA75 MG PO (17:37)
[2020-05-09 17:40] VITALS: BP 136/73
--- NOTE | 2020-05-10 15:04 | EKG ---
[facility] [place] [address] ELECTROCARDIOGRAM REPORT Name: VIRA NOVAK [id number] Admission: 05/09/20 Attend Phys: Discharge: 05/09/20 Date of : 39 Report #: [id number] THIS REPORT FOR: cc: Tod Parker MD, Stanley P. MD Santiago, Patrick MD [facility] ~ THIS REPORT FOR: //name// [facility] ED Test Date: 2020-05-09 Test Time: 16:40:59 Pat Name: VIRA NOVAK Department: Room: Gender: Salvage Inspector: [facility] : 1935 Requested By: Mark Ndiaye Order Number: [id number] MD: Dread Rodriguez Measurements Intervals [place] Rate: 65 P: ME: QRS: 92 QRSD: 140 T: 55 QT: 447 QTc: 465 Interpretive Statements Atrial flutter with varied AV block, Right bundle branch block Anterolateral infarct, age indeterminate Baseline wander in lead(s) V2 Compared to ECG 05/02/2020 09:06:41 Atrial fibrillation no longer present Ventricular-paced complex(es) or rhythm no longer present Electronically Signed On 05-10-2020 15:04:45 REGISTERED NURSE OBSTETRICS by Dread Rodriguez [email or web address] <ELECTRONICALLY SIGNED> By: Dread Rodriguez MD, FACC 05/10/20 1504 1640 1640 Dread Rodriguez MD, FACC /EPI
== END 2020-05-09 17:40 | disposition home or self-care (01) ==
LOC: ER 14:44
PROVIDERS: Emergency Medicine
DX: R22.32 Localized swelling, mass and lump, left upper limb (principal); I10 Essential (primary) hypertension; E11.9 Type 2 diabetes mellitus without complications; E78.5 Hyperlipidemia, unspecified; K21.9 Gastro-esophageal reflux disease without esophagitis; Z95.1 Presence of aortocoronary bypass graft; Z79.899 Other long term (current) drug therapy; Z79.82 Long term (current) use of aspirin; Z88.8 Allergy status to other drugs, medicaments and biological substances

== ENCOUNTER → 2020-05-10 | Outpatient (CLI) | payer OTHER ==
[~2020-05-10] MED LIST changes: +PLAVIX 75 MG TA75 MG PO
== END ==
LOC: SJCVC 15:08
PROVIDERS: ATTEND Internal Medicine Cardiovascular Disease
DX: I25.810 Atherosclerosis of coronary artery bypass graft(s) without angina pectoris (principal); E78.5 Hyperlipidemia, unspecified; I48.0 Paroxysmal atrial fibrillation; I10 Essential (primary) hypertension; I44.2 Atrioventricular block, complete; I82.622 Acute embolism and thrombosis of deep veins of left upper extremity; I42.9 Cardiomyopathy, unspecified; Z95.0 Presence of cardiac pacemaker; Z79.899 Other long term (current) drug therapy; Z87.891 Personal history of nicotine dependence

== ENCOUNTER 2020-06-07 20:02 | Emergency (ER) | payer OTHER ==
[~2020-06-07] VITALS: Ht 175.3 cm; Wt 59.0 kg
[2020-06-07] MEDS ORDERED: PROTONIX 20 MG20 MG PO (20:39)
[2020-06-07] MEDS ORDERED: XARELTO15 MG PO (20:41)
[2020-06-07 20:54] LABS: ABSOLUTE NEUTROPHILS 4.5 thou/uL (1.4-8.2); BASOPHILS 1.1 % (0.0-2.0); EOSINOPHILS 2.4 % (0.0-3.0); HEMATOCRIT 36.3 % (42.0-52.0); HEMOGLOBIN 11.5 gm/dL (14.0-18.0); LYMPHOCYTES 15.2 % (24.0-44.0); MCH 26.3 pg (26.0-34.0); MCHC 31.7 g/dL (28.0-37.0); MONOCYTES 10.1 % (1.0-8.0); PLATELET COUNT 176 thou/uL (150-400); POLYS 71.2 % (36.0-66.0); RBC 4.37 mil/uL (4.50-6.00); RDW 18.5 % (10.5-14.5); WBC 6.3 thou/uL (4.0-11.0)
[2020-06-07 21:01] LABS: CALCIUM 9.3 mg/dL (8.5-10.1); CREATININE 1.6 mg/dL (0.7-1.3); POTASSIUM 4.5 mmol/L (3.5-5.1)
[2020-06-07 21:09] LABS: APTT 34.1 Seconds (24.5-32.8); INR 1.4; PROTIME 13.9 Seconds (9.3-11.4)
[2020-06-07 22:20] VITALS: BP 141/75
== END 2020-06-07 22:20 | disposition home or self-care (01) ==
LOC: ER 20:02
PROVIDERS: Emergency Medicine
DX: S01.01XA Laceration without foreign body of scalp, initial encounter (principal); I10 Essential (primary) hypertension; E11.9 Type 2 diabetes mellitus without complications; K21.9 Gastro-esophageal reflux disease without esophagitis; E78.5 Hyperlipidemia, unspecified; Z95.1 Presence of aortocoronary bypass graft; Z79.899 Other long term (current) drug therapy; Z88.8 Allergy status to other drugs, medicaments and biological substances; W10.9XXA Fall (on) (from) unspecified stairs and steps, initial encounter; Y93.89 Activity, other specified; Y92.89 Other specified places as the place of occurrence of the external cause; Y99.8 Other external cause status

== ENCOUNTER → 2020-06-10 | Outpatient (CLI) | payer OTHER ==
[~2020-06-10] MED LIST changes: +XARELTO15 MG PO
== END ==
LOC: SJCVC 15:18
PROVIDERS: ATTEND Internal Medicine Cardiovascular Disease
DX: I45.2 Bifascicular block (principal); I48.92 Unspecified atrial flutter; I44.2 Atrioventricular block, complete; R94.31 Abnormal electrocardiogram [ECG] [EKG]; I48.0 Paroxysmal atrial fibrillation; I25.5 Ischemic cardiomyopathy; I10 Essential (primary) hypertension; E78.5 Hyperlipidemia, unspecified; Z95.0 Presence of cardiac pacemaker; Z79.899 Other long term (current) drug therapy; Z87.891 Personal history of nicotine dependence

== ENCOUNTER → 2020-06-23 | Outpatient (CLI) | payer OTHER | LOC: SJCVCIMAG 06:27 | PROVIDERS: ATTEND Internal Medicine Cardiovascular Disease | DX: I82.602 Acute embolism and thrombosis of unspecified veins of left upper extremity (principal); I25.810 Atherosclerosis of coronary artery bypass graft(s) without angina pectoris; I48.0 Paroxysmal atrial fibrillation; I10 Essential (primary) hypertension; I44.2 Atrioventricular block, complete; I25.5 Ischemic cardiomyopathy; D68.59 Other primary thrombophilia; I82.622 Acute embolism and thrombosis of deep veins of left upper extremity; Z95.1 Presence of aortocoronary bypass graft; Z79.899 Other long term (current) drug therapy; Z87.891 Personal history of nicotine dependence ==

== ENCOUNTER 2020-07-03 07:42 | Emergency (ER) | payer OTHER ==
[~2020-07-03] VITALS: Ht 175.3 cm; Wt 61.2 kg
[2020-07-03 10:16] VITALS: BP 121/57
== END 2020-07-03 11:00 | disposition home or self-care (01) ==
LOC: ER 07:42
DX: S01.01XA Laceration without foreign body of scalp, initial encounter (principal); I10 Essential (primary) hypertension; E78.5 Hyperlipidemia, unspecified; E11.9 Type 2 diabetes mellitus without complications; K21.9 Gastro-esophageal reflux disease without esophagitis; Z98.61 Coronary angioplasty status; Z79.899 Other long term (current) drug therapy; Z88.8 Allergy status to other drugs, medicaments and biological substances; Z79.01 Long term (current) use of anticoagulants; W01.198A Fall on same level from slipping, tripping and stumbling with subsequent striking against other object, initial encounter; Y93.89 Activity, other specified; Y92.89 Other specified places as the place of occurrence of the external cause; Y99.8 Other external cause status

== ENCOUNTER → 2020-09-23 | Outpatient (CLI) | payer OTHER | LOC: SJCVCIMAG 08:08 | PROVIDERS: ATTEND Internal Medicine Cardiovascular Disease | DX: I08.3 Combined rheumatic disorders of mitral, aortic and tricuspid valves (principal); I82.612 Acute embolism and thrombosis of superficial veins of left upper extremity; M79.89 Other specified soft tissue disorders; I25.10 Atherosclerotic heart disease of native coronary artery without angina pectoris; I25.5 Ischemic cardiomyopathy; I44.2 Atrioventricular block, complete; I11.9 Hypertensive heart disease without heart failure; I48.0 Paroxysmal atrial fibrillation; E78.5 Hyperlipidemia, unspecified; Z95.1 Presence of aortocoronary bypass graft; Z95.0 Presence of cardiac pacemaker; Z88.8 Allergy status to other drugs, medicaments and biological substances; Z79.899 Other long term (current) drug therapy; Z87.891 Personal history of nicotine dependence ==

== ENCOUNTER → 2021-04-07 | Outpatient (CLI) | payer OTHER | LOC: SJCVC 10:50 | PROVIDERS: ATTEND Internal Medicine Cardiovascular Disease | DX: I48.0 Paroxysmal atrial fibrillation (principal); I25.5 Ischemic cardiomyopathy; I44.2 Atrioventricular block, complete; I82.622 Acute embolism and thrombosis of deep veins of left upper extremity; D68.59 Other primary thrombophilia; E78.5 Hyperlipidemia, unspecified; I10 Essential (primary) hypertension; I25.10 Atherosclerotic heart disease of native coronary artery without angina pectoris; Z87.891 Personal history of nicotine dependence; Z88.8 Allergy status to other drugs, medicaments and biological substances; Z79.899 Other long term (current) drug therapy; Z95.1 Presence of aortocoronary bypass graft; Z95.0 Presence of cardiac pacemaker ==